=== PATIENT | female | born 1945 | race Caucasian/White ===

== ENCOUNTER → 2016-11-10 | Outpatient (CLI) | payer BC ==
[~2016-11-10] MED LIST: AMLO2.5T PO; ATOR10TA88 PO; B-COCAP2 PO; CHOL100010 PO; CYCL0.052 OP; ECOTRIN TAB81 MG PO; FLNIN NAE; LEVO50TA6 PO; LEVO75TA PO; LPT40 PO; METO25TA3 PO; METO25TA56 PO; MULT-506 PO; NTRGSL/4 SL; OS CAL OR; PANT40TA PO; PLV75 PO; SYN75 PO; VITA400C15 PO; VITBC PO; [UNRECOGNIZED DRUG - OTHER] OR
--- NOTE | 2016-11-10 10:06 | DIAGNOSTIC IMAGING REPORT ---
KUB HISTORY: Left-sided abdominal pain. COMPARISON: KUB 04/10/2009. FINDINGS: The bowel gas pattern is unremarkable. There are no dilated loops of small bowel to suggest an obstruction. No renal calculi. No ureteral calculi. Calcifications in the deep pelvis likely represent phleboliths. These remain unchanged. Prior rectal anastomosis with surgical clips within the left deep pelvis. Cholecystectomy clips are again noted. Moderate amount well-formed stool seen within the descending colon, sigmoid colon, and rectum. No pneumoperitoneum or pneumatosis. IMPRESSION: 1. Moderate well-formed stool seen within the distal colon. 2. Postoperative changes, unchanged. 3. No evidence for bowel obstruction. Electronically signed by: Olvin Langley M.D. 11/10/2016 10:04 AM Dictated Date/Time: 11/10/2016 10:03 AM
[2016-11-19 15:01] LABS: CRYPTOSPORIDIUM AG TC 37213 NOT DETECTED (NOT DETECTED); O&P GIARDIA AG NOT DETECTED (NOT DETECTED); O&P SOURCE OTHER
== END | disposition home or self-care (01) ==
LOC: C.RADBC 09:23
PROVIDERS: ATTEND Nurse Practitioner Family
DX: R10.9 Unspecified abdominal pain (principal); R14.0 Abdominal distension (gaseous); R19.5 Other fecal abnormalities; Z87.11 Personal history of peptic ulcer disease

== ENCOUNTER 2016-12-29 07:56 | Observation (INO) | payer BC ==
[2016-12-27 12:13] LABS: HEMATOCRIT 41.7 % (37-47); MEAN CELL VOLUME 94.1 fL (80-100); MEAN CORPUSCULAR HEMOGLOBIN 31.2 pg (25-34); MEAN CORPUSCULAR HGB CONC 33.1 g/dl (32-36); MEAN PLATELET VOLUME 11.5 fL (7.4-10.4); PLATELET COUNT 228 K/uL (130-400); RED BLOOD COUNT 4.43 M/uL (4.2-5.4); WHITE BLOOD COUNT 5.84 K/uL (4.8-10.8)
[2016-12-27 12:18] LABS: PROTHROMBIN TIME (PATIENT) 10.4 SECONDS (9.0-12.0)
[2016-12-27 13:57] LABS: BLOOD UREA NITROGEN 16 mg/dl (7-18); BUN/CREATININE RATIO 14.4 (10-20); CALCIUM 9.7 mg/dl (8.5-10.1); CARBON DIOXIDE 28 mmol/L (21-32); CHLORIDE 107 mmol/L (98-107); GLUCOSE 89 mg/dl (70-99); POTASSIUM 4.3 mmol/L (3.5-5.1); SODIUM 142 mmol/L (136-145)
[~2016-12-29] VITALS: Ht 152.4 cm; Wt 61.3 kg
[2016-12-29] VITALS (13 sets, daily range): BP systolic 106–165; BP diastolic 52–86; PULSE 46–63; TEMP 36.4–36.7; O2SAT 95–98; Ht 152.4 cm; Wt 61.3 kg
[~2016-12-29 07:56] MED LIST changes: +ATOR10TA82 PO; -ATOR10TA88 PO; -LPT40 PO; -PLV75 PO
--- NOTE | 2016-12-29 09:21 | History & Physical Bridge Note ---
H&P Re-Evaluation Bridge Note: I have examined the patient, reviewed the History & Physical and in the interval since the performance of the History & Physical I have noted the following changes of clinical significance:SHe has been having more frequent episodes of chest pain. Some at rest.
--- NOTE | 2016-12-29 09:24 | Procedure Note ---
Pre-Mod Sedation Assessment General Date of Moderate Sedation: December 29, 2016. Vital Signs: Vital Signs Past 12 Hours Date Time Temp Pulse Resp B/P Pulse Ox O2 Delivery O2 Flow Rate FiO2 12/29/16 08:31 36.7 63 16 165/75 96 Room Air Review Cardiovascular: regular rate, rhythm Lungs: lungs clear Pre-Sedation Airway Assessment Oral Cavity: WNL Able to Visualize Vocal Cords: No Short Thick Neck: No Hx of Sleep Apnea: No Smoking Status: Never Smoker Mallampati Classification: Class III ASA Classification: Class III Procedure Planning Contraindications-for Mod Sed: None Yes Notes The planned sedation has been discussed with the patient and consent obtained. I have identified the patient, determined the appropriateness of sedation and have assessed the patient immediately prior to the procedure. All medicine(s) and interventions are by my order.
[2016-12-29] MEDS ORDERED: FENTANYL CITRATE INJ 50 MCG/1 ML 2 ML VIAL ONE (11:15)
[2016-12-29] MEDS ORDERED: NiCARDipine HCL INJ 2.5 MG/ML 10 ML AMP ONE (11:15)
[2016-12-29] MEDS ORDERED: HEPARIN SOD (PORCINE) 1000 UNIT/ML 10 ML VIAL ONE (11:15)
[2016-12-29] MEDS ORDERED: NITROGLYCERIN/D5W 100MCG/ML 20ML SYR ONE (11:15)
[2016-12-29] MEDS ORDERED: MIDAZOLAM HCL 1 MG/ML 2ML VIAL ONE (11:15)
[2016-12-29] MEDS ORDERED: CLOPIDOGREL BISULFATE 300 MG TAB PO ONE (13:24)
--- NOTE | 2016-12-29 13:28 | Procedure Note ---
Post-Mod Sedation Assessment General Date of Moderate Sedation December 29, 2016. Vital Signs: Vital Signs Past 12 Hours Date Time Temp Pulse Resp B/P Pulse Ox O2 Delivery O2 Flow Rate FiO2 12/29/16 13:15 53 18 122/68 99 Mask 3 12/29/16 08:31 36.7 63 16 165/75 96 Room Air Review - Discharge Criteria Vital Signs Stable: Yes Alert/Oriented/Conversant: Yes Returned to Baseline Mental St: Yes Nausea Absent/Minimal: Yes Pain/Discomfort/Absent/Minimal: Yes Normal/Baseline Respirations: Yes Active Bleeding?: No Pt Received D/C Instructions: N/A Prescriptions Given: None Specific Proced. D/C Criteria Distal Pulses Present (Cardiac: Yes Groin site assessed-Card Cath: N/A Voided Prior To Discharge: N/A Discharged Patients Adult Escort/Transportation: Yes
[2016-12-29] MEDS ORDERED: NITROGLYCERIN 0.4 MG SL PER TAB CHARGE SL PRN (13:30)
[2016-12-29] MEDS ORDERED: SODIUM CHLORIDE 0.9% 1000ML 1,000 ML IV SCH (13:30)
[2016-12-29] MEDS ORDERED: ONDANSETRON INJ 2 MG/ML 2 ML VIAL IV PRN (13:30)
--- NOTE | 2016-12-29 13:43 | Cardiac Catheterization ---
Procedure Note Procedure Date December 29, 2016. Pre-Procedure Diagnosis Angina, Positive Stress Test AUC Score 7 Post-Procedure Diagnosis Severe CAD, Successful PCI Procedure(s) Performed Drug Eluting Stent Twister Hand Dr. Russ Automobile Mechanic Apprentice(s) Glunt Estimated Blood Loss 20 Medication(s) Clopidogrel, Heparin, Nitroglycerin Summary of Findings Indication: Positive stress/Unstable angina Access: 6Fr Slender Right Radial Artery Catheters: EBU 3.5 guide Findings: For full details of patient's coronary anatomy please see cath report dictated by Dr. Tang. Briefly patient found to have a 95% proximal LAD stenosis at the take-off a small-moderate caliber 1st diagonal. 1st diagonal with 95% ostial stenosis. -- PCI -- Antithrombotic therapy: Heparin, Clopidogrel Procedure: LM cannulated with EBU 3.5 guide BMW wire passed across lesion into distal LAD Prowater wire passed across diagonal lesion into distal vessel LAD lesion predilated with 2.0 compliant balloon Diagonal lesion predilated with 2.0 compliant balloon Dilated proximal LAD lesion stented with 3.0 x 15 Xience CRUZITO Diagonal re-wired with Special Education Paraprofessional 50 wire Stent struts dilated with 1.5 and 2.0 balloons. Kissing balloon inflation with 3.0 NC in LAD an 2.0 balloon in diagonal IC vasodilators administered for spasm Post procedure VAN 3 flow, stent well expanded with minimal residual stenosis and no apparent cardiac complications. 20-30% residual ostial stenosis in diagonal, no evidence of flow limiting dissection. Arterial Closure: TR Band Summary: 1. Successful PCI of proximal LAD, 1st diagonal bifurcation with one CRUZITO (3.0 x 15 Xience) and kissing balloon inflation of LAD/Diagonal. Recommendations: To PCU for continued monitoring Loaded with Clopidogrel 600 mg in research laboratory specialist. Continue dual-antiplatelet therapy with ASA/Clopidogrel for 1 year Start high-intensity statin, continue metoprolol and ASCVD risk factor modification Consult cardiac Rehab Hemodynamics Rest Ao: 131/61/90 Final Ao: 129/52/81 LV: -- Recommendations PCI without planned CABG Specimens None Radiation Exposure (mGy) 1944 Contrast (mls) 120 Visi Fluids (cc crystalloids) 175 Drains None Anesthesia Moderate Procedural Complication(s) None Disposition PCU ACC Data Cardiac Status Clinical evaluation leading to the procedure CAD Presntation: Unstable angina, Positive Stress Test Anginal Classification: CCS III Heart Failure: No, Yes, NYHA Class: CCS I Cardiogenic Shock w/in 24Hrs: No Cardiac Arrest w/in 24Hrs: No Imaging studies past 6 months: Yes Stress studies past 6 months: Yes Standard Exercise Stress Test: No Stress Echocardiogram: Yes - Positive Stress Testing w/SPECT MPI: No Cardiac CTA: No Coronary Anatomy Dominant: Right LAD (% Stenosis): Proximal (95) D1 (% Stenosis): Ostial (95) Diagnostic Physician's Name: Javon Tang MD Status: Elective Closure Device Percutaneous Entry Location: Radial Recommendations: PCI without planned CABG PCI Indication: Unstable Angina, + Stress Test Lesion Segment Name: Proximal LAD Culprit Artery: Yes Stenosis Prior to Rx (%): 95 Chronic Total Occlusion: No IVUS: No Pre-Procedure VAN Flow: 3 Previously Treated Lesion: No Lesion Complexity: High/C Lesion Length (mm): 12 Thrombus Present: No Bifurcation Lesion: Yes Guidewire Across Lesion: Yes Guidewire: Stenosis Post-Procedure (%): 0 Post-Procedure VAN Flow: 3 Device(s) Deployed: Yes Type of Device(s): Xience 3.0 x 15 Intraprocedure Events Significant Dissection: No Perforation: No
[2016-12-29] MEDS ORDERED: IV FLUIDS COMPLETED PRN (14:00)
[2016-12-29] MEDS: ACETAMINOPHEN 325 MG TAB PO PRN ×2 (15:05→22:23)
[2016-12-29] MEDS ORDERED: MoRPHine SULFATE 2 MG/ML CARP IV PRN (16:30)
[2016-12-30 00:07] VITALS: BP 106/55; PULSE 61; TEMP 36.6; O2SAT 97
[2016-12-30] MEDS: RESTASIS-ORDER AWAITING ACTION SCH ×3 (00:51→07:48)
[2016-12-30 03:32] VITALS: BP 118/72; PULSE 60; TEMP 36.3; O2SAT 97
[2016-12-30] MEDS ORDERED: LEVOTHYROXINE 50 MCG TAB PO SCH (06:30)
[2016-12-30 07:26] LABS: BASO % 0.3 %; BASO ABS # 0.02 K/uL (0-0.2); COMPLETE YES; EOS % 0.6 %; HEMATOCRIT 35.7 % (37-47); IG% 0.1 %; MEAN CELL VOLUME 93.5 fL (80-100); MEAN CORPUSCULAR HEMOGLOBIN 30.4 pg (25-34); MEAN CORPUSCULAR HGB CONC 32.5 g/dl (32-36); MEAN PLATELET VOLUME 11.4 fL (7.4-10.4); MONO % 9.4 %; NEUT % 63.6 %; PLATELET COUNT 177 K/uL (130-400); RED BLOOD COUNT 3.82 M/uL (4.2-5.4); WHITE BLOOD COUNT 6.92 K/uL (4.8-10.8)
--- NOTE | 2016-12-30 07:37 | Procedure Note ---
Post-Mod Sedation Assessment General Date of Moderate Sedation December 30, 2016. Vital Signs: Vital Signs Past 12 Hours Date Time Temp Pulse Resp B/P Pulse Ox O2 Delivery O2 Flow Rate FiO2 12/30/16 04:00 Room Air 12/30/16 03:32 36.3 60 16 118/72 97 Room Air 12/30/16 00:07 36.6 61 16 106/55 97 Room Air 12/30/16 00:00 Room Air 12/29/16 20:00 Room Air 12/29/16 19:43 36.6 63 16 136/78 98 Room Air Review - Discharge Criteria Vital Signs Stable: Yes Alert/Oriented/Conversant: Yes Returned to Baseline Mental St: Yes Nausea Absent/Minimal: Yes Pain/Discomfort/Absent/Minimal: Yes Normal/Baseline Respirations: Yes Active Bleeding?: No Pt Received D/C Instructions: N/A Prescriptions Given: None Specific Proced. D/C Criteria Distal Pulses Present (Cardiac: Yes Groin site assessed-Card Cath: N/A Voided Prior To Discharge: N/A Discharged Patients Adult Escort/Transportation: Yes
[2016-12-30 07:45] VITALS: BP 133/70; PULSE 76; TEMP 36.5; O2SAT 98
[2016-12-30 08:04] LABS: BUN/CREATININE RATIO 17.2 (10-20); CREATININE 0.83 mg/dl (0.60-1.20); POTASSIUM 3.7 mmol/L (3.5-5.1)
[2016-12-30] MEDS ORDERED: PLV75 PO (08:29)
[2016-12-30] MEDS ORDERED: LPT40 PO (08:29)
--- NOTE | 2016-12-30 08:36 | Discharge Instructions ---
Discharge Instructions Date of Service December 30, 2016. Admission Reason for Admission: CAD Discharge Discharge Diagnosis / Problem: stent in LAD Discharge Goals Goal(s): Decrease discomfort, Improve function Activity Recommendations Activity Limitations: per Instructions/Follow-up section Lifting Limitations: no more than 10 pounds Exercise/Sports Limitations: rest today, gradually increase as tolerated May Resume Sexual Activity: after one week Driving or Machine Use: resume 3 days after discharge ACTIVITY RECOMMENDATIONS: Excess manipulation of the wrist should be avoided for the next 24-48 hours. * No lifting over 2 pounds (approximately a 1/2 gallon of milk) with the utilized arm for 24 hours. * No strenuous activity such as bowling or tennis for 3 days. * Keep the site of the procedure covered with a bandage for 24 hours. *You may shower the day after the procedure. Do not take a tub bath or submerge the puncture site in water for the next 3 days. *Do not operate any motorized equipment for 3 days. SPECIAL CARE INSTRUCTIONS: The site may be slightly bruised and sore following your procedure. Should any of the following occur, contact the Dr. who performed your procedure. 1. Redness/inflammation, swelling, chills, or fever, or colored drainage at procedure site within 3-7 days after your procedure. 2. Coldness, discoloration, ongoing numbness, severe pain, or swelling. Expect mild tingling of hand and tenderness at the puncture site for up to three days. If this persists beyond three days, or other symptoms develop, notify the Dr. who performed your procedure. BLEEDING: If the procedure site on your wrist begins to bleed, do not panic 1. Place 1 or 2 fingers firmly just slightly above the insertion site to stop the bleeding. You may be able to feel your pulse as you hold pressure. 2. Lift your finger after 5 minutes to see if the bleeding has stopped. 3. Once the bleeding has stopped, gently wipe the wrist area clean with a bandage. * If the bleeding from your wrist does not stop after 10 minutes, or if there is a large amount of bleeding or spurting, call 911 (do not drive yourself to the hospital). SKIN IRRITATION: * You may experience some redness and/or swelling in the area where radiation was administered. If any skin irritation occurs, please contact your family physician. FOLLOW UP VISIT: Keep any scheduled doctor appointments. . Instructions / Follow-Up Instructions / Follow-Up ACTIVITY RECOMMENDATIONS: Excess manipulation of the wrist should be avoided for the next 24-48 hours. * No lifting over 2 pounds (approximately a 1/2 gallon of milk) with the utilized arm for 24 hours. * No strenuous activity such as bowling or tennis for 3 days. * Keep the site of the procedure covered with a bandage for 24 hours. *You may shower the day after the procedure. Do not take a tub bath or submerge the puncture site in water for the next 3 days. *Do not operate any motorized equipment for 3 days. SPECIAL CARE INSTRUCTIONS: The site may be slightly bruised and sore following your procedure. Should any of the following occur, contact the Dr. who performed your procedure. 1. Redness/inflammation, swelling, chills, or fever, or colored drainage at procedure site within 3-7 days after your procedure. 2. Coldness, discoloration, ongoing numbness, severe pain, or swelling. Expect mild tingling of hand and tenderness at the puncture site for up to three days. If this persists beyond three days, or other symptoms develop, notify the Dr. who performed your procedure. BLEEDING: If the procedure site on your wrist begins to bleed, do not panic 1. Place 1 or 2 fingers firmly just slightly above the insertion site to stop the bleeding. You may be able to feel your pulse as you hold pressure. 2. Lift your finger after 5 minutes to see if the bleeding has stopped. 3. Once the bleeding has stopped, gently wipe the wrist area clean with a bandage. * If the bleeding from your wrist does not stop after 10 minutes, or if there is a large amount of bleeding or spurting, call 911 (do not drive yourself to the hospital). SKIN IRRITATION: * You may experience some redness and/or swelling in the area where radiation was administered. If any skin irritation occurs, please contact your family physician. FOLLOW UP VISIT: Keep any scheduled doctor appointments. Current Hospital Diet Patient's current hospital diet: AHA Diet (Heart Healthy) Discharge Diet Recommended Diet: AHA Diet (Heart Healthy) Fluid Restriction: None Procedures Procedures Performed: cardiac cath with stent placed i n left anterior decending artery Pending Studies Studies pending at discharge: no Medical Emergencies ACTIVITY RECOMMENDATIONS: Excess manipulation of the wrist should be avoided for the next 24-48 hours. * No lifting over 2 pounds (approximately a 1/2 gallon of milk) with the utilized arm for 24 hours. * No strenuous activity such as bowling or tennis for 3 days. * Keep the site of the procedure covered with a bandage for 24 hours. *You may shower the day after the procedure. Do not take a tub bath or submerge the puncture site in water for the next 3 days. *Do not operate any motorized equipment for 3 days. SPECIAL CARE INSTRUCTIONS: The site may be slightly bruised and sore following your procedure. Should any of the following occur, contact the Dr. who performed your procedure. 1. Redness/inflammation, swelling, chills, or fever, or colored drainage at procedure site within 3-7 days after your procedure. 2. Coldness, discoloration, ongoing numbness, severe pain, or swelling. Expect mild tingling of hand and tenderness at the puncture site for up to three days. If this persists beyond three days, or other symptoms develop, notify the Dr. who performed your procedure. BLEEDING: If the procedure site on your wrist begins to bleed, do not panic 1. Place 1 or 2 fingers firmly just slightly above the insertion site to stop the bleeding. You may be able to feel your pulse as you hold pressure. 2. Lift your finger after 5 minutes to see if the bleeding has stopped. 3. Once the bleeding has stopped, gently wipe the wrist area clean with a bandage. * If the bleeding from your wrist does not stop after 10 minutes, or if there is a large amount of bleeding or spurting, call 911 (do not drive yourself to the hospital). SKIN IRRITATION: * You may experience some redness and/or swelling in the area where radiation was administered. If any skin irritation occurs, please contact your family physician. FOLLOW UP VISIT: Keep any scheduled doctor appointments. . Who to Call and When: Medical Emergencies: If at any time you feel your situation is an emergency, please call 911 immediately. . Non-Emergent Contact Non-Emergency issues call your: Customer Trainer . . "Provider Documentation" section prepared by Dae Tang. . VTE Core Measure Inpt VTE Proph given/why not?: Other Anticoagulation
--- NOTE | 2016-12-30 08:39 | Discharge Summary ---
Discharge Summary Admission Date: December 29, 2016 at 12:41 Discharge Date: December 30, 2016 Discharge Disposition: Home Primary Diagnosis: unstable angina Procedures: cardiac cath and stent placement to LAD Discharge Instructions Last Recorded Wt (Kilograms): 61.300 Activity Recommendations: limitations Return to School/Work: limitations Diet At Discharge: low sodium, low cholesterol Allergies: Coded Allergies: Clarithromycin (Verified Adverse Reaction, Unknown, MOUTH SORES, 11/10/15) Home Health Services: none Special Care: Call your doctor if: * Temperature above 101 degrees * Pain not relieved by pain medicine ordered * There is increased drainage or redness from any incision * You have any unanswered questions or concerns. Avoid all tobacco products. If you need help to stop smoking, call [place]'s FREE QUITLINE at . This is a free call. Admission HPI Patient with h istory aof CAD and unstable angina Admission Physical Exam Head: normocephalic Cardiovascular: Heart Auscultation: RRR Peripheral Pulses: Radial Pulse: normal on the right Extremities: no cyanosis Hospital Course (1) CAD (coronary artery disease) Hospital Course: Patient had some nausea, headache and abdominal pain after the procedure which resolved with time and narcotics. Normal EKG at that time. Otherwise uncomplicated stenting of the LAD. Total time spent on discharge = This includes examination of the patient, discharge planning, medication reconciliation, and communication with other providers.
[2016-12-30] MEDS ORDERED: ATORVASTATIN 40 MG TAB PO SCH (09:00)
[2016-12-30] MEDS ORDERED: ASPIRIN 81 MG ECTAB PO SCH (09:00)
[2016-12-30] MEDS ORDERED: CHOLECALCIFEROL 1000 INTER.UNIT TAB PO SCH (09:00)
[2016-12-30] MEDS ORDERED: CLOPIDOGREL BISULFATE 75 MG TAB PO SCH (09:00)
[2016-12-30] MEDS ORDERED: PANTOprazole SOD 40 MG TAB PO SCH (09:00)
[2016-12-30] MEDS ORDERED: AMLODIPINE BESYLATE 5 MG TAB PO SCH (09:00)
[2016-12-30] MEDS ORDERED: METOPROLOL TARTRATE 25 MG TAB PO SCH (09:00)
[2016-12-30] MEDS ORDERED: VITAMIN B COMPLEX TAB PO SCH (09:00)
[2016-12-30] MEDS ORDERED: TOCOPHERYL, DL-ALPHA 400 INTER.UNIT CAP PO SCH (09:00)
--- NOTE | 2016-12-30 10:00 | CARDIAC CATH REPORT ---
PROCEDURE PERFORMED: Coronary angiography. DIRECTOR OF REHABILITATIVE SERVICES: Dr. Javon Tang. INDICATION: Mrs. Isadora Ervin is a 71-year-old female with a history of coronary artery disease involving ostial stenosis of the first diagonal branch. The patient has been having more episodes of both exertional and rest chest pain over the past few weeks. Additionally, she underwent exercise echocardiography, which suggested inducible ischemia in the inferior distribution. Based on the symptoms, she was advised to undergo cardiac catheterization today. PROCEDURE IN DETAIL: The patient was informed of the risks, benefits and alternatives to the intended procedures. She understood such and wished to proceed. She was taken to the cardiac catheterization suite in a fasting state. Conscious sedation was administered per protocol and the patient was monitored electrocardiographically throughout today's procedure. The right wrist area was prepped and draped in the usual fashion. The right radial artery was then accessed using a modified Seldinger technique. A sheath was placed over guidewire at this site and used to passage of the cardiac catheters for engaging the coronary arteries. Coronary angiography was then performed in multiple orthogonal views prior to removal of the catheters. The patient tolerated the procedure well. There were no immediate complications. Opening aortic pressure is 103/48. CORONARY ANGIOGRAPHY: 1. LEFT MAIN: Left main coronary artery was normal in size and caliber and bifurcated normally into the left anterior descending and left circumflex artery. 2. LEFT ANTERIOR DESCENDING: Left anterior descending artery was a large transapical vessel. There was a 99% stenosis involving the body of the LAD and the first diagonal branch. Remainder of the vessel was free of angiographic disease. 3. LEFT CIRCUMFLEX: The left circumflex artery was a non-dominant vessel. It bifurcated in to several OM branches without evidence of obstructive coronary disease. 4. RIGHT CORONARY: The right coronary was a dominant vessel, which produced the PDA. There was no significant angiographic disease in this distribution. IMPRESSION: Significant stenosis involving the proximal left anterior descending at the level of the first diagonal branch. PLAN: The patient will be referred for immediate percutaneous intervention involving this vessel.
[2016-12-30 10:46] VITALS: BP 133/70; PULSE 76; TEMP 36.5; O2SAT 98
[2016-12-31] MEDS ORDERED: LEVOTHYROXINE 75 MCG TAB PO SCH (06:30)
== END 2016-12-30 11:30 | disposition home or self-care (01) ==
LOC: ENRESERVDT → ENRESERVTM → C.CATH 07:56 → C.2T 12:41
PROVIDERS: ADMIT Internal Medicine Interventional Cardiology; ATTEND Orthopaedic Surgery Orthopaedic Surgery of the Spine
DX: I25.110 Atherosclerotic heart disease of native coronary artery with unstable angina pectoris (principal)

== ENCOUNTER → 2017-02-09 | Outpatient (CLI) | payer BC ==
[~2017-02-09] MED LIST changes: -ATOR10TA82 PO; -B-COCAP2 PO; -FLNIN NAE; +LPT40 PO; -METO25TA3 PO; -MULT-506 PO; -OS CAL OR; +PLV75 PO; -SYN75 PO; -[UNRECOGNIZED DRUG - OTHER] OR
--- NOTE | 2017-02-10 07:58 | MAMMOGRAPHY REPORT ---
BILATERAL DIGITAL SCREENING MAMMOGRAM TOMOSYNTHESIS WITH CAD: 02/09/2017 CLINICAL HISTORY: Routine screening. Patient has no complaints. TECHNIQUE: Breast tomosynthesis in addition to standard 2D mammography was performed. Current study was also evaluated with a Computer Aided Detection (CAD) system. COMPARISON: Comparison is made to exams dated: 05/24/2016 mammogram, 12/29/2015 mammogram, 12/23/2014 ma mmogram - [facility], 10/10/2012 mammogram, 10/05/2010 mammogram, and 09/15/2007 mammo gram. BREAST COMPOSITION: The tissue of both breasts is almost entirely fatty. FINDINGS: No suspicious masses, calcifications, or areas of architectural distortion are noted in ei ther breast. There has been no significant interval change compared to prior exams. A linear scar jessica rkcesar denotes a scar on the right anterior breast on the MLO view. IMPRESSION: ACR BI-RADS CATEGORY 1: NEGATIVE There is no mammographic evidence of malignancy. A 1 year screening mammogram is recommended. The pa tient will receive written notification of the results. Approximately 10% of breast cancers are not detected with mammography. A negative mammographic report should not delay biopsy if a clinically suggestive mass is present. Kathie Callejas M.D. /:02/09/2017 14:29:42 Diesel Lube Tech: Batsheva CARMEN)(Fiona)(BD), [facility] letter sent: Normal 1/2 BI-RADS Code: ACR BI-RADS Category 1: Negative
== END | disposition home or self-care (01) ==
LOC: C.MAMM 11:34
PROVIDERS: ATTEND Obstetrics & Gynecology
DX: Z12.31 Encounter for screening mammogram for malignant neoplasm of breast (principal)

== ENCOUNTER → 2017-04-26 | Outpatient (CLI) | payer BC | END | disposition home or self-care (01) | LOC: C.LAB1850 08:41 | PROVIDERS: ATTEND Internal Medicine Clinical Cardiac Electrophysiology | DX: Z01.89 Encounter for other specified special examinations (principal) ==

== ENCOUNTER → 2017-07-18 | Outpatient (CLI) | payer BC ==
--- NOTE | 2017-07-18 09:39 | DIAGNOSTIC IMAGING REPORT ---
CHEST 2 VIEWS ROUTINE HISTORY: Cough. COMPARISON: Chest 10/04/2012. FINDINGS: Focal consolidation seen within the right upper lobe anteriorly. This is best seen on the lateral view. The left lung is clear. The heart is normal in size. No pleural effusions. No pneumothorax. IMPRESSION: Small focal consolidation within the right upper lobe anteriorly which favors a pneumonia. However, a focus of atelectasis could also have a similar appearance. One month chest x-ray follow up is recommended to ensure complete resolution. However, if the patient is not experiencing pneumonia type symptoms then a dedicated chest CT is recommended to exclude an underlying pulmonary lesion. Electronically signed by: Olvin Langley M.D. 07/18/2017 9:38 AM Dictated Date/Time: 07/18/2017 9:32 AM
== END | disposition home or self-care (01) ==
LOC: C.RAD1850 09:17
PROVIDERS: ATTEND Family Medicine Hospice and Palliative Medicine
DX: R05 Cough (principal)

== ENCOUNTER → 2017-08-29 | Outpatient (CLI) | payer BC ==
--- NOTE | 2017-08-29 14:08 | DIAGNOSTIC IMAGING REPORT ---
TWO VIEW CHEST CLINICAL HISTORY: Follow-up right upper lobe pneumonia. FINDINGS: PA and lateral chest radiographs are compared to study dated 07/18/2017. The cardiomediastinal silhouette is unremarkable. There is atherosclerotic calcification of the thoracic aorta. The lungs and pleural spaces are clear. There is no pneumothorax. The skeletal structures are osteopenic. The bony thorax appears intact. Cholecystectomy clips are seen in the right upper quadrant. IMPRESSION: The lungs are clear. Right upper lobe consolidation seen on 07/10/2017 has resolved. Electronically signed by: Baljeet El M.D. 08/29/2017 2:07 PM Dictated Date/Time: 08/29/2017 2:05 PM
[2017-08-29 14:36] LABS: HEMATOCRIT 41.1 % (37-47); HEMOGLOBIN 14.1 g/dL (12.0-16.0); MEAN CELL VOLUME 91.9 fL (80-100); MEAN CORPUSCULAR HEMOGLOBIN 31.5 pg (25-34); MEAN CORPUSCULAR HGB CONC 34.3 g/dl (32-36); MEAN PLATELET VOLUME 11.4 fL (7.4-10.4); PLATELET COUNT 256 K/uL (130-400); RED CELL DISTRIBUTION WIDTH CV 13.1 % (11.5-14.5); RED CELL DISTRIBUTION WIDTH SD 43.5 fL (36.4-46.3); WHITE BLOOD COUNT 6.72 K/uL (4.8-10.8)
[2017-08-29 14:48] LABS: PTT PATIENT 25.4 SECONDS (21.0-31.0)
[2017-08-29 15:07] LABS: BLOOD UREA NITROGEN 13 mg/dl (7-18); CALCIUM 8.9 mg/dl (8.5-10.1); CARBON DIOXIDE 28 mmol/L (21-32); CREATININE 1.09 mg/dl (0.60-1.20); GLUCOSE 86 mg/dl (70-99); SODIUM 137 mmol/L (136-145)
== END | disposition home or self-care (01) ==
LOC: C.LAB1850 13:16
PROVIDERS: ATTEND Family Medicine Hospice and Palliative Medicine
DX: Z01.818 Encounter for other preprocedural examination (principal); J18.1 Lobar pneumonia, unspecified organism

== ENCOUNTER → 2017-10-05 | Outpatient (CLI) | payer BC ==
--- NOTE | 2017-10-05 15:32 | DIAGNOSTIC IMAGING REPORT ---
L ANKLE MIN 3 VIEWS ROUTINE CLINICAL HISTORY: M25.572 pain COMPARISON: None. DISCUSSION: The bones and joint spaces appear intact. There is no evidence of fracture, dislocation or bony disease. Mild lateral soft tissue edema IMPRESSION: Mild soft tissue edema. No acute bony abnormality. The above report was generated using voice recognition software. It may contain grammatical, syntax or spelling errors. Electronically signed by: Evan Sky M.D. 10/05/2017 3:31 PM Dictated Date/Time: 10/05/2017 3:30 PM
== END | disposition home or self-care (01) ==
LOC: C.LAB1850 15:17
PROVIDERS: ATTEND Physician Assistant
DX: M25.572 Pain in left ankle and joints of left foot (principal); M25.472 Effusion, left ankle

== ENCOUNTER 2020-12-03 16:41 | Observation (INO) ==
--- NOTE | 2020-12-03 17:18 | XRay Report ---
XR chest 1V portable HISTORY: 75 years-old Female Chest Pain acute atypical chest pain COMPARISON: Chest radiographs 08/29/2017 TECHNIQUE: Portable AP view of the chest FINDINGS: Cardiomediastinal and hilar silhouettes are within normal limits. Calcified plaque of the thoracic ao rta. No pneumothorax, pleural effusion, airspace consolidation or overt pulmonary edema. Bones of the chest appear grossly intact. Cholecystectomy. IMPRESSION: No acute process. ACT 112: Negative or not required by law. The above report was generated using voice recognition software. It may contain grammatical, syntax o r spelling errors. Electronically signed by: Roberto Russo M.D. 12/03/2020 5:17 PM
[2020-12-03 17:31] LABS: Basophils # (auto) 0.02 K/uL (0-0.2); Basophils % (auto) 0.3 %; Eosinophils # (auto) 0.07 K/uL (0-0.5); Eosinophils % (auto) 1.2 %; Hematocrit (blood only) 39.8 % (37-47); Hemoglobin 13.3 g/dL (12.0-16.0); Immature Granulocytes # (auto) 0.01 K/uL (0.00-0.02); Immature Granulocytes % (auto) 0.2 %; Lymphocytes # (auto) 1.45 K/uL (1.2-3.4); Lymphocytes % (auto) 24.6 %; Mean Corpuscular Hemoglobin 30.4 pg (25-34); Mean Corpuscular Hgb Conc 33.4 g/dL (32-36); Mean Corpuscular Volume 90.9 fL (80-100); Mean Platelet Volume 10.8 fL (7.4-10.4); Monocytes # (auto) 0.57 K/uL (0.11-0.59); Monocytes % (auto) 9.7 %; Neutrophils # (auto) 3.78 K/uL (1.4-6.5); Platelet Count 215 K/uL (130-400); RDW Coefficient of Variation 12.8 % (11.5-14.5); RDW Standard Deviation 42.4 fL (36.4-46.3); Red Blood Count 4.38 M/uL (4.2-5.4)
[2020-12-03 17:42] LABS: Partial Thromboplastin Time 26.7 Seconds (21.0-31.0); Prothrombin Time 10.4 Seconds (9.0-12.0)
[2020-12-03 17:48] LABS: Alanine Aminotransferase 20 U/L (12-78); Albumin Level 3.5 gm/dl (3.4-5.0); Aspartate Aminotransferase 18 U/L (15-37); BUN Creatinine Ratio 21.9 (10-20); Blood Urea Nitrogen 21 mg/dl (7-18); Calcium 8.6 mg/dl (8.5-10.1); Carbon Dioxide 27 mmol/L (21-32); Chloride 110 mmol/L (98-107); Est GFR (African American) 65.3; Est GFR (Non-African American) 56.3; Glucose 105 mg/dl (70-99); Potassium 3.8 mmol/L (3.5-5.1); Sodium 142 mmol/L (136-145)
[2020-12-03 17:53] LABS: Alkaline Phosphatase 78 U/L (45-117); Bilirubin,Total 0.4 mg/dl (0.2-1); Globulin 3.4 gm/dl (2.5-4.0); Total Protein 6.9 gm/dl (6.4-8.2); Troponin I < 0.015 ng/ml (0-0.045)
--- NOTE | 2020-12-03 18:10 | Emergency Department Note ---
History of Present Illness General Chief complaint: Chest Pain Stated complaint: CHEST TIGHTNESS/BURNING, SOB, COV NEG ON 12/02 Time Seen by Provider: 12/03/20 17:58 Source: patient Mode of arrival: ambulatory Limitations: no limitations History of Present Illness Provider complaint: chest pain Onset (ago): week(s) 1 Location: chest Radiation: non-radiation Severity: moderate Pain Consistency: + colicky Maximum Pain Intensity: 2 Quality: + burning and + sharp Exacerbated By: + other (lying supine) Associated symptoms: + shortness of breath; no fever/chills and no nausea/vomiting Treatments prior to arrival: none This is 75 yo female who presents with complaints of chest pressure that began last . Today pain was sharper and took her breath away. Pt does have hx of GERD and takes pantoprazole twice daily. Patient was worries about recent sinus infection and eye discharge and saw her eye doctor and ENT. She did see her cpas Dr. Smith last week after symptoms started and had an ekg in the office and was started on doxycycline for possible URI. COVID test the beginning of the week was negative. Patient states he has taken doxycycline the past and has not had any significant worsening reflux symptoms or additional GI irritation. Patient states her family doctor did suggest that could have been the reason for her symptoms and suggested she use Maalox in the interim. Jered mcleod states she drank an entire bottle of Maalox this afternoon and it did not help with her symptoms. Patient concerned given the persistent pressure and now worsening sharper pain today. Patient does feel slightly increased shortness of breath, no other radiation of pain. No lower extremity swelling or calf tenderness. Patient states Dr. Smith did schedule an echo for her in the fall. She cannot recall when her last echo or stress test were. Patient denies any trauma or change in activity. Patient is patient most concerned for her heart as she has a stent in her LAD and states she had atypical symptoms of a sore throat at that time. It was only found after an abnormal stress test. She states she was never told she had a heart attack. Pt seen during a time of high acuity and national emergency pandemic while wearing PPE. Home Medications Medication Instructions Recorded Confirmed Type Restasis 0.4 drp OPHTHALMIC (EYE) DAILY 01/10/19 12/03/20 History aspirin [Aspirin Low Dose] 81 mg PO DAILY 01/10/19 12/03/20 History ezetimibe 10 mg PO DAILY 01/10/19 12/03/20 History hydralazine 10 mg PO TID 01/10/19 12/03/20 History levothyroxine 50 mcg PO QAM 01/10/19 12/03/20 History levothyroxine 75 mcg PO QAM 01/10/19 12/03/20 History metoprolol succinate 12.5 mg PO DAILY 01/10/19 12/03/20 History vitamin E 100 unit PO DAILY 01/10/19 12/03/20 History pantoprazole 40 mg tablet,delayed 40 mg PO BID tab 06/23/20 12/03/20 History release multivitamin with minerals-folic 1 tab PO DAILY tab 08/03/20 12/03/20 History acid 200 mcg chewable tablet isosorbide mononitrate 30 mg 30 mg PO DAILY 10/05/20 12/03/20 History tablet,extended release 24 hr Allergies Allergy/AdvReac Type Severity Reaction Status Date / Time alcohol Allergy Unknown Verified 12/03/20 18:39 [From Mastisol Adhesive] atorvastatin [From Lipitor] Allergy Unknown Verified 12/03/20 18:39 citalopram [From Celexa] Allergy Unknown Verified 12/03/20 18:39 fexofenadine Allergy Unknown Verified 12/03/20 18:39 [From Rebecca-D 12 Hour] gum mastic Allergy Unknown Verified 12/03/20 18:39 [From Mastisol Adhesive] ketorolac [From Toradol] Allergy Unknown Verified 12/03/20 18:39 methyl salicylate Allergy Unknown Verified 12/03/20 18:39 [From Mastisol Adhesive] pseudoephedrine Allergy Unknown Verified 12/03/20 18:39 [From Rebecca-D 12 Hour] simvastatin [From Zocor] Allergy Unknown Verified 12/03/20 18:39 storax Allergy Unknown Verified 12/03/20 18:39 [From Mastisol Adhesive] clarithromycin AdvReac Intermediate MOUTH SORES Verified 12/03/20 18:39 ENVIRONMENTAL Allergy Intermediate YEAST/MOLD/DUST-SNEEZING, Uncoded 12/03/20 18:39 CONGESTION Past Med/Surg History Medical History Allergic rhinitis Chest pain GERD (gastroesophageal reflux disease) Hyperlipidemia Hypertension Hypothyroidism Peptic ulcer disease Plantar fasciitis of right foot Presence of drug coated stent in LAD coronary artery Surgical History H/O colonoscopy History of heart artery stent S/P breast lumpectomy S/P RIDGE-BSO S/P tooth extraction Family History Father Cancer Diabetes Stroke Mother Coronary heart disease Hypertension Heart disease Grandmother Coronary heart disease Sister Breast cancer, Onset Age: 66 Brother Hearing loss Other No family history of adverse response to anesthesia No family history of bleeding disorder Denies family history of Ovarian cancer Colorectal cancer Social History Smoking Status: Never smoker Hx Alcohol Use: Yes Hx Substance Use: No Preferred Language: Nepali Communication Ability: Effective Beliefs That Will Affect Care: None Current Living Situation: Alone Current Living Situation Comment: 7 steps into apartment building Feels Safe at Home: Yes Assistive Devices: None Review of Systems See HPI for pertinent positives & negatives. and A total of 10 systems reviewed and were otherwise negative Physical Exam Vital Signs Vital Signs - 24 hr 12/03/20 21:35 12/03/20 21:36 12/03/20 22:00 Pulse Rate 68 69 67 Pulse Rate from SpO2 Sensor 69 70 66 Respiratory Rate 17 18 19 Blood Pressure 179/94 H 160/95 H Blood Pressure Mean 122 116 Pulse Oximetry 97 97 96 Oxygen Delivery Method Room Air Room Air 12/03/20 22:30 12/03/20 23:00 12/03/20 23:30 Pulse Rate 61 61 62 Pulse Rate from SpO2 Sensor 61 61 63 Respiratory Rate 19 20 22 Blood Pressure 151/76 H 166/74 H 160/78 H Blood Pressure Mean 101 104 105 Pulse Oximetry 95 94 96 Oxygen Delivery Method Room Air Room Air Room Air GENERAL: alert, well appearing, well nourished, no distress, non-toxic EYE EXAM: normal conjunctiva, PERRL and EOM's grossly intact OROPHARYNX: no exudate, no erythema, lips, buccal mucosa, and tongue normal and mucous membranes are moist NECK: supple, no nuchal rigidity, no adenopathy, non-tender LUNGS: Clear to auscultation. Normal chest wall mechanics, no w/r/r HEART: no murmurs, S1 normal and S2 normal, no reproducible chest wall tenderness with percussion ABDOMEN: abdomen soft, non-tender, normo-active bowel sounds, no masses, no rebound or guarding. BACK: Back is symmetrical on inspection and there is no deformity, no midline tenderness, no CVA tenderness. SKIN: no rashes and no bruising UPPER EXTREMITIES: upper extremities are grossly normal. FROM, nml pulses b/l. LOWER EXTREMITIES: No pitting edema. FROM, nml pulses b/l. NEURO EXAM: Normal sensorium, cranial nerves II-XII grossly intact, normal speech, no gross weakness of arms, no gross weakness of legs. Gross sensation intact. Course Course 1910: Patient updated on results. States sharper pain is markedly improved however she does still feel a sense of pressure. 2033: Pt states still having chest pressure. Discussed cT results. Administered Medications Discontinued Medications Aspirin (Aspirin 81 Mg Ectab) 81 mg PO DAILY CLAUDIO Stop: 01/03/21 08:59 Last Admin: 12/04/20 07:55 Dose: 81 mg Documented by: [id number] Ezetimibe (Ezetimibe 10 Mg Tablet) 10 mg PO DAILY CLAUDIO Stop: 01/03/21 08:59 Last Admin: 12/04/20 07:55 Dose: 10 mg Documented by: [id number] Enoxaparin Sodium (Enoxaparin Inj 40 Mg/0.4 Ml Syr) 40 mg SQ Q24H CLAUDIO Stop: 01/03/21 08:59 Last Admin: 12/04/20 07:56 Dose: 40 mg Documented by: [id number] Famotidine (Famotidine 20mg/5ml Iv Push) 20 mg IV ONE STA Stop: 12/03/20 18:18 Last Admin: 12/03/20 18:38 Dose: 20 mg Documented by: [id number] Hydralazine HCl (Hydralazine 10 Mg Tab) 10 mg PO TID CLAUDIO Stop: 01/03/21 01:52 Last Admin: 12/04/20 14:20 Dose: 10 mg Documented by: [id number] Admin: 12/04/20 07:54 Dose: 10 mg Documented by: [id number] Admin: 12/04/20 04:15 Dose: 10 mg Documented by: [id number] Ioversol (Optiray 320 125ml) 118 ml IV ONCE ONE Stop: 12/03/20 19:33 Last Admin: 12/03/20 19:33 Dose: 1 ml Documented by: [id number] Isosorbide Mononitrate (Isosorbide [place] Extended Rel 30 Mg Tabcr) 30 mg PO DAILY [facility] Stop: 01/03/21 08:59 Last Admin: 12/04/20 07:54 Dose: 30 mg Documented by: [id number] Levothyroxine Sodium (Levothyroxine Sodium 50 Mcg Tablet) 50 mcg PO DAILYBB [facility] Stop: 01/03/21 06:29 Last Admin: 12/04/20 05:48 Dose: 50 mcg Documented by: [id number] Metoprolol Succinate (Metoprolol Succ 50mg Ext Rel Tab) 12.5 mg PO DAILY CLAUDIO Stop: 01/03/21 08:59 Last Admin: 12/04/20 07:55 Dose: 12.5 mg Documented by: [id number] Miscellaneous (Restasis~Order Awaiting Action) 1 ea N/A QS [facility] Stop: 01/03/21 07:59 Last Admin: 12/04/20 15:04 Dose: Not Given Documented by: [id number] Admin: 12/04/20 07:15 Dose: Not Given Documented by: [id number] Nitroglycerin (Nitroglycerin 2% Ointment 30gm Tube) 0.5 inch EXT NOW [facility] Stop: 12/03/20 20:40 Last Admin: 12/03/20 20:54 Dose: 0.5 inch Documented by: [id number] Pantoprazole Sodium (Pantoprazole 40 Mg Tab) 40 mg PO BID [facility] Stop: 01/03/21 08:59 Last Admin: 12/04/20 07:55 Dose: 40 mg Documented by: [id number] Sucralfate (Sucralfate 1 Gm/10 Ml Udc) 1 gm PO NOW STA Stop: 12/03/20 18:18 Last Admin: 12/03/20 18:38 Dose: 1 gm Documented by: [id number] Medical Decision Making Differential Diagnosis Differential diagnoses includes but is not limited to acute coronary syndrome, myocardial infarction, pericarditis, pulmonary embolus, aortic dissection, pneumonia, pneumothorax, musculoskeletal, shingles, esophageal. Medical Records Attestation: I reviewed the patient's medical records. Home Medications Current Medication List: was personally reviewed by me Laboratory Data Attestation: I reviewed the patient's lab results. Result diagrams: 12/04/20 06:15 12/04/20 06:15 Lab Results 12/03/20 12/03/20 12/03/20 Range/Units 17:22 17:22 17:22 WBC 5.90 (4.8-10.8) K/uL RBC 4.38 (4.2-5.4) M/uL Hgb 13.3 (12.0-16.0) g/dL Hct 39.8 (37-47) % MCV 90.9 (80-100) fL MCH 30.4 (25-34) pg MCHC 33.4 (32-36) g/dL RDW Std Deviation 42.4 (36.4-46.3) fL RDW Coeff of Jarrod 12.8 (11.5-14.5) % Plt Count 215 (130-400) K/uL MPV 10.8 H (7.4-10.4) fL Immature Gran % (Auto) 0.2 % Neut % (Auto) 64.0 % Lymph % (Auto) 24.6 % [place] % (Auto) 9.7 % Eos % (Auto) 1.2 % Baso % (Auto) 0.3 % Neut # (Auto) 3.78 (1.4-6.5) K/uL Lymph # (Auto) 1.45 (1.2-3.4) K/uL [place] # (Auto) 0.57 (0.11-0.59) K/uL Eos # (Auto) 0.07 (0-0.5) K/uL Baso # (Auto) 0.02 (0-0.2) K/uL Immature Gran # (Auto) 0.01 (0.00-0.02) K/uL PT 10.4 (9.0-12.0) Seconds INR 1.0 (0.9-1.1) APTT 26.7 (21.0-31.0) Seconds PTT Ratio 1.0 D-Dimer (0-500) ug/L FEU Sodium 142 (136-145) mmol/L Potassium 3.8 (3.5-5.1) mmol/L Chloride 110 H (98-107) mmol/L Carbon Dioxide 27 (21-32) mmol/L Anion Gap 5.0 (3-11) BUN 21 H (7-18) mg/dl Creatinine 0.97 (0.6-1.2) mg/dl Est Cr Clr Drug Dosing Not Reportable Est GFR ( Amer) 65.3 Est GFR (Non-Af Amer) 56.3 BUN/Creatinine Ratio 21.9 H (10-20) Glucose 105 H (70-99) mg/dl Calcium 8.6 (8.5-10.1) mg/dl Total Bilirubin 0.4 (0.2-1) mg/dl AST 18 (15-37) U/L ALT 20 (12-78) U/L Alkaline Phosphatase 78 (45-117) U/L Troponin I < 0.015 (0-0.045) ng/ml NT-Pro-B Natriuret Pep 359 (0-1800) pg/ml Total Protein 6.9 (6.4-8.2) gm/dl Albumin 3.5 (3.4-5.0) gm/dl Globulin 3.4 (2.5-4.0) gm/dl Albumin/Globulin Ratio 1.0 (0.9-2) Lipase 240 (73-393) U/L COVID-19 Eval Order SARS-CoV-2 (PCR) (Negative) Influenza Type A (PCR) (Neg) Influenza Type B (PCR) (Neg) RSV (RT-PCR) (Neg) 12/03/20 12/03/20 12/03/20 Range/Units 17:22 17:22 20:57 WBC (4.8-10.8) K/uL RBC (4.2-5.4) M/uL Hgb (12.0-16.0) g/dL Hct (37-47) % MCV (80-100) fL MCH (25-34) pg MCHC (32-36) g/dL RDW Std Deviation (36.4-46.3) fL RDW Coeff of Jarrod (11.5-14.5) % Plt Count (130-400) K/uL MPV (7.4-10.4) fL Immature Gran % (Auto) % Neut % (Auto) % Lymph % (Auto) % [place] % (Auto) % Eos % (Auto) % Baso % (Auto) % Neut # (Auto) (1.4-6.5) K/uL Lymph # (Auto) (1.2-3.4) K/uL [place] # (Auto) (0.11-0.59) K/uL Eos # (Auto) (0-0.5) K/uL Baso # (Auto) (0-0.2) K/uL Immature Gran # (Auto) (0.00-0.02) K/uL PT (9.0-12.0) Seconds INR (0.9-1.1) APTT (21.0-31.0) Seconds PTT Ratio D-Dimer 670 H* (0-500) ug/L FEU Sodium (136-145) mmol/L Potassium (3.5-5.1) mmol/L Chloride (98-107) mmol/L Carbon Dioxide (21-32) mmol/L Anion Gap (3-11) BUN (7-18) mg/dl Creatinine (0.6-1.2) mg/dl Est Cr Clr Drug Dosing Est GFR ( Amer) Est GFR (Non-Af Amer) BUN/Creatinine Ratio (10-20) Glucose (70-99) mg/dl Calcium (8.5-10.1) mg/dl Total Bilirubin (0.2-1) mg/dl AST (15-37) U/L ALT (12-78) U/L Alkaline Phosphatase (45-117) U/L Troponin I (0-0.045) ng/ml NT-Pro-B Natriuret Pep Cancelled (0-1800) pg/ml Total Protein (6.4-8.2) gm/dl Albumin (3.4-5.0) gm/dl Globulin (2.5-4.0) gm/dl Albumin/Globulin Ratio (0.9-2) Lipase Cancelled (73-393) U/L COVID-19 Eval Order CovFluRsv at [facility] SARS-CoV-2 (PCR) (Negative) Influenza Type A (PCR) (Neg) Influenza Type B (PCR) (Neg) RSV (RT-PCR) (Neg) 12/03/20 Range/Units 20:57 WBC (4.8-10.8) K/uL RBC (4.2-5.4) M/uL Hgb (12.0-16.0) g/dL Hct (37-47) % MCV (80-100) fL MCH (25-34) pg MCHC (32-36) g/dL RDW Std Deviation (36.4-46.3) fL RDW Coeff of Jarrod (11.5-14.5) % Plt Count (130-400) K/uL MPV (7.4-10.4) fL Immature Gran % (Auto) % Neut % (Auto) % Lymph % (Auto) % [place] % (Auto) % Eos % (Auto) % Baso % (Auto) % Neut # (Auto) (1.4-6.5) K/uL Lymph # (Auto) (1.2-3.4) K/uL [place] # (Auto) (0.11-0.59) K/uL Eos # (Auto) (0-0.5) K/uL Baso # (Auto) (0-0.2) K/uL Immature Gran # (Auto) (0.00-0.02) K/uL PT (9.0-12.0) Seconds INR (0.9-1.1) APTT (21.0-31.0) Seconds PTT Ratio D-Dimer (0-500) ug/L FEU Sodium (136-145) mmol/L Potassium (3.5-5.1) mmol/L Chloride (98-107) mmol/L Carbon Dioxide (21-32) mmol/L Anion Gap (3-11) BUN (7-18) mg/dl Creatinine (0.6-1.2) mg/dl Est Cr Clr Drug Dosing Est GFR ( Amer) Est GFR (Non-Af Amer) BUN/Creatinine Ratio (10-20) Glucose (70-99) mg/dl Calcium (8.5-10.1) mg/dl Total Bilirubin (0.2-1) mg/dl AST (15-37) U/L ALT (12-78) U/L Alkaline Phosphatase (45-117) U/L Troponin I (0-0.045) ng/ml NT-Pro-B Natriuret Pep (0-1800) pg/ml Total Protein (6.4-8.2) gm/dl Albumin (3.4-5.0) gm/dl Globulin (2.5-4.0) gm/dl Albumin/Globulin Ratio (0.9-2) Lipase (73-393) U/L COVID-19 Eval Order SARS-CoV-2 (PCR) NEGATIVE (Negative) Influenza Type A (PCR) Negative (Neg) Influenza Type B (PCR) Negative (Neg) RSV (RT-PCR) Negative (Neg) Imaging Data Radiologist's Impression: Chest X-Ray 12/03/20 16:54 XR chest 1V portable HISTORY: 75 years-old Female Chest Pain acute atypical chest pain COMPARISON: Chest radiographs 08/29/2017 TECHNIQUE: Portable AP view of the chest FINDINGS: Cardiomediastinal and hilar silhouettes are within normal limits. Calcified plaque of the thoracic aorta. No pneumothorax, pleural effusion, airspace consolidation or overt pulmonary edema. Bones of the chest appear grossly intact. Cholecystectomy. IMPRESSION: No acute process. ACT 112: Negative or not required by law. The above report was generated using voice recognition software. It may contain grammatical, syntax or spelling errors. Electronically signed by: Roberto Russo M.D. 12/03/2020 5:17 PM Chest CTA 12/03/20 19:18 CT angio chest PE protocol CT DOSE: 237.36 mGy.cm HISTORY: 75 years-old Female with PE. Acute shortness of breath TECHNIQUE: Multiple CTA images of the chest were obtained after the intravenous administration of 118 ml Optiray. Coronal and sagittal MIPS were obtained from the axial data set and were submitted for review. All measurements were obtained according to NASCET criteria. A dose lowering technique was utilized adhering to the principles of ALARA. COMPARISON: Chest radiograph of same day FINDINGS: CTA: The heart is upper limits of normal in size. No pericardial effusion. Moderate coronary artery calcifications. No thoracic aortic aneurysm or dissection. Mild luminal narrowing at the origin of the left subclavian artery. Patent innominate and right subclavian arteries. The pulmonary arterial tree is opacified to the level of the segmental branches and demonstrates no filling defects to suggest thromboembolic disease. CT CHEST: No thyroid nodule. Prominent 9 mm subcarinal lymph node. No pathologically enlarged lymph nodes by CT size criteria. There is no pneumothorax, pleural effusion, airspace consolidation or overt pulmonary edema. Minimal dependent bibasilar atelectasis. There are no suspicious pulmonary nodules or masses. The central airways are patent. No pneumoperitoneum. No acute process of the imaged upper abdomen. Unremarkable soft tissues. No acute fracture. IMPRESSION: 1. No acute intrathoracic abnormality. 2. No pulmonary emboli. ACT 112: Negative or not required by law. The above report was generated using voice recognition software. It may contain grammatical, syntax or spelling errors. Electronically signed by: Roberto Russo M.D. 12/03/2020 8:08 PM ECG Data Attestation: I personally reviewed and interpreted this ECG as follows: Indication: + chest pain Rate (beats per minute): 72 Rhythm: + normal sinus ECG Intervals/blocks: + Normal QRS and + Normal QT ECG [place]: + Normal ECG ST segments: + T-wave inversions (V3, III) Blood Pressure Blood Pressure Findings: Elevated blood pressure Blood Pressure Disposition: Referred to patients primary care provider MDM Narrative This is a 75 yo female who presents with concern for persistent chest pressue and accompanying sharper pain today. Pt did see her cpas and PCP as an outpt. Pt does have hx of GERD and did recently take doxycycline however she takes a PPI daily and did use maalox in addition without any improvement. States no prior hx of increased sx with use of doxycycline. Given hx of CAD, concern for evolving unstable angina, given no improvement with GI meds here. Labs reassuring, cxr and CTA chest reassuring. Patient with elevated HEART score, ongoing pain despite treatment despite reassuring ekg and negative troponin after >8 hrs of pain, case discussed with hospitalist for additional evaluation and treatment. Discussed all results with patient, she verbalized understanding and was in agreement with the plan. An order was placed for continuous cardiac monitoring. The monitor shows a rate of 82 with _normal sinus_ rhythm. Impression & Plan Atypical chest pain, GERD (gastroesophageal reflux disease), Hypertension Discharge Plan Visit Data Chief Complaint: Chest Pain Stated Complaint: CHEST TIGHTNESS/BURNING, SOB, COV NEG ON 12/02 ED Provider: Sue Rocha Discharge Problem: Atypical chest pain, GERD (gastroesophageal reflux disease), Hypertension Patient Disposition: Admitted As Inpatient Discharge Instructions Interventions: ED Discharge Assessment Last Done: 12/04/20 01:40 Discharge Problem: GERD (gastroesophageal reflux disease) Qualifiers: Esophagitis presence: esophagitis presence not specified Qualified Code(s): K21.9 - Gastro-esophageal reflux disease without esophagitis Hypertension Qualifiers: Hypertension type: essential hypertension Qualified Code(s): I10 - Essential (primary) hypertension
[2020-12-03] MEDS ORDERED: SUCRALFATE 1 GM/10 ML UDC PO STA (18:17)
[2020-12-03] MEDS ORDERED: FAMOTIDINE 20MG/5ML IV PUSH IV STA (18:17)
[2020-12-03 18:23] LABS: D Dimer 670 ug/L FEU (0-500)
[2020-12-03 18:30] LABS: Lipase 240 U/L (73-393); NT Pro B Type Natriuretic Pept 359 pg/ml (0-1800)
[2020-12-03] MEDS ORDERED: OPTIRAY 320 125ml IV ONE (19:32)
--- NOTE | 2020-12-03 20:09 | CT Scan Report ---
CT angio chest PE protocol CT DOSE: 237.36 mGy.cm HISTORY: 75 years-old Female with PE. Acute shortness of breath TECHNIQUE: Multiple CTA images of the chest were obtained after the intravenous administration of 118 ml Optiray. Coronal and sagittal MIPS were obtained from the axial data set and were submitted for review. All measurements were obtained according to NASCET criteria. A dose lowering technique was u tilized adhering to the principles of ALARA. COMPARISON: Chest radiograph of same day FINDINGS: CTA: The heart is upper limits of normal in size. No pericardial effusion. Moderate coronary artery calcif ications. No thoracic aortic aneurysm or dissection. Mild luminal narrowing at the origin of the left subclavian artery. Patent innominate and right subclavian arteries. The pulmonary arterial tree is o pacified to the level of the segmental branches and demonstrates no filling defects to suggest thromb oembolic disease. CT CHEST: No thyroid nodule. Prominent 9 mm subcarinal lymph node. No pathologically enlarged lymph nodes by CT size criteria. There is no pneumothorax, pleural effusion, airspace consolidation or overt pulmonary edema. Minimal dependent bibasilar atelectasis. There are no suspicious pulmonary nodules or masses. The central airways are patent. No pneumoperitoneum. No acute process of the imaged upper abdomen. Unremarkable soft tissues. No acut e fracture. IMPRESSION: 1. No acute intrathoracic abnormality. 2. No pulmonary emboli. ACT 112: Negative or not required by law. The above report was generated using voice recognition software. It may contain grammatical, syntax o r spelling errors. Electronically signed by: Roberto Russo M.D. 12/03/2020 8:08 PM
[2020-12-03] MEDS ORDERED: NITROGLYCERIN 2% OINTMENT 30GM TUBE EXT STA (20:39)
[2020-12-03 21:47] LABS: Influenza A virus by PCR Negative (Neg); Influenza B virus by PCR Negative (Neg); RSV by PCR Negative (Neg); SARS CoV2 RNA(COVID-19) InHosp NEGATIVE (Negative)
--- NOTE | 2020-12-04 00:44 | History & Physical Report ---
Date of Service December 04, 2020 Assessment & Plan Admission and Anticipated Discharge Date Admission Date: 83 y/o w/ pMHx. of GERD, HLD, HTN, Hypothyroidism, CAD s/p LAD stent in 2017; here for progressively worsening chest pain/pressure that radiates to her back exacerbated with breathing will want to rule out ACS although pericarditis, reflux and pleuritis (from Hydralazine?) are potential alternative diagnosis admit for obs. med/surg - tele Chest pain EKG with slight ST changes CTA - chest - no PE, no pericardial effusion, no acute intrathoracic abnormality [heart size top end of normal and 9mm subcarinal lymph node] CXR - no acute process troponin initially negative Heart score 6 moderate - trend troponin - ECHO ordered CAD s/p LAD stent - continue ASA, Ezetimibe Reflux, worsening - continue with home PPI Hypothyroidism - alternates 75/50 mcg - ordered 50 mcg HTN - continue Hydralazine for now - continue Metoprolol, Isosorbide Mononitrate DVT: Lovenox Code: full Diet: NPO History of Present Illness Chief Complaint: chest pain Primary Care Provider: DO Isadora Logan is here for concern of chest pain. Her symptoms started on Monday with symptoms that felt like "tightness", the symptoms occur for 1-2 breaths and are worse with deep breaths. She is coming in today because the pain/tightness has become more frequent and, "wouldn't leave". She has not had anything like this in the past. Her symptoms improve with sitting down. The symptoms are not worse with exercise or activity and is able to walk up stairs without difficulty. The pain has radiated to her shoulder blades and upper back. She has a past LAD stent placed in 2017 with symptoms at that time that were neck discomfort/thirst while biking. She has a history of reflux and has been having increased symptoms over the last 4 days which include a burning taste in her throat and burping. She has had palpitations and they are chronic but have increased over the last 2 days. She started Doxycycline on Monday but has taken this previously without any difficulty. Social Hx.: lives alone, daughter is a nurse Allergies Allergy/AdvReac Type Severity Reaction Status Date / Time alcohol Allergy Unknown Verified 12/03/20 18:39 [From Mastisol Adhesive] atorvastatin [From Lipitor] Allergy Unknown Verified 12/03/20 18:39 citalopram [From Celexa] Allergy Unknown Verified 12/03/20 18:39 fexofenadine Allergy Unknown Verified 12/03/20 18:39 [From Rebecca-D 12 Hour] gum mastic Allergy Unknown Verified 12/03/20 18:39 [From Mastisol Adhesive] ketorolac [From Toradol] Allergy Unknown Verified 12/03/20 18:39 methyl salicylate Allergy Unknown Verified 12/03/20 18:39 [From Mastisol Adhesive] pseudoephedrine Allergy Unknown Verified 12/03/20 18:39 [From Rebecca-D 12 Hour] simvastatin [From Zocor] Allergy Unknown Verified 12/03/20 18:39 storax Allergy Unknown Verified 12/03/20 18:39 [From Mastisol Adhesive] clarithromycin AdvReac Intermediate MOUTH SORES Verified 12/03/20 18:39 ENVIRONMENTAL Allergy Intermediate YEAST/MOLD/DUST-SNEEZING, Uncoded 12/03/20 18:39 CONGESTION Home Medications Medication Instructions Recorded Confirmed Type Restasis 0.4 drp OPHTHALMIC (EYE) DAILY 01/10/19 12/03/20 History aspirin [Aspirin Low Dose] 81 mg PO DAILY 01/10/19 12/03/20 History ezetimibe 10 mg PO DAILY 01/10/19 12/03/20 History hydralazine 10 mg PO TID 01/10/19 12/03/20 History levothyroxine 50 mcg PO QAM 01/10/19 12/03/20 History levothyroxine 75 mcg PO QAM 01/10/19 12/03/20 History metoprolol succinate 12.5 mg PO DAILY 01/10/19 12/03/20 History vitamin E 100 unit PO DAILY 01/10/19 12/03/20 History pantoprazole 40 mg tablet,delayed 40 mg PO BID tab 06/23/20 12/03/20 History release multivitamin with minerals-folic 1 tab PO DAILY tab 08/03/20 12/03/20 History acid 200 mcg chewable tablet isosorbide mononitrate 30 mg 30 mg PO DAILY 10/05/20 12/03/20 History tablet,extended release 24 hr Past Med/Surg History Medical History Allergic rhinitis Chest pain GERD (gastroesophageal reflux disease) Hyperlipidemia Hypertension Hypothyroidism Peptic ulcer disease Plantar fasciitis of right foot Presence of drug coated stent in LAD coronary artery Surgical History H/O colonoscopy History of heart artery stent S/P breast lumpectomy S/P RIDGE-BSO S/P tooth extraction Family History Father Cancer Diabetes Stroke Mother Coronary heart disease Hypertension Heart disease Grandmother Coronary heart disease Sister Breast cancer, Onset Age: 66 Brother Hearing loss Other No family history of adverse response to anesthesia No family history of bleeding disorder Denies family history of Ovarian cancer Colorectal cancer Social History Smoking Status: Never smoker Hx Alcohol Use: Yes Hx Substance Use: No Preferred Language: Upper Sorbian Communication Ability: Effective Beliefs That Will Affect Care: None Current Living Situation: Alone Current Living Situation Comment: 7 steps into apartment building Feels Safe at Home: Yes Assistive Devices: None Review of Systems Review of Systems: Constitutional: denies fevers, nausea, diaphoresis, night sweats, weight change admits chills, fatigue Head: denies trauma admits chronic improving right vision changes Neurologic: denies slurring speech, focal weakness, neck stiffness ENT: denies rhinorrhea, stuffiness, sore throat Cardiac: admits chest pain, palpitations Pulm.: admits chronic unchanged cough GI: denies diarrhea, abdominal pain admits indigestion, constipation (chronic) : denies pain, frequency admits chronic urgency Physical Exam Physical Exam: Constitutional: WD/WN, vitals as above Eyes: PERRL, conjunctivae normal, anicteric sclerae ENMT: external ear and nose normal, oropharynx normal Neck: normal visual inspection Respiratory: normal respiratory effort, lungs clear to auscultation - pain with deep breath Cardiovascular: RRR, no murmur, no edema Vessels: no carotid bruit Gastrointestinal (Abdomen): normal bowel sounds, soft, nontender, no hepatosplenomegaly Skin: no rashes, warm and dry Neurologic: no focal motor deficits Psychiatric: Orientation: alert Eye Contact: good eye contact Speech: no pressured speech Affect: euthymic affect Results & Data Results & Data ([facility]) Vital Signs (Past 12 Hours) Vital Signs Temp Pulse Pulse Resp BP BP Pulse Ox 12/04/20 00:00 62 19 136/88 95 12/03/20 23:30 62 22 160/78 H 96 12/03/20 23:00 61 20 166/74 H 94 12/03/20 22:30 61 19 151/76 H 95 12/03/20 22:00 67 19 160/95 H 96 12/03/20 21:36 69 18 179/94 H 97 12/03/20 21:35 68 17 97 12/03/20 20:31 72 14 171/81 H 97 12/03/20 20:22 62 20 128/79 97 12/03/20 19:40 69 18 187/95 H 97 12/03/20 19:30 62 17 173/87 H 95 12/03/20 19:00 68 18 164/77 H 95 12/03/20 18:00 68 19 95 12/03/20 17:52 71 70 18 170/102 H 97 12/03/20 17:48 72 20 96 12/03/20 17:46 72 17 174/102 H 97 12/03/20 16:51 36.8 C 72 18 145/79 H 96 CBC Results Results Complete Blood Count Results: RBC 4.34 M/uL (4.2-5.4) 12/04/20 WBC 6.32 K/uL (4.8-10.8) 12/04/20 Hgb 13.4 g/dL (12.0-16.0) 12/04/20 Hct 39.0 % (37-47) 12/04/20 Plt Count 207 K/uL (130-400) 12/04/20 Chemistry (BMP) Results BMP Results: Sodium 140 mmol/L (136-145) 12/04/20 Potassium 3.8 mmol/L (3.5-5.1) 12/04/20 Chloride 109 mmol/L (98-107) H 12/04/20 BUN 19 mg/dl (7-18) H 12/04/20 Creatinine 0.80 mg/dl (0.6-1.2) 12/04/20 Glucose 81 mg/dl (70-99) 12/04/20 Code Status & VTE Plan VTE Prophylaxis Plan VTE Prophylaxis will be ordered: Yes Supervising Physician Co-Signing Physician Notes Attending addendum: I have physically seen this patient, have supervised the medical residents activities, and agree with the H&P unless as otherwise noted. Assessment and Plan: Chest pain/CAD/LAD stent history- The patient will be admitted to telemetry for serial cardiac enzymes, serial EKG's, cardiac rhythm monitoring and a 2-D echocardiogram with Dopplers. Continue aspirin, Zetia, hydralazine, isosorbide mononitrate, and metoprolol succinate. Hypothyroidism- Continue alternating doses of levothyroxine GERD- Continue pantoprazole Remaining orders and notations as noted Resident Activity Tracking Resident Involvement: Resident Care Provided Care Provided: Adult [facility]
[2020-12-04] MEDS ORDERED: POLYETHYLENE (MIRALAX) 17 GM PACK PO PRN (01:53)
[2020-12-04] MEDS ORDERED: ACETAMINOPHEN 325 MG TAB PO PRN (01:53)
[2020-12-04] MEDS: hydrALAZINE 10 MG TAB PO SCH ×3 (04:15→14:20)
[2020-12-04] MEDS ORDERED: LEVOTHYROXINE SODIUM 50 MCG TABLET PO SCH (06:30)
[2020-12-04 06:53] LABS: Basophils # (auto) 0.03 K/uL (0-0.2); Basophils % (auto) 0.5 %; Eosinophils # (auto) 0.08 K/uL (0-0.5); Eosinophils % (auto) 1.3 %; Hemoglobin 13.4 g/dL (12.0-16.0); Immature Granulocytes # (auto) 0.01 K/uL (0.00-0.02); Immature Granulocytes % (auto) 0.2 %; Lymphocytes # (auto) 1.99 K/uL (1.2-3.4); Lymphocytes % (auto) 31.5 %; Mean Corpuscular Hemoglobin 30.9 pg (25-34); Mean Corpuscular Hgb Conc 34.4 g/dL (32-36); Mean Corpuscular Volume 89.9 fL (80-100); Monocytes # (auto) 0.56 K/uL (0.11-0.59); Monocytes % (auto) 8.9 %; Neutrophils # (auto) 3.65 K/uL (1.4-6.5); Neutrophils % (auto) 57.6 %; Platelet Count 207 K/uL (130-400); RDW Coefficient of Variation 12.9 % (11.5-14.5); RDW Standard Deviation 42.7 fL (36.4-46.3); Red Blood Count 4.34 M/uL (4.2-5.4); White Blood Count 6.32 K/uL (4.8-10.8)
[2020-12-04] MEDS: RESTASIS~ORDER AWAITING ACTION SCH ×2 (07:15→15:04)
[2020-12-04 07:35] LABS: BUN Creatinine Ratio 23.4 (10-20); Calcium 8.9 mg/dl (8.5-10.1); Creatinine Clr Calc Pharmacy 48.9 ml/min; Est GFR (African American) 82.4; Est GFR (Non-African American) 71.1; Potassium 3.8 mmol/L (3.5-5.1)
[2020-12-04] MEDS ORDERED: ISOSORBIDE MONO EXTENDED REL 30 MG TABCR PO SCH (09:00)
[2020-12-04] MEDS ORDERED: METOPROLOL SUCC 50MG EXT REL TAB PO SCH (09:00)
[2020-12-04] MEDS ORDERED: ENOXAPARIN INJ 40 MG/0.4 ML SYR SQ SCH (09:00)
[2020-12-04] MEDS ORDERED: PANTOprazole 40 MG TAB PO SCH (09:00)
[2020-12-04] MEDS ORDERED: EZETIMIBE 10 MG TABLET PO SCH (09:00)
[2020-12-04] MEDS ORDERED: ASPIRIN 81 MG ECTAB PO SCH (09:00)
--- NOTE | 2020-12-04 17:19 | XCELERA ---
[id number] \\[id number]___[id number]
--- NOTE | 2020-12-04 17:46 | XCELERA ---
[id number] \\[id number]___[id number]
--- NOTE | 2020-12-04 18:30 | Discharge Summary ---
Date of Service December 04, 2020 Admission HPI Per Admitting Provider Isadora Ervin is here for concern of chest pain. Her symptoms started on Monday with symptoms that felt like "tightness", the symptoms occur for 1-2 breaths and are worse with deep breaths. She is coming in today because the pain/tightness has become more frequent and, "wouldn't leave". She has not had anything like this in the past. Her symptoms improve with sitting down. The symptoms are not worse with exercise or activity and is able to walk up stairs without difficulty. The pain has radiated to her shoulder blades and upper back. She has a past LAD stent placed in 2017 with symptoms at that time that were neck discomfort/thirst while biking. She has a history of reflux and has been having increased symptoms over the last 4 days which include a burning taste in her throat and burping. She has had palpitations and they are chronic but have increased over the last 2 days. She started Doxycycline on Monday but has taken this previously without any difficulty. Social Hx.: lives alone, daughter is a nurse Admission Exam Per Admitting Provider Constitutional: WD/WN, vitals as above Eyes: PERRL, conjunctivae normal, anicteric sclerae ENMT: external ear and nose normal, oropharynx normal Neck: normal visual inspection Respiratory: normal respiratory effort, lungs clear to auscultation - pain with deep breath Cardiovascular: RRR, no murmur, no edema Vessels: no carotid bruit Gastrointestinal (Abdomen): normal bowel sounds, soft, nontender, no hepatosplenomegaly Skin: no rashes, warm and dry Neurologic: no focal motor deficits Psychiatric: Orientation: alert Eye Contact: good eye contact Speech: no pressured speech Affect: euthymic affect Principal Diagnosis Chest Pain Discharge Exam General: A&Ox3. NAD. Cooperative. HEENT: Atraumatic, normocephalic. Pulm: CTAB A&P. -wheezes, -rales, -rhonchi. Symmetrical chest rise. No increase work of breathing. No respiratory distress. Cardiac: RRR, -mrg. Radial pulses intact and symmetrical. Chest: increased sharp pain on palpation of bilateral sternocostal joints Abdominal: soft, mild TTP in epigastric region, non-distended, BS x 4 Discharge Data Allergies Allergy/AdvReac Type Severity Reaction Status Date / Time alcohol Allergy Unknown Verified 12/03/20 18:39 [From Mastisol Adhesive] atorvastatin [From Lipitor] Allergy Unknown Verified 12/03/20 18:39 citalopram [From Celexa] Allergy Unknown Verified 12/03/20 18:39 fexofenadine Allergy Unknown Verified 12/03/20 18:39 [From Rebecca-D 12 Hour] gum mastic Allergy Unknown Verified 12/03/20 18:39 [From Mastisol Adhesive] ketorolac [From Toradol] Allergy Unknown Verified 12/03/20 18:39 methyl salicylate Allergy Unknown Verified 12/03/20 18:39 [From Mastisol Adhesive] pseudoephedrine Allergy Unknown Verified 12/03/20 18:39 [From Rebecca-D 12 Hour] simvastatin [From Zocor] Allergy Unknown Verified 12/03/20 18:39 storax Allergy Unknown Verified 12/03/20 18:39 [From Mastisol Adhesive] clarithromycin AdvReac Intermediate MOUTH SORES Verified 12/03/20 18:39 ENVIRONMENTAL Allergy Intermediate YEAST/MOLD/DUST-SNEEZING, Uncoded 12/03/20 18:39 CONGESTION Consultations 12/03/20 22:50 ED Decision to Admit Stat Ordered Studies 12/03/20 19:18 CT angio chest PE protocol Stat Hospital Course (1) Atypical chest pain: 83 y/o w/ pMHx. of GERD, HLD, HTN, Hypothyroidism, CAD s/p LAD stent in 2017; here for progressively worsening chest pain/pressure that radiates to her back exacerbated with breathing. ACS r/o done and unremarkable. Likely GERD vs costochondritis vs Intercostal Muscle Spasms. Chest pain/GERD EKG without ST/T changes, CTA-chest without PE or aortic dissection, Troponin x2 negative, Stress Echo negative for ischemia - unlikely to be angina. Given h/o GERD, suspect chest pain due to GERD. Also costochondritis +/- intercostal muscle spasms may be contributing. - recommended continuing Protonix 40mg PO BID - counseled on dietary modifications for GERD - f/u with PCP for further eval/management Echodensity on ventricular side of anterior mitral leaflet/annulus - may represent chordal structure, unlikely to be vegetation given lack of history or symptoms of Endocarditis - blood cultures x2 taken before discharge, f/u with PCP regarding results - f/u with [facility] Cardiology as outpatient, may need JONATHAN CAD s/p LAD stent - continue ASA, Ezetimibe Hypothyroidism - alternates 75/50 mcg - ordered 50 mcg HTN - continue Hydralazine for now - continue Metoprolol, Isosorbide Mononitrate Total Time Total Time Spent Total Time Spent (In Minutes): <30 Total Time Includes: Examination of the Patient, Discharge Planning and Communication With Other Providers Discharge Plan Discharge Items Patient Disposition: Home - Self-Care Reason For Visit: CHEST PAIN Discharge Diagnosis: Chest Pain Activity: Per Instructions section Non-emergency contact: Primary Care Provider and Janitor And Cleaner Call non-emergency contact if: you have any medication questions and your symptoms worsen Follow-up/Referrals: Kenrick Perez MD [Physician] - (1 week, please) Gal Meier DO [Primary Care Provider] - Diet: Heart Healthy Addtl Attending Provider Instructions: You were admitted to [facility] on 12/04/2020 for chest pain. An EKG (heart monitoring test) was done which was normal, and you had two sets of normal Troponin levels (blood markers for heart damage). You also had both a resting and exercise heart ultrasound done; they did not show signs of heart attack, so it is very unlikely that your pain is coming from your heart. However, they did show that there is a small mass attached to one of the inner patrick of the heart - it does not appear to be an issue, but we would like for you to follow up with Cardiology after discharge for further evaluation of this. Given the extensive heart work-up that came back completely normal, in addition to the fact that your pain worsens with breathing, radiates to your ribs, and increases when we press on your chest bones, it is most likely that your chest pain is not from your heart. It is more likely that the pain is either due to chronic heartburn or from intercostal muscle spasms (rib muscle strain). You will be discharged in good, stable condition on 12/04/2020. We recommend that you begin taking your heartburn medication (Protonix) twice daily: once in the morning and once in the evening. We also recommend that you follow up with your PCP regarding the likely rib muscle spasms - you may benefit from going to physical therapy. You should continue to take all of your other medications as prescribed. We hope you feel better. It was a pleasure to help provide your care while you were hospitalized. Pending Studies at Discharge: No Stand-Alone Forms: My [facility], Smoking Cessation Medications and DC Order Prescriptions: Continued isosorbide mononitrate 30 mg tablet extended release 24 hr 30 mg PO DAILY RF: 0 Adult Multivitamin Gummies 200 mcg tablet,chewable 1 tab PO DAILY RF: 0 levothyroxine 75 mcg tablet 75 mcg PO QAM RF: 0 levothyroxine 50 mcg tablet 50 mcg PO QAM RF: 0 hydralazine 10 mg tablet 10 mg PO TID RF: 0 metoprolol succinate 50 mg tablet extended release 24 hr 12.5 mg PO DAILY RF: 0 vitamin E 100 unit Capsule 100 unit PO DAILY RF: 0 aspirin [Aspirin Low Dose] 81 mg Tablet,Delayed Release (Dr/Ec) 81 mg PO DAILY RF: 0 ezetimibe 10 mg tablet 10 mg PO DAILY RF: 0 Restasis 0.05 % dropperette 0.4 drp ophthalmic (eye) DAILY RF: 0 pantoprazole 40 mg tablet,delayed release (DR/EC) 40 mg PO BID RF: 0 Discharge Orders: Discharge Order (Routine); Ordered 12/04/20 Ordered By: Real Saleem Admission Data Admit Date/Time: 12/03/20 23:48 Attending Provider: Kayode Courtney Admit Provider: Russel Oneal Primary Care Provider: Gal Meier Other Providers: Len Gomez Other Interventions: Discharge Summary Assessment (RN) Last Done: 12/04/20 18:21 Supervising Physician Co-Signing Physician Notes I personally examined the patient and verified all delacruz points of history and exam, discussed case, and agree with decision making with Dr Saleem Feeling better now. Had upper abdominal lower chest pressure and fullness, degree of feeling like she was catching her breath. Symptoms on again off again sometimes lasting a few seconds to a few minutes. No symptoms at all today. Vitals noted, in general she is awake and alert pleasant no distress. HEENT normocephalic atraumatic mucous membranes moist. Breathing unlabored no accessory muscle use good effort. Abdomen is soft but she does have epigastric tenderness to palpation no guarding no rebound no rigidity. Chest painEKG/troponins negativeno MS, stress test reassuring and symptoms fairly atypicalinconsistent with unstable angina. More than likely upper GI related, she notes some changes in her diet recently that could be contributing to reflux. Rather than escalating/adding medications, we discussed diet measures. Appears stable for home. Odd structure noted on echonothing about her clinical picture appears consistent with endocarditis. To be safe/thorough we will check blood cultures, and in discussion with cardiology reading the echooutpatient cardiology follow- up with considerations for JONATHAN, but given that this is an incidental finding fro m which she appears to be asymptomatic, there appears to be no urgency to have to prolong her hospitalization to do so. Stable for home, otherwise as above. Resident Activity Tracking Resident Involvement: Resident Care Provided Care Provided: Adult Hospital Medicine
--- NOTE | 2020-12-04 18:56 | Billing Data ---
Date of Service December 04, 2020 Coding Level of Care Code 91745 OBS Care - Discharge
--- NOTE | 2020-12-04 21:29 | Billing Data ---
Date of Service December 04, 2020 Coding Level of Care Code 99049 OBS Care - Level 3
--- NOTE | 2020-12-04 23:52 | Electrocardiogram Report ---
Test Reason : Blood Pressure : / mmHG Vent. Rate : 072 BPM Atrial Rate : 072 BPM P-R Int : 154 ms QRS Dur : 088 ms QT Int : 402 ms P-R-T Axes : 059 028 040 degrees QTc Int : 440 ms Normal sinus rhythm When compared with ECG of 29-DEC-2016 17:55, Vent. rate has increased BY 31 BPM T wave inversion less evident in Anterior leads Confirmed by Kenrick Perez ([id number]) on 12/04/2020 11:52:30 PM Referred By: REFERRED SELF Confirmed By:Kenrick Perez
== END 2020-12-04 19:06 | disposition home or self-care (01) ==
LOC: 2N 16:41 → ED 16:41 → SUATTDRO 23:48 → 2N 12-04 01:40

== ENCOUNTER 2022-04-17 20:37 | Inpatient (IN) ==
[2022-04-17] MEDS ORDERED: SODIUM CHLORIDE 0.9% 1000ML 1,000 ML IV ONE (21:00)
[2022-04-17] MEDS ORDERED: hydrALAZINE HCL 25 MG TAB PO STA (21:11)
[2022-04-17] MEDS ORDERED: GI COCKTAIL ED USE PO ONE (21:12)
[2022-04-17] MEDS ORDERED: ONDANSETRON INJ 2 MG/ML 2 ML VIAL IV STA (21:12)
--- NOTE | 2022-04-17 21:16 | Emergency Department Note ---
Impression & Plan THOMAS (acute kidney injury), Dehydration, Vomiting ED Provider Note NAME: OMID GIBSON AGE: 76 SEX: F : 1945 ARRIVES VIA: Walk-In INFORMANT: Patient ED PROVIDER(S): Kayode Lau DO CHIEF COMPLAINT: nausea HPI: Patient is a 76-year-old female who presents the ER with a past medical history of mitral regurg, CAD, hypertension who presents the ER for nausea. She notes this has been going off and on for the past 6 months. She had an endoscopy by Dr. Lee about a month and a half ago as an outpatient which showed a gastric ulcer. She notes that recently over the past 24 to 48 hours nausea has gotten worse. She denies any belly pain but notes when the nausea gets significantly worse she does get some mild discomfort. No dysuria, urgency, or frequency but admits to hematuria which has been present for the past 7 days. No headache or change in vision. No chest pain or shortness of breath. No other exacerbating or remitting factors. She notes that she missed 2 doses of her hydralazine today. ROS: See above HPI for pertinent positives & negatives. A total of 10 systems reviewed and were otherwise negative. PAST MEDICAL HISTORY:See Below PAST SURGICAL HISTORY:See Below FAMILY HISTORY:See Below SOCIAL HISTORY:See Below HOME MEDICATIONS:See Below ALLERGIES:See Below VITALS:See Below PHYSICAL EXAMINATION: GENERAL: Sitting up in bed, alert, well appearing, well nourished, no distress, non-toxic EYE EXAM: normal conjunctiva. PERRL and EOM's grossly intact. OROPHARYNX: no exudate, no erythema, lips, buccal mucosa, and tongue normal and mucous membranes are moist NECK: supple, no nuchal rigidity, no adenopathy, non-tender LUNGS: Clear to auscultation. Normal chest wall mechanics HEART: no murmurs, S1 normal and S2 normal ABDOMEN: abdomen soft, non-tender, normo-active bowel sounds, no masses, no rebound or guarding. UPPER EXTREMITIES: upper extremities are grossly normal. LOWER EXTREMITIES: No pitting edema. NEURO EXAM: Normal sensorium, cranial nerves II-XII grossly intact, normal speech, no gross weakness of arms, no gross weakness of legs. MEDICAL DECISION MAKING: Patient is a 76-year-old female who presents the ER for nausea and vomiting. She notes that she cannot drink liquids anymore as it upsets her stomach or eat. IV was established blood work was obtained. POC shows a hemoglobin of 10. BMP with a creatinine at 2.5 up from baseline of 1. LFTs bilirubin and lipase is un remarkable. UA was contaminated but no white cells suggest infection. COVID was negative. CT abdomen pelvis was unremarkable. CT head was negative. CBC delayed for nearly 3 hours and still not back consequently admission was called and discussed with Dr. Greenberg for further evaluation. Patient was given IV fluids and Zofran. Updated bedside admitted for further work-up. Triage Nursing notes reviewed. Limited review of prior medical records performed Vital Signs: reviewed and remarkable for HTN Differential diagnosis: Differential diagnoses includes but is not limited to gastritis, peptic ulcer disease, GERD, gallbladder disease, pancreatitis, small bowel obstruction, acute coronary syndrome, pericarditis, ischemic bowel, irritable bowel disease, irritable bowel syndrome, appendicitis, diverticulitis, malignancy, hernia, urinary tract infection, torsion, /ectopic (if female), perforation, trauma, infectious. ER treatment provided: See below Diagnostics interpreted by me: ECG: none Cardiac Monitoring: An order was placed for continuous cardiac monitoring. The monitor shows a rate of 70 with sinus rhythm. Laboratory studies: As stated above and show below. Imaging studies: CT HEAD: Mild periventricular white matter low density consistent with chronic small vessel disease and/or senescent changes, unchanged. There is no evidence of acute large vessel infarct or intracranial hemorrhage. The paranasal sinuses and mastoid air cells are normal. No skull fracture or scalp hematoma is seen. CT ABDOMEN & PELVIS Without Contrast: The kidneys are within normal limits. There is a 1.5 cm simple cyst on the right. No hydronephrosis or ureterolithiasis is seen. The appendix is not visible. Bowel loops are nondilated. There is a line of shin from previous partial sigmoid colon resection. No pneumoperitoneum, free fluid, or acute inflammatory changes are seen involving the bowel. The uterus has been removed. No free fluid is seen in the pelvis. Previous cholecystectomy. No biliary duct dilation or choledocholithiasis is seen. Mild to moderate degenerative changes throughout the thoracic spine. No acute fracture or subluxation is seen. Consultation(s): Discussed with Dr. Radha Greenberg for further evaluation Procedures: none Critical Care: None Past Med/Surg History Medical History Allergic rhinitis CAD (coronary artery disease) Chest pain GERD (gastroesophageal reflux disease) Hyperlipidemia Hypertension Hypothyroidism Peptic ulcer disease Plantar fasciitis of right foot Presence of drug coated stent in LAD coronary artery Surgical History H/O colonoscopy History of heart artery stent S/P breast lumpectomy S/P RIDGE-BSO S/P tooth extraction Family History Father Cancer Diabetes Stroke Mother Coronary heart disease Hypertension Heart disease Grandmother Coronary heart disease Sister Breast cancer, Onset Age: 66 Brother Hearing loss Other No family history of adverse response to anesthesia No family history of bleeding disorder Denies family history of Ovarian cancer Colorectal cancer Social History Smoking Status: Never smoker Hx Alcohol Use: Yes Hx Substance Use: No Preferred Language: Maltese Communication Ability: Effective Slitter Processed Film Required: No Beliefs That Will Affect Care: None Current Living Situation: Alone Current Living Situation Comment: 7 steps into apartment building Feels Safe at Home: Yes Assistive Devices: None Allergies Allergies Allergy/AdvReac Type Severity Reaction Status Date / Time alcohol Allergy Unknown Verified 04/17/22 21:57 [From Mastisol Adhesive] atorvastatin [From Lipitor] Allergy Unknown Verified 04/17/22 21:57 citalopram [From Celexa] Allergy Unknown Verified 04/17/22 21:57 fexofenadine Allergy Unknown Verified 04/17/22 21:57 [From Rebecca-D 12 Hour] gum mastic Allergy Unknown Verified 04/17/22 21:57 [From Mastisol Adhesive] ketorolac [From Toradol] Allergy Unknown Verified 04/17/22 21:57 methyl salicylate Allergy Unknown Verified 04/17/22 21:57 [From Mastisol Adhesive] pseudoephedrine Allergy Unknown Verified 04/17/22 21:57 [From Rebecca-D 12 Hour] simvastatin [From Zocor] Allergy Unknown Verified 04/17/22 21:57 storax Allergy Unknown Verified 04/17/22 21:57 [From Mastisol Adhesive] clarithromycin AdvReac Intermediate MOUTH SORES Verified 04/17/22 21:57 ENVIRONMENTAL Allergy Intermediate YEAST/MOLD/DUST-SNEEZING, Uncoded 04/17/22 21:57 CONGESTION Biaxin TABS Allergy Unknown Uncoded 04/17/22 21:57 Home Meds Home Medications Medication Instructions Recorded Confirmed aspirin 81 mg tablet,delayed 81 mg PO DAILY 01/10/19 04/17/22 release (Joaquin Low Dose Aspirin) levothyroxine 50 mcg tablet 50 mcg PO QAM 01/10/19 04/17/22 levothyroxine 75 mcg tablet 75 mcg PO QAM 01/10/19 04/17/22 cholecalciferol (vitamin D3) 25 150 mcg PO DAILY 12/11/20 04/17/22 mcg/drop (1,000 unit/drop) oral drops cyclosporine 0.05 % eye drops 1 drp ophthalmic (eye) Q12H 06/18/21 04/17/22 (Restasis MultiDose) pantoprazole 40 mg tablet,delayed 40 mg PO QAM 12/15/21 04/17/22 release Allergy Shot 1 dose INJ . EVERY 2 WEEKS 04/17/22 04/17/22 ezetimibe 10 mg tablet 10 mg PO QPM 04/17/22 04/17/22 isosorbide mononitrate 30 mg 30 mg PO QAM 04/17/22 04/17/22 tablet,extended release 24 hr metoprolol succinate 50 mg 25 mg PO QAM 04/17/22 04/17/22 tablet,extended release 24 hr [id number]-Ca carb-vit K 1 tab PO QAM 04/17/22 04/17/22 18 mg iron-400 mcg-500 mg tablet vitamin E 268 mg (400 unit) capsule 268 mg PO QAM 04/17/22 04/17/22 Previous Rx's Medication Instructions Recorded azelastine 137 mcg (0.1 %) nasal 2 spray intranasal DAILY #30 mL 06/18/21 spray aerosol hydralazine 25 mg tablet 25 mg PO TID #270 tabs 09/14/21 Results & Data (ED) Vital Signs Vital Signs - 24 hr 04/17/22 20:39 04/17/22 21:19 04/17/22 22:28 Temperature 36.7 C Temperature Source Temporal Artery Scan Pulse Rate 76 76 Pulse Rate [Finger] 66 Pulse Rate from SpO2 Sensor 76 Respiratory Rate 16 16 25 H Respiratory Effort / Characteristics Non-Labored Spontaneous Non-Labored Spontaneous Respiratory Depth Normal Normal Respiratory Pattern Regular Regular Blood Pressure 205/92 H 152/86 H Blood Pressure [Left Arm] 177/88 H Blood Pressure Mean 129 108 Blood Pressure Mean [Left Arm] 117 Blood Pressure Position Sitting Blood Pressure Position [Left Arm] Semi-fowlers Pulse Oximetry 94 97 96 Oxygen Delivery Method Room Air Room Air Room Air Sepsis Recent Fever Within 48 Hours No Sepsis New/Unexplained Change in Mental Status No Sepsis Action Taken by Nursing No Action Required 04/17/22 22:30 Temperature Temperature Source Pulse Rate 74 Pulse Rate [Finger] Pulse Rate from SpO2 Sensor 74 Respiratory Rate 21 Respiratory Effort / Characteristics Respiratory Depth Respiratory Pattern Blood Pressure 163/65 H Blood Pressure [Left Arm] Blood Pressure Mean 97 Blood Pressure Mean [Left Arm] Blood Pressure Position Blood Pressure Position [Left Arm] Pulse Oximetry 95 Oxygen Delivery Method Room Air Sepsis Recent Fever Within 48 Hours Sepsis New/Unexplained Change in Mental Status Sepsis Action Taken by Nursing Laboratory Data Result diagrams: 04/17/22 21:12 04/17/22 21:12 Lab Results 04/17/22 04/17/22 04/17/22 Range/Units 21:10 21:12 21:37 POC Hgb 10.2 L (12.0-16.0) g/dl POC Hct 30 L (37-47) % POC Sodium 139 (135-144) mmol/L Sodium 136 (136-145) mmol/L POC Potassium 3.5 (3.3-5.0) mmol/L Potassium 3.6 (3.5-5.1) mmol/L POC Chloride 105 (101-112) mmol/L Chloride 105 (98-107) mmol/L Carbon Dioxide 22 (21-32) mmol/L POC Total CO2 22 L (24-31) mmol/L Anion Gap 9 (3-11) POC Anion Gap 17.0 (16-25) mmol/L POC BUN 24 H (7-18) mg/dl BUN 25 H (6-23) mg/dl Creatinine 2.54 H (0.6-1.2) mg/dl POC Creatinine 2.9 H (0.6-1.3) mg/dl Est Cr Clr Drug Dosing 14.2 ml/min Est GFR ( Amer) 20.2 ml/min Est GFR (Non-Af Amer) 17.5 ml/min BUN/Creatinine Ratio 9.8 L (10-20) Glucose 88 (70-99(Fasting)) mg/dl POC Glucose (other) 93 (70-99) mg/dl Calcium 8.9 (8.5-10.1) mg/dl POC Ioniz Calcium Ralph 1.17 (1.12-1.32) mmol/l Total Bilirubin 0.9 (0.2-1.0) mg/dl AST 28 (13-39) U/L ALT 8 (7-52) U/L Alkaline Phosphatase 61 (34-104) U/L Total Protein 6.8 (6.0-8.3) gm/dl Albumin 3.5 (3.4-5.0) gm/dl Globulin 3.3 (2.5-4.0) gm/dl Albumin/Globulin Ratio 1.1 (0.9-2) Lipase 61 (11-82) U/L Urine Color Yellow Urine Appearance Clear (Clear) Urine pH 5.5 (4.5-7.5) Ur Specific [place] 1.011 (1.000-1.030) Urine Protein 2+ H (Negative) Urine Glucose (UA) Negative (Negative) Urine Ketones Negative (Negative) Urine Blood 3+ H (Negative) Urine Nitrite Negative (Negative) Urine Bilirubin Negative (Negative) Urine Urobilinogen Negative (Negative) Ur Leukocyte Esterase Trace H (Negative) Urine WBC (Auto) 1-5 (0-5) /hpf Urine RBC (Auto) >30 H (0-4) /hpf U Hyaline Cast (Auto) 1-5 (0-5) /lpf U Epithel Cells (Auto) 10-20 H (0-5) /lpf Urine Bacteria (Auto) Negative (Negative) SARS-CoV-2, RNA, NAAT (NEGATIVE) 04/17/22 Range/Units 21:44 POC Hgb (12.0-16.0) g/dl POC Hct (37-47) % POC Sodium (135-144) mmol/L Sodium (136-145) mmol/L POC Potassium (3.3-5.0) mmol/L Potassium (3.5-5.1) mmol/L POC Chloride (101-112) mmol/L Chloride (98-107) mmol/L Carbon Dioxide (21-32) mmol/L POC Total CO2 (24-31) mmol/L Anion Gap (3-11) POC Anion Gap (16-25) mmol/L POC BUN (7-18) mg/dl BUN (6-23) mg/dl Creatinine (0.6-1.2) mg/dl POC Creatinine (0.6-1.3) mg/dl Est Cr Clr Drug Dosing ml/min Est GFR ( Amer) ml/min Est GFR (Non-Af Amer) ml/min BUN/Creatinine Ratio (10-20) Glucose (70-99(Fasting)) mg/dl POC Glucose (other) (70-99) mg/dl Calcium (8.5-10.1) mg/dl POC Ioniz Calcium Ralph (1.12-1.32) mmol/l Total Bilirubin (0.2-1.0) mg/dl AST (13-39) U/L ALT (7-52) U/L Alkaline Phosphatase (34-104) U/L Total Protein (6.0-8.3) gm/dl Albumin (3.4-5.0) gm/dl Globulin (2.5-4.0) gm/dl Albumin/Globulin Ratio (0.9-2) Lipase (11-82) U/L Urine Color Urine Appearance (Clear) Urine pH (4.5-7.5) Ur Specific [place] (1.000-1.030) Urine Protein (Negative) Urine Glucose (UA) (Negative) Urine Ketones (Negative) Urine Blood (Negative) Urine Nitrite (Negative) Urine Bilirubin (Negative) Urine Urobilinogen (Negative) Ur Leukocyte Esterase (Negative) Urine WBC (Auto) (0-5) /hpf Urine RBC (Auto) (0-4) /hpf U Hyaline Cast (Auto) (0-5) /lpf U Epithel Cells (Auto) (0-5) /lpf Urine Bacteria (Auto) (Negative) SARS-CoV-2, RNA, NAAT NEGATIVE (NEGATIVE) Administered Medications Discontinued Medications Al Hydrox/Mg Hydrox/Simethicone (Gi Cocktail Ed Use) 1 dose PO ONE ONE Stop: 04/17/22 21:13 Last Admin: 04/17/22 21:20 Dose: 1 dose Documented By: Hydralazine HCl (Hydralazine Hcl 25 Mg Tab) 25 mg PO NOW STA Stop: 04/17/22 21:12 Last Admin: 04/17/22 21:20 Dose: 25 mg Documented By: Sodium Chloride (Nss 1000ml) 1,000 mls @ 999 mls/hr IV .Q1H1M ONE Stop: 04/17/22 22:00 Last Infusion: 04/17/22 22:58 Dose: 0 mls/hr Documented By: Admin: 04/17/22 21:21 Dose: 999 mls/hr Documented By: Ondansetron HCl (Ondansetron Inj 2 Mg/Ml 2 Ml Vial) 4 mg IV NOW STA Stop: 04/17/22 21:13 Last Admin: 04/17/22 21:20 Dose: 4 mg Documented By: Discharge Plan Visit Data Chief Complaint: Nausea Stated Complaint: LOSS OF APPETITE, FATIGUE, HEADACHE, NAUSEA ED Provider: Kayode Lau Discharge Problem: THOMAS (acute kidney injury), Dehydration, Vomiting Forms Stand Alone Forms: [facility] Prescriptions Prescriptions: No Action hydralazine 25 mg tablet 25 mg PO TID Qty: 270 3RF cholecalciferol (vitamin D3) 25 mcg/drop ( 1,000 unit/drop) drops 150 mcg PO DAILY Rx Instructions: 6 drop dose per patient Restasis MultiDose 0.05 % drops 1 drp ophthalmic (eye) Q12H azelastine 137 mcg (0.1 %) aerosol,spray 2 spray intranasal DAILY Qty: 30 11RF levothyroxine 75 mcg tablet 75 mcg PO QAM Rx Instructions: alternate daily with 50mcg levothyroxine 50 mcg tablet 50 mcg PO QAM Rx Instructions: Alternate daily with 75mcg aspirin [Joaquin Low Dose Aspirin] 81 mg Tablet,Delayed Release (Dr/Ec) 81 mg PO DAILY pantoprazole 40 mg tablet,delayed release (DR/EC) 40 mg PO QAM isosorbide mononitrate 30 mg tablet extended release 24 hr 30 mg PO QAM ezetimibe 10 mg tablet 10 mg PO QPM metoprolol succinate 50 mg tablet extended release 24 hr 25 mg PO QAM Rx Instructions: 1/2 tablet dose Women's Multivitamin 18 mg iron-400 mcg-500 mg Tablet 1 tab PO QAM vitamin E 268 mg (400 unit) Capsule 268 mg PO QAM Allergy Shot 1 dose INJ . EVERY 2 WEEKS Referrals Referrals: Gal Meier DO [Primary Care Provider] -
[2022-04-17 21:38] LABS: Appearance Urine Clear (Clear); Bacteria Urine Automated Negative (Negative); Bilirubin Urine Negative (Negative); Blood Urine 3+ (Negative); Color Urine Yellow; Glucose Urine UA Negative (Negative); Ketones Urine Negative (Negative); Leukocyte Esterase Urine Trace (Negative); Nitrite Urine Negative (Negative); Protein Urine 2+ (Negative); RBC Urine Automated >30 /hpf (0-4); Specific Gravity Urine 1.011 (1.000-1.030); Urobilinogen Urine Negative (Negative); pH Urine 5.5 (4.5-7.5)
[2022-04-17 21:51] LABS: iSTAT Creatinine 2.9 mg/dl (0.6-1.3); iSTAT Hemoglobin 10.2 g/dl (12.0-16.0); iSTAT Ionized Calcium 1.17 mmol/l (1.12-1.32); iSTAT Potassium 3.5 mmol/L (3.3-5.0)
[2022-04-17 21:52] LABS: Albumin Globulin Ratio 1.1 (0.9-2); Albumin Level 3.5 gm/dl (3.4-5.0); BUN Creatinine Ratio 9.8 (10-20); Bilirubin,Total 0.9 mg/dl (0.2-1.0); Calcium 8.9 mg/dl (8.5-10.1); Creatinine Clr Calc Pharmacy 14.2 ml/min; Est GFR (African American) 20.2 ml/min; Est GFR (Non-African American) 17.5 ml/min; Globulin 3.3 gm/dl (2.5-4.0); Potassium 3.6 mmol/L (3.5-5.1); Total Protein 6.8 gm/dl (6.0-8.3)
[2022-04-17 23:23] LABS: Hematocrit (blood only) 32.3 % (34.1-44.9); Mean Corpuscular Hemoglobin 29.2 pg (25.0-34.0); Mean Corpuscular Hgb Conc 34.1 g/dL (32.0-36.0); Mean Corpuscular Volume 85.7 fL (80.0-100.0); Mean Platelet Volume 11.5 fL (9.4-12.3); Platelet Count 138 K/uL (130-400); RDW Coefficient of Variation 13.7 % (11.5-14.5); RDW Standard Deviation 42.6 fL (36.4-46.3); Red Blood Count 3.77 M/uL (3.93-5.22); White Blood Count 1.74 K/ul (4.8-10.8)
[2022-04-17 23:25] LABS: Basophils # (auto) 0.02 K/uL (0-0.2); Basophils % (auto) 1.1 %; Eosinophils # (auto) 0.02 K/uL (0-0.50); Eosinophils % (auto) 1.1 %; Immature Granulocytes # (auto) 0.01 K/uL (0.00-0.02); Immature Granulocytes % (auto) 0.6 %; Lymphocytes # (auto) 0.57 K/uL (1.2-3.4); Lymphocytes % (auto) 32.8 %; Monocytes # (auto) 0.11 K/uL (0.24-0.82); Monocytes % (auto) 6.3 %; Neutrophils # (auto) 1.01 K/uL (1.4-6.5); Neutrophils % (auto) 58.1 %; Ovalocytes 1+
--- NOTE | 2022-04-17 23:33 | History & Physical Report ---
Date of Service April 17, 2022 Assessment & Plan (1) THOMAS (acute kidney injury): Plan: 76yo female with history of HTM, HLP, CAD presenting with persistent nausea, decreased oral tolerance and weight loss. Found to have THOMAS with BUN of 25 and Cr of 2.54. (Increased from 15 and 0.96, respectively on 05/21/21. Electrolytes and chemistry panel are otherwise acceptable. She reports adequate UOP although occasionally dark in color. Also reports urinary hesitancy and incomplete emptying at times. UA is significant for 2+ protein as well as 3+ blood with >3O RBCs CT of the abdomen/pelvis comments on a simple renal cyst on right Uncertain if patient's renal failure is contributing to her symptoms of nausea and dysguesia? -Admit to medical -External catheter for I/O monitoring -Bladder scan as needed -Check CK -Check PO4 -Check urine Na and Cr for FeNA calculation -Check urine Protein and Cr for spot Protein:Cr -Check urine microscopy to further assess hematuria - glomerular vs nonglomerular -Consider Urology consultation -IVF with LR at 80mL/hr x 2 liters -Avoid nephrotoxic agents -Renal dosing where needed -Repeat chemistry in AM (2) Nausea: Plan: Patient with ongoing nausea. Possibly in part secondary to decline in renal function. She had an EGD performed in October 2021 which was largely benign. ?anticipatory nausea participating as well as patient states she gets nauseated and anxious when thinking about meals at time ?functional dyspepsia, ?motility, less likely central nausea -Zofran PRN -Ativan o.25mg po prior to meals -Treatment of THOMAS as above (3) Hematuria: Plan: Noted on UA -Urine microscopy ordered (4) CAD (coronary artery disease): Plan: Patient with CAD s/p stent placement to LAD in 2017. Denies chest pain. -Continue ASA 81mg po daily -Continue Zetia 10mg po daily -Continue Metoprolol -Continue Isosorbide and Hydralazine (5) GERD (gastroesophageal reflux disease): Plan: Chronic -Continue Protonix 40mg po daily (6) Hyperlipidemia: Plan: Chronic -Continue zetia (7) Hypothyroidism: Plan: Chronic -Continue Synthroid 50mcg alternating with 75mcg po daily -Check TSH with AM labs History of Present Illness Chief Complaint: decreased oral intake Primary Care Provider: DO Isadora Logan is a 76yo female with history of HTN, HLP, GERD and CAD s/p CRUZITO to LAD in 2017. Patient reports she has been having poor oral intake for the last several months with associated weight loss. She first reports that she had early satiety starting several months ago. She would eat about 25% of her meal then fell full and become nauseated. Over the last month she reports decreased oral intake - becomes nauseated after eating a small amount of food. At times she becomes nauseated with thinking about eating and is becoming increasingly anxious with eating. Today she states she was not even able to eat applesauce or drink fluids without becoming nauseated. She reports feeling nauseated all day today. She also had one episode of watery diarrhea a well as headache and chills. She reports having an appetite - she feels hungry and wants to eat. She has no problems chewing, no dental or oral pain. She is able to swallow without dysphagia or odynophagia. No oral ulcers or lesions. She denies abdominal pain or bloating, vomiting. Denies eating disorder history She does state that food tastes different and often tastes poorly She had an EGD performed 11/09 which was largely unremarkable with exception of antral ulcers which were thought to be secondary to NSAID induced gastropathy. Biopsies were performed which were NEGATIVE for malignancy. H.pylori testing was also NEGATIVE. She was seen by GI on 01/04/22. At that visit her Protonix 40mg was decreased from BID to daily (was on BID x 3 months). Allergies Allergy/AdvReac Type Severity Reaction Status Date / Time alcohol Allergy Unknown Verified 04/17/22 21:57 [From Mastisol Adhesive] atorvastatin [From Lipitor] Allergy Unknown Verified 04/17/22 21:57 citalopram [From Celexa] Allergy Unknown Verified 04/17/22 21:57 fexofenadine Allergy Unknown Verified 04/17/22 21:57 [From Rebecca-D 12 Hour] gum mastic Allergy Unknown Verified 04/17/22 21:57 [From Mastisol Adhesive] ketorolac [From Toradol] Allergy Unknown Verified 04/17/22 21:57 methyl salicylate Allergy Unknown Verified 04/17/22 21:57 [From Mastisol Adhesive] pseudoephedrine Allergy Unknown Verified 04/17/22 21:57 [From Rebecca-D 12 Hour] simvastatin [From Zocor] Allergy Unknown Verified 04/17/22 21:57 storax Allergy Unknown Verified 04/17/22 21:57 [From Mastisol Adhesive] clarithromycin AdvReac Intermediate MOUTH SORES Verified 04/17/22 21:57 ENVIRONMENTAL Allergy Intermediate YEAST/MOLD/DUST-SNEEZING, Uncoded 04/17/22 21:57 CONGESTION Biaxin TABS Allergy Unknown Uncoded 04/17/22 21:57 Home Medications Medication Instructions Recorded Confirmed Type aspirin 81 mg tablet,delayed 81 mg PO DAILY 01/10/19 04/17/22 History release (Joaquin Low Dose Aspirin) levothyroxine 50 mcg tablet 50 mcg PO QAM 01/10/19 04/17/22 History levothyroxine 75 mcg tablet 75 mcg PO QAM 01/10/19 04/17/22 History cholecalciferol (vitamin D3) 25 150 mcg PO DAILY 12/11/20 04/17/22 History mcg/drop (1,000 unit/drop) oral drops azelastine 137 mcg (0.1 %) nasal 2 spray intranasal DAILY #30 mL 06/18/21 04/17/22 Rx spray aerosol cyclosporine 0.05 % eye drops 1 drp ophthalmic (eye) Q12H 06/18/21 04/17/22 History (Restasis MultiDose) hydralazine 25 mg tablet 25 mg PO TID #270 tabs 09/14/21 04/17/22 Rx pantoprazole 40 mg tablet,delayed 40 mg PO QAM 12/15/21 04/17/22 History release Allergy Shot 1 dose INJ . EVERY 2 WEEKS 04/17/22 04/17/22 History ezetimibe 10 mg tablet 10 mg PO QPM 04/17/22 04/17/22 History isosorbide mononitrate 30 mg 30 mg PO QAM 04/17/22 04/17/22 History tablet,extended release 24 hr metoprolol succinate 50 mg 25 mg PO QAM 04/17/22 04/17/22 History tablet,extended release 24 hr [id number]-Ca carb-vit K 1 tab PO QAM 04/17/22 04/17/22 History 18 mg iron-400 mcg-500 mg tablet vitamin E 268 mg (400 unit) capsule 268 mg PO QAM 04/17/22 04/17/22 History Past Med/Surg History Medical History Allergic rhinitis CAD (coronary artery disease) Chest pain GERD (gastroesophageal reflux disease) Hyperlipidemia Hypertension Hypothyroidism Peptic ulcer disease Plantar fasciitis of right foot Presence of drug coated stent in LAD coronary artery Surgical History H/O colonoscopy History of heart artery stent S/P breast lumpectomy S/P RIDGE-BSO S/P tooth extraction Family History Father Cancer Diabetes Stroke Mother Coronary heart disease Hypertension Heart disease Grandmother Coronary heart disease Sister Breast cancer, Onset Age: 66 Brother Hearing loss Other No family history of adverse response to anesthesia No family history of bleeding disorder Denies family history of Ovarian cancer Colorectal cancer Social History Smoking Status: Never smoker Hx Alcohol Use: Yes Hx Substance Use: No Preferred Language: Belgian Communication Ability: Effective Process Mechanic Required: No Beliefs That Will Affect Care: None Current Living Situation: Alone Current Living Situation Comment: 7 steps into apartment building Feels Safe at Home: Yes Assistive Devices: None Review of Systems Review of Systems: All systems reviewed & are unremarkable except as noted in HPI & below Physical Exam Physical Exam: General: patient resting comfortably, NAD, non-toxic in appearance, AA&O x 4 Skin: warm, dry, intact, no rashes or lesions HEENT: NC/AT, PERRL, EOMI, anicteric sclera, conjunctiva without injection, external ear normal to inspection and nontender, nares patent, DRY mucus membranes, dentition intact, no oropharyngeal lesions, neck supple, trachea midline, no LAD, no thyromegaly, no JVD Heart: +S1/S2, regular, no m/r/g Lungs: equal air entry bilaterally, no rales/rhonchi/wheezes Abd: +BS, soft, NT/ND, no masses/organomegaly/ascites Ext: warm, 2+ pulses in UE/LE bilaterally, no clubbing/cyanosis or edema Neuro: nonfocal, patient AA&O x 4, speech intact, no facial droop, moving all extremities on command with equal strength 5/5 Results & Data Results & Data ([facility]) Vital Signs (Past 12 Hours) Vital Signs Temp Pulse Pulse Resp BP BP Pulse Ox 04/17/22 22:30 74 21 163/65 H 95 04/17/22 22:28 76 25 H 152/86 H 96 04/17/22 21:19 66 16 177/88 H 97 04/17/22 20:39 36.7 C 76 16 205/92 H 94 O2 Del Method 04/17/22 22:30 Room Air 04/17/22 22:28 Room Air 04/17/22 21:19 Room Air 04/17/22 20:39 Room Air Laboratory Results Laboratory Results WBC 1.74 K/ul (4.8-10.8) L 04/17/22 21:12 RBC 3.77 M/uL (3.93-5.22) L 04/17/22 21:12 Hgb 11.0 g/dl (12.0-16.0) L 04/17/22 21:12 POC Hgb 10.2 g/dl (12.0-16.0) L 04/17/22 21:37 Hct 32.3 % (34.1-44.9) L 04/17/22 21:12 POC Hct 30 % (37-47) L 04/17/22 21:37 MCV 85.7 fL (80.0-100.0) 04/17/22 21:12 MCH 29.2 pg (25.0-34.0) 04/17/22 21:12 MCHC 34.1 g/dL (32.0-36.0) 04/17/22 21:12 RDW Std Deviation 42.6 fL (36.4-46.3) 04/17/22 21:12 RDW Coeff of Jarrod 13.7 % (11.5-14.5) 04/17/22 21:12 Plt Count 138 K/uL (130-400) 04/17/22 21:12 MPV 11.5 fL (9.4-12.3) 04/17/22 21:12 Immature Gran % (Auto) 0.6 % 04/17/22 21:12 Neut % (Auto) 58.1 % 04/17/22 21:12 Lymph % (Auto) 32.8 % 04/17/22 21:12 Cottle % (Auto) 6.3 % 04/17/22 21:12 Eos % (Auto) 1.1 % 04/17/22 21:12 Baso % (Auto) 1.1 % 04/17/22 21:12 Neut # (Auto) 1.01 K/uL (1.4-6.5) L 04/17/22 21:12 Lymph # (Auto) 0.57 K/uL (1.2-3.4) L 04/17/22 21:12 Cottle # (Auto) 0.11 K/uL (0.24-0.82) L 04/17/22 21:12 Eos # (Auto) 0.02 K/uL (0-0.50) 04/17/22 21:12 Baso # (Auto) 0.02 K/uL (0-0.2) 04/17/22 21:12 Immature Gran # (Auto) 0.01 K/uL (0.00-0.02) 04/17/22 21:12 Ovalocytes 1+ 04/17/22 21:12 POC Sodium 139 mmol/L (135-144) 04/17/22 21:37 Sodium 136 mmol/L (136-145) 04/17/22 21:12 POC Potassium 3.5 mmol/L (3.3-5.0) 04/17/22 21:37 Potassium 3.6 mmol/L (3.5-5.1) 04/17/22 21:12 POC Chloride 105 mmol/L (101-112) 04/17/22 21:37 Chloride 105 mmol/L (98-107) 04/17/22 21:12 Carbon Dioxide 22 mmol/L (21-32) 04/17/22 21:12 POC Total CO2 22 mmol/L (24-31) L 04/17/22 21:37 Anion Gap 9 (3-11) 04/17/22 21:12 POC Anion Gap 17.0 mmol/L (16-25) 04/17/22 21:37 POC BUN 24 mg/dl (7-18) H 04/17/22 21:37 BUN 25 mg/dl (6-23) H 04/17/22 21:12 Creatinine 2.54 mg/dl (0.6-1.2) H 04/17/22 21:12 POC Creatinine 2.9 mg/dl (0.6-1.3) H 04/17/22 21:37 Est Cr Clr Drug Dosing 14.2 ml/min 04/17/22 21:12 Est GFR ( Amer) 20.2 ml/min 04/17/22 21:12 Est GFR (Non-Af Amer) 17.5 ml/min 04/17/22 21:12 BUN/Creatinine Ratio 9.8 (10-20) L 04/17/22 21:12 Glucose 88 mg/dl (70-99(Fasting)) 04/17/22 21:12 POC Glucose (other) 93 mg/dl (70-99) 04/17/22 21:37 Calcium 8.9 mg/dl (8.5-10.1) 04/17/22 21:12 POC Ioniz Calcium Ralph 1.17 mmol/l (1.12-1.32) 04/17/22 21:37 Total Bilirubin 0.9 mg/dl (0.2-1.0) 04/17/22 21:12 AST 28 U/L (13-39) 04/17/22 21:12 ALT 8 U/L (7-52) 04/17/22 21:12 Alkaline Phosphatase 61 U/L (34-104) 04/17/22 21:12 Total Protein 6.8 gm/dl (6.0-8.3) 04/17/22 21:12 Albumin 3.5 gm/dl (3.4-5.0) 04/17/22 21:12 Globulin 3.3 gm/dl (2.5-4.0) 04/17/22 21:12 Albumin/Globulin Ratio 1.1 (0.9-2) 04/17/22 21:12 Lipase 61 U/L (11-82) 04/17/22 21:12 Urine Color Yellow 04/17/22 21:10 Urine Appearance Clear (Clear) 04/17/22 21:10 Urine pH 5.5 (4.5-7.5) 04/17/22 21:10 Ur Specific [place] 1.011 (1.000-1.030) 04/17/22 21:10 Urine Protein 2+ (Negative) H 04/17/22 21:10 Urine Glucose (UA) Negative (Negative) 04/17/22 21:10 Urine Ketones Negative (Negative) 04/17/22 21:10 Urine Blood 3+ (Negative) H 04/17/22 21:10 Urine Nitrite Negative (Negative) 04/17/22 21:10 Urine Bilirubin Negative (Negative) 04/17/22 21:10 Urine Urobilinogen Negative (Negative) 04/17/22 21:10 Ur Leukocyte Esterase Trace (Negative) H 04/17/22 21:10 Urine WBC (Auto) 1-5 /hpf (0-5) 04/17/22 21:10 Urine RBC (Auto) >30 /hpf (0-4) H 04/17/22 21:10 U Hyaline Cast (Auto) 1-5 /lpf (0-5) 04/17/22 21:10 U Epithel Cells (Auto) 10-20 /lpf (0-5) H 04/17/22 21:10 Urine Bacteria (Auto) Negative (Negative) 04/17/22 21:10 SARS-CoV-2, RNA, NAAT NEGATIVE (NEGATIVE) 04/17/22 21:44 Code Status & VTE Plan VTE Prophylaxis Plan VTE Prophylaxis will be ordered: Yes PG Care Time/CCT Total # of Minutes Spent Total Time Spent with Patient: Total time spent is greater than 50% in coordination of care (as documented) at patient's floor/unit and/or counseling patient: Coding Level of Care Code 10176 Initial Inpt Care Lvl 3 Diagnoses THOMAS (acute kidney injury) N17.9 Nausea R11.0 Hematuria R31.9 CAD (coronary artery disease) I25.10 GERD (gastroesophageal reflux disease) K21.9 Esophagitis presence: esophagitis presence not specified Hyperlipidemia E78.5 Hypothyroidism E03.9 (1) GERD (gastroesophageal reflux disease) Esophagitis presence: esophagitis presence not specified Qualified Code(s): K21.9 - Gastro-esophageal reflux disease without esophagitis
[2022-04-18] MEDS: LACTATED RINGER'S 1,000 ML IV SCH ×2 (01:42→14:34)
[2022-04-18] MEDS ORDERED: ONDANSETRON INJ 2 MG/ML 2 ML VIAL IV PRN (01:42)
[2022-04-18 02:20] LABS: Magnesium 1.9 mg/dl (1.7-2.4); Phosphorus 3.1 mg/dl (2.5-4.9)
[2022-04-18] MEDS: LEVOTHYROXINE SODIUM 50 MCG TABLET PO SCH (06:47)
--- NOTE | 2022-04-18 07:20 | CT Scan Report ---
CT SCAN OF THE BRAIN WITHOUT IV CONTRAST CLINICAL HISTORY: Headache. COMPARISON STUDY: CT of the brain dated 01/10/2009. TECHNIQUE: Unenhanced axial CT scan of the brain is performed from the vertex to the skull base. A do se lowering technique was utilized adhering to the principles of ALARA. FINDINGS: Brain parenchyma: There is age-related involutional change noting mild subcortical and periventricula r microangiopathic disease. There is no hemorrhage, mass effect, or evidence of acute territorial isc hemia by CT criteria. Saenz-white matter differentiation is preserved. The pineal gland is densely brissa cified. No extra-axial fluid collection is seen. Ventricles, sulci, cisterns: Prominent secondary to involutional change. Intracranial vasculature: There is atherosclerotic calcification of the cavernous carotid and vertebr al arteries. Calvarium: Unremarkable. Sinuses and mastoids: There is evidence of previous paranasal sinus surgery. The visualized paranasal sinuses are clear. The mastoid air cells are well pneumatized. Orbits: The bony orbits are grossly intact. There are bilateral ocular lens implants. IMPRESSION: There is no hemorrhage, mass effect, or evidence of acute territorial ischemia by CT vinod cristobal. ACT 112: Negative or not required by law. Electronically signed by: Baljeet El M.D. 04/18/2022 7:18 AM
[2022-04-18] MEDS: hydrALAZINE HCL 25 MG TAB PO SCH ×3 (07:45→20:56)
[2022-04-18] MEDS: METOPROLOL SUCC 25MG EXT REL TAB PO SCH (07:46)
[2022-04-18] MEDS: ISOSORBIDE MONO EXTENDED REL 30 MG TABCR PO SCH (07:46)
[2022-04-18] MEDS: ASPIRIN 81 MG ECTAB PO SCH (07:47)
[2022-04-18 08:01] LABS: Hematocrit (blood only) 28.6 % (34.1-44.9); Hemoglobin 9.5 g/dl (12.0-16.0); Mean Corpuscular Hemoglobin 28.9 pg (25.0-34.0); Mean Corpuscular Hgb Conc 33.2 g/dL (32.0-36.0); Mean Corpuscular Volume 86.9 fL (80.0-100.0); Mean Platelet Volume 11.2 fL (9.4-12.3); Platelet Count 105 K/uL (130-400); RDW Coefficient of Variation 13.9 % (11.5-14.5); RDW Standard Deviation 43.7 fL (36.4-46.3); Red Blood Count 3.29 M/uL (3.93-5.22); White Blood Count 1.11 K/ul (4.8-10.8)
--- NOTE | 2022-04-18 08:02 | CT Scan Report ---
ABDOMEN AND PELVIS CT WITHOUT CONTRAST CT DOSE: 807.53 mGy.cm HISTORY: Nausea. Vomiting. Generalized abdominal pain. TECHNIQUE: Multiaxial CT images of the abdomen and pelvis were performed without contrast. A dose lo wering technique was utilized adhering to the principles of ALARA. COMPARISON STUDY: Abdomen and pelvis CT 09/01/2021. FINDINGS: There are 2 new nodules within the right lower lobe measure up to 3 mm on images 27 and 59. These favor small foci of inflammatory/infectious change given the recent interval change. Similar-a ppearing 3 mm nodule within the lingula on image 12 which is also new. No pneumoperitoneum. No pneuma tosis. No fractures within the visualized osseous structures. The unenhanced liver, spleen, adrenal g lands, pancreas, left kidney are unremarkable. Stable 1.7 cm cyst within the right kidney. No renal o r ureteral stones. No hydronephrosis. Mild calcified plaque within the normal caliber abdominal aorta . Prior cholecystectomy, hysterectomy, and appendectomy. The bladder is unremarkable. Prior rectosigm oid anastomosis. Suboptimal evaluation for bowel pathology due to the lack of intravenous and oral co ntrast. However, there is no definite bowel wall thickening or obstruction. IMPRESSION: 1. No definite bowel wall thickening or obstruction. 2. A few subcentimeter pulmonary nodules within the lung bases measuring up to 3 mm. Although technic ally indeterminate these favor small foci of inflammatory/infectious change given the recent interval change. 3. Postoperative changes as described above. ACT 112: Negative or not required by law. Electronically signed by: Olvin Langley M.D. 04/18/2022 8:01 AM
--- NOTE | 2022-04-18 08:03 | Hospitalist Progress Note ---
Date of Service April 18, 2022 Assessment & Plan (1) THOMAS (acute kidney injury): Plan: Pt is a 76 yo female with PMH of HTN, CAD, HLD, hypothyroidism, and PUD presenting with complaints of nausea, inability to eat, and weight loss that has been progressing over the past several months. Nausea - progressive PUD vs. functional dyspepsia vs. malignancy vs. trigger points - CTAP (non contrast) showed stable simple right renal cyst and small (up to 3mm) pulmonary nodules in lung bases - Zofran PRN - Ativan 0.25mg PO prior to meals - given pepcid, protonix, viscous lidocaine, tums, and maalox for possible PUD progression - monitor for symptom improvement THOMAS - prerenal depletion vs. intrinsic - Cr on admission 2.54 - Cr today 2.41 - BUN/Cr= 9.1 - FeNa 2.3%- lending itself to intrinsic renal (ATN) - started on LR 80mL/hr increased to 100 mL/hr - plan to continue hydration Hematuria - intrinsic renal vs. post renal (obstructive) - 3+ on UA, 2+ protein, neg for infection - FeNa 2.3%- lending itself to intrinsic renal - no casts - continue to monitor - consider urology consult - plan for outpatient cystoscopy Pancytopenia - malnutrition vs. malignancy vs. infection - WBC 1.11, Plt 105, Hgb 9.5 - appears non infectious (procal and CRP normal) - blood cx pending - peripheral smear normal - seems most likely d/t lack of PO intake CAD - s/p stent placement to LAD in 2017 -Continue ASA 81mg PO daily -Continue Zetia 10mg PO daily -Continue Metoprolol HTN -Continue Isosorbide and Hydralazine GERD -Continue Protonix 40mg PO daily HLD -Continue ezetimibe Hypothyroidism -Continue Synthroid 50mcg alternating with 75mcg PO daily -TSH slightly elevated at 4.635 (2) Nausea: (3) Hematuria: (4) CAD (coronary artery disease): (5) GERD (gastroesophageal reflux disease): (6) Hyperlipidemia: (7) Hypothyroidism: Plan Diet: full liquid Fluids/electrolytes: LR 100 mL/hr Dispo: med Admission and Anticipated Discharge Date Admission Date: April 17, 2022 Supervising Physician Co-Signing Physician Notes I personally examined the patient and verified all delacruz points of history and exam, discussed case, and agree with decision making with Dr Weaver Nausea, not much of any vomiting. Lots of weight loss. Metallic taste in her mouth. Ongoing for probably about 3 months, although it seems like fatigue may have preceded this as well. Vitals noted, in general she is awake and alert pleasant no distress. HEENT normocephalic atraumatic mucous membranes moist. Breathing unlabored no accessory muscle use good effort. Abdomen is soft she has epigastric tendernessit is hard to tell if it is truly epigastric tenderness or tenderness in trigger points, as I feel at least 2 discrete tender trigger points in her left upper abdomen and 1 on the right. No guarding rebound or rigidity. Skin without rashes, pallor, icterus. Intractable nausea and weight lossdifferential ranges from peptic ulcer disease to trigger points to functional dyspepsia to otherfor now we will give aggressive acid suppression and follow-up for symptom improvement. Consider trigger point injection, consider repeat EGD. dehydration, ARF - probably prerenal w some ATN - hydrate, follow, time. doubt uremic - no tremors/etc pancytopenia - peripheral smear reassuring. ?nutritional deficiency - check b12/folate/etc acute calorie malnutrition otherwise as above time in ~330p time out ~415p >30mins face to face Subjective Pt is a 76 yo female with PMH of HTN, CAD, HLD, hypothyroidism, and PUD presenting with complaints of nausea, inability to eat, and weight loss. 04/18/2022: Pt explains to me that she has had difficulty eating and feeling nauseated for multiple months. This seems to have gotten worse, getting to the point yesterday where she "could not even eat applesauce." The pt states that she is often hungry but begins to eat and feels as though she will throw up so she stops eating. She has not actually vomited. She describes that the food she eats does not take right (metallic like). She generally has normal BM but did have some loose stool/diarrhea yesterday. She also explains that she gets headaches semi frequently. She denies chest pain, SOB, visual changes, and obvious bleeding. She explains to me that she recently had a melanoma excised from her back. She also has a hx of BCC. No other personal cancer hx. Physical Exam Constitutional: NAD. Vitals WNL. Eyes: no conjunctival abnormality Respiratory: CTA bilaterally. No rhonchi, wheezing, or crackles. Non labored breathing. Cardiovascular: RRR. No murmur noted. No LL edema. Gastrointestinal (Abdomen): Nontender, +BS. No masses noted. Midline trigger point noted in epigastric region. Skin: no rashes, warm and dry Psychiatric: Alert. Mood and affect congruent. Results & Data Results & Data ([facility]) Vital Signs (Past 12 Hours) Vital Signs Temp Pulse Pulse Resp BP BP Pulse Ox 04/18/22 07:19 36.8 C 64 18 170/71 H 93 04/18/22 01:30 04/18/22 01:30 04/18/22 01:30 37.2 C 84 16 176/73 H 95 04/18/22 00:30 71 24 163/68 H 92 04/18/22 00:00 70 22 156/71 H 93 04/17/22 23:30 72 18 179/93 H 94 04/17/22 22:30 74 21 163/65 H 95 04/17/22 22:28 76 25 H 152/86 H 96 04/17/22 21:19 66 16 177/88 H 97 04/17/22 20:39 36.7 C 76 16 205/92 H 94 O2 Del Method 04/18/22 07:19 Room Air 04/18/22 01:30 Room Air 04/18/22 01:30 Room Air 04/18/22 01:30 Room Air 04/18/22 00:30 Room Air 04/18/22 00:00 Room Air 04/17/22 23:30 Room Air 04/17/22 22:30 Room Air 04/17/22 22:28 Room Air 04/17/22 21:19 Room Air 04/17/22 20:39 Room Air Resident Activity Tracking Resident Involvement: Resident Care Provided Care Provided: Adult Hospital Medicine (1) GERD (gastroesophageal reflux disease) Esophagitis presence: esophagitis presence not specified Qualified Code(s): K21.9 - Gastro-esophageal reflux disease without esophagitis
[2022-04-18 08:30] LABS: BUN Creatinine Ratio 9.1 (10-20); Calcium 8.1 mg/dl (8.5-10.1); Creatinine Clr Calc Pharmacy 15.1 ml/min; Est GFR (African American) 21.6 ml/min; Est GFR (Non-African American) 18.6 ml/min; Potassium 3.6 mmol/L (3.5-5.1)
[2022-04-18 08:38] LABS: Basophils # (auto) 0.01 K/uL (0-0.2); Basophils % (auto) 0.9 %; Eosinophils # (auto) 0.02 K/uL (0-0.50); Eosinophils % (auto) 1.8 %; Immature Granulocytes # (auto) 0.01 K/uL (0.00-0.02); Immature Granulocytes % (auto) 0.9 %; Lymphocytes # (auto) 0.48 K/uL (1.2-3.4); Lymphocytes % (auto) 43.2 %; Monocytes # (auto) 0.07 K/uL (0.24-0.82); Monocytes % (auto) 6.3 %; Neutrophils # (auto) 0.52 K/uL (1.4-6.5); Neutrophils % (auto) 46.9 %; Ovalocytes 1+
[2022-04-18] MEDS ORDERED: PANTOprazole 40 MG TAB PO SCH (09:00)
[2022-04-18] MEDS: AZELASTINE HCL 0.1% NASAL 200 SPRAYS/27,400 MCG BTL SCH (09:33)
[2022-04-18] MEDS: LORazepam 0.5 MG TAB PO SCH ×3 (09:33→17:07)
[2022-04-18 10:23] LABS: Bilirubin Direct 0.2 mg/dl (0-0.2); Bilirubin,Total 0.8 mg/dl (0.2-1.0); C Reactive Protein 0.9 mg/dl (0-0.5); Total Protein 5.8 gm/dl (6.0-8.3)
[2022-04-18 10:30] LABS: Bacteria Urine Automated Negative (Negative); RBC Urine Automated >30 /hpf (0-4)
[2022-04-18 10:49] LABS: Creatinine Urine Random 59.2 mg/dl; Total Protein Urine Random 52.5 mg/dl (0-11.9)
[2022-04-18] MEDS ORDERED: CALCIUM CARBONATE 500 MG CHEWABLE TAB PO PRN (15:07)
[2022-04-18] MEDS ORDERED: LIDOCAINE 5% 1 PATCH TD SCH (15:15)
[2022-04-18] MEDS ORDERED: LIDOCAINE VISCOUS 2% 15 ML UDC MT PRN (15:16)
[2022-04-18] MEDS: ALUMINUM/MAGNESIUM SUSP 30 ML UDC PO SCH ×2 (17:06→21:00)
--- NOTE | 2022-04-18 19:16 | Billing Data ---
Date of Service April 18, 2022 Coding Level of Care Code 76927 Prolonged Care (int'l)
--- NOTE | 2022-04-18 19:16 | Billing Data ---
Date of Service April 18, 2022 Coding Level of Care Code 41910 Subseq Hosp Care Lvl 3
[2022-04-18] MEDS: EZETIMIBE 10 MG TABLET PO SCH (20:56)
[2022-04-18] MEDS: PANTOprazole 40 MG TAB PO SCH (20:57)
[2022-04-18] MEDS: FAMOTIDINE 20 MG TAB PO SCH (20:57)
[2022-04-19] MEDS: LACTATED RINGER'S 1,000 ML IV SCH ×3 (00:37→20:51)
[2022-04-19] MEDS: ALUMINUM/MAGNESIUM SUSP 30 ML UDC PO SCH ×4 (04:14→20:53)
[2022-04-19] MEDS: LEVOTHYROXINE SODIUM 75 MCG TABLET PO SCH (05:53)
[2022-04-19 07:15] LABS: BUN Creatinine Ratio 8.8 (10-20); Calcium 8.1 mg/dl (8.5-10.1); Creatinine Clr Calc Pharmacy 15.1 ml/min; Est GFR (African American) 21.7 ml/min; Est GFR (Non-African American) 18.7 ml/min; Potassium 3.6 mmol/L (3.5-5.1)
[2022-04-19] MEDS: LORazepam 0.5 MG TAB PO SCH ×3 (08:04→17:20)
--- NOTE | 2022-04-19 08:05 | Hospitalist Progress Note ---
Date of Service April 19, 2022 Assessment & Plan (1) THOMAS (acute kidney injury): Plan: Pt is a 76 yo female with PMH of HTN, CAD, HLD, hypothyroidism, and PUD presenting with complaints of nausea, inability to eat, and weight loss that has been progressing over the past several months. Nausea - progressive PUD vs. functional dyspepsia vs. malignancy vs. trigger points - CTAP (non contrast) showed stable simple right renal cyst and small (up to 3mm) pulmonary nodules in lung bases - Zofran PRN - Ativan 0.25mg PO prior to meals - Combo of pepcid, protonix, viscous lidocaine, tums, and maalox helped symptoms slightly, will continue - advanced to regular food today- tolerated well - EGD inpatient vs. outpatient? to assess PUD - began cyproheptadine for functional dyspepsia at 2 mg QID - to inject lidocaine tomorrow for trigger points Pancytopenia - malnutrition vs. malignancy vs. infection - WBC 1.15, Plt 96, Hgb 8.8 (yesterday 9.5) - appears non infectious (procal and CRP normal) - reticulocyte count inappropriately WNL at 1.1 - low iron, IBC, and transferrin with normal ferritin - blood cx no growth at 24 hrs - viral labs pending - peripheral smear cytology normal - seems most likely d/t lack of PO intake - consult hem/onc Anemia - Hgb down to 8.8 from 9.5 - asymptomatic - continue monitoring THOMAS - prerenal depletion vs. intrinsic - Cr on admission 2.54 - Cr today 2.40 - BUN/Cr= 9.1 - FeNa 2.3%- lending itself to intrinsic renal (ATN) - LR 100 mL/hr - plan to continue hydration Hematuria - intrinsic renal vs. post renal (obstructive) - 3+ on UA, 2+ protein, neg for infection, no casts - FeNa 2.3%- lending itself to intrinsic renal (ATN) - continue to monitor - consider urology consult - plan for outpatient cystoscopy CAD - s/p stent placement to LAD in 2017 -Continue ASA 81mg PO daily -Continue Zetia 10mg PO daily -Continue Metoprolol HTN -Continue Isosorbide and Hydralazine GERD -Continue Protonix 40mg PO daily HLD -Continue ezetimibe Hypothyroidism -Continue Synthroid 50mcg alternating with 75mcg PO daily -TSH slightly elevated at 4.635 (2) Nausea: (3) Hematuria: (4) CAD (coronary artery disease): (5) GERD (gastroesophageal reflux disease): (6) Hyperlipidemia: (7) Hypothyroidism: Plan Diet: regular Fluids/electrolytes: LR 100 mL/hr consults: hem/onc Dispo: med Admission and Anticipated Discharge Date Admission Date: April 17, 2022 Supervising Physician Co-Signing Physician Notes I personally examined the patient and verified all delacruz points of history and exam, discussed case, and agree with decision making with Dr Weaver Notes that she feels better, but on directed questioning she still is not really eating well has early satiety and maybe only ate a little bit more than at previous meals. Family member who is a surgeon is on the phone and speaker phone with patient's permission, answered all questions to the best my ability. Vitals noted, in general she is awake and alert pleasant no distress. HEENT normocephalic atraumatic mucous membranes moist. Breathing unlabored no accessory muscle use good effort. Skin without rashes, pallor, icterus. Intractable nausea and weight lossseems most likely to be functional dyspepsia, trigger point caused, or both. However, given her prior peptic ulcer diseasecannot definitively rule this outwill discuss with GI regarding a possible EGD. After discussion with patient and family, given we have 3 potential leading differentials for her nausea and weight lossdiscussed a stepwise approach versus going after all 3 at onceand they opted to go after all 3 at once. For peptic ulcer disease we will continue with acid suppression, EGD as soon as can be arranged. for trigger pointsdiscussed and will perform trigger point injection at the bedside tomorrow, and for functional dyspepsia starting cyproheptadine, educated. dehydration, ARF - probably initially prerenal w that led to ATN. Creatinine did not improve much from yesterday and todayI suspect this is a little bit of a new baseline, but given that ATN is likely the mechanism, with time I am hopef ul for more renal recovery. Still doubt uremic - no tremors/etc pancytopenia - peripheral smear reassuring. ?nutritional deficiency -given her weight loss and malnutrition otherwise this is certainly plausible. acute calorie malnutrition otherwise as above time in ~445 p time out ~520 p >30mins face to face Subjective Pt is a 76 yo female with PMH of HTN, CAD, HLD, hypothyroidism, and PUD presenting with complaints of nausea, inability to eat, and weight loss. 04/18/2022: Pt explains to me that she has had difficulty eating and feeling n auseated for multiple months. This seems to have gotten worse, getting to the point yesterday where she "could not even eat applesauce." The pt states that she is often hungry but begins to eat and feels as though she will throw up so she stops eating. She has not actually vomited. She describes that the food she eats does not take right (metallic like). She generally has normal BM but did have some loose stool/diarrhea yesterday. She also explains that she gets headaches semi frequently. She denies chest pain, SOB, visual changes, and obvious bleeding. She explains to me that she recently had a melanoma excised from her back. She also has a hx of BCC. No other personal cancer hx. 04/19/2022: Pt feeling slightly improved today. She says that her dinner was good last night without much nausea or gagging except for chocolate pudding. She feels as though she cannot eat as much as she feels she should be able to. She also seemed to tolerate regular food for lunch today, but again not as much as she feels she should be eating. Her urine had been not as dark red as before and her most recent urination was yellow. She had a few BM yesterday and she did not notice any BRB or darkened color. She notes that her most recent BM was yellow in color. She denies any chest pain, SOB, leg pain, and abdominal pain today. Physical Exam Constitutional: NAD. Vitals WNL. Eyes: no conjunctival abnormality Respiratory: CTA bilaterally. No rhonchi, wheezing, or crackles. Non labored breathing. Cardiovascular: RRR. No murmur noted. No LL edema. Gastrointestinal (Abdomen): Nontender, +BS. No masses noted. Skin: no rashes, warm and dry Psychiatric: Alert. Mood and affect congruent. Results & Data Results & Data ([facility]) Vital Signs (Past 12 Hours) Vital Signs Temp Pulse Resp BP Pulse Ox O2 Del Method 04/18/22 20:53 37.1 C 75 18 147/73 H 94 Room Air Resident Activity Tracking Resident Involvement: Resident Care Provided Care Provided: Adult Hospital Medicine (1) GERD (gastroesophageal reflux disease) Esophagitis presence: esophagitis presence not specified Qualified Code(s): K21.9 - Gastro-esophageal reflux disease without esophagitis
[2022-04-19 08:32] LABS: Basophils # (auto) 0.01 K/uL (0-0.2); Basophils % (auto) 0.9 %; Eosinophils # (auto) 0.01 K/uL (0-0.50); Eosinophils % (auto) 0.9 %; Hematocrit (blood only) 25.9 % (34.1-44.9); Hemoglobin 8.8 g/dl (12.0-16.0); Immature Granulocytes # (auto) 0.01 K/uL (0.00-0.02); Immature Granulocytes % (auto) 0.9 %; Lymphocytes # (auto) 0.46 K/uL (1.2-3.4); Mean Corpuscular Hemoglobin 29.2 pg (25.0-34.0); Mean Platelet Volume 11.7 fL (9.4-12.3); Monocytes # (auto) 0.06 K/uL (0.24-0.82); Monocytes % (auto) 5.2 %; Neutrophils % (auto) 52.1 %; Platelet Count 96 K/uL (130-400); Platelet Estimate Normal (Normal); RDW Coefficient of Variation 13.9 % (11.5-14.5); RDW Standard Deviation 43.5 fL (36.4-46.3); Red Blood Count 3.01 M/uL (3.93-5.22); White Blood Count 1.15 K/ul (4.8-10.8)
[2022-04-19] MEDS: ISOSORBIDE MONO EXTENDED REL 30 MG TABCR PO SCH (09:06)
[2022-04-19] MEDS: PANTOprazole 40 MG TAB PO SCH ×2 (09:06→20:53)
[2022-04-19] MEDS: FAMOTIDINE 20 MG TAB PO SCH ×2 (09:07→20:53)
[2022-04-19] MEDS: hydrALAZINE HCL 25 MG TAB PO SCH ×3 (09:07→20:54)
[2022-04-19] MEDS: ASPIRIN 81 MG ECTAB PO SCH (09:07)
[2022-04-19] MEDS: METOPROLOL SUCC 25MG EXT REL TAB PO SCH (09:07)
[2022-04-19] MEDS: AZELASTINE HCL 0.1% NASAL 200 SPRAYS/27,400 MCG BTL SCH (09:08)
[2022-04-19 09:33] LABS: Reticulocyte % 1.1 % (0.5-2.0); Reticulocytes # 0.03 10^6/uL (0.02-0.10)
[2022-04-19 10:17] LABS: Folate (Folic Acid) > 22.30 ng/ml (>5.38); Vitamin B12 502 pg/ml (180-914)
[2022-04-19 10:22] LABS: Ferritin 175.8 ng/ml (8-388)
--- NOTE | 2022-04-19 13:51 | Medical Student Progress Note ---
Date of Service April 19, 2022 Assessment & Plan (1) Nausea: Plan: Nausea - Chief differentials include PUD vs. functional dyspepsia vs. abdominal wall trigger points. - Zofran PRN - Ativan 0.25mg PO prior to meals - Combo of pepcid, protonix, viscous lidocaine, tums, and maalox was given yesterday (04/18) for possibility of PUD. Seems to have alleviated symptoms somewhat, as she experienced less nausea/discomfort today. - advanced to regular food today - tolerated well and ate more adequate amounts, but still undereating for herself. - Discussed with patient option to treat all 3 highest diagnoses in order to help her gain symptomatic relief. - PUD - Given some relief from PUD medication regimen and history of PUD, will continue to treat with protonix BID (has been taking it once per day at home for last couple of months). Will also order EGD inpatient vs. outpatient -- we will consult GI to see if they will do her EGD inpatient. If not, we will coordinate with [facility] to ensure she receives her EGD very shortly after discharge. - Functional dyspepsia - We will begin treating with cyproheptadine. - Abdominal wall trigger points - On exam by attending yesterday, patient has palpable trigger points. We will perform trigger point injections tomorrow morning. Informed patient it may take days to a week to feel relief if effective. Pancytopenia - malnutrition vs. malignancy vs. infection - WBC 1.15, Plt 96, Hgb 8.8 (yesterday 9.5) - reticulocyte count inappropriately WNL at 1.1 - low iron, IBC, and transferrin with normal ferritin - viral labs for EBV and CMV pending - peripheral smear cytology normal, decreasing concern for malignant process in blood - seems most likely seems due to malnutrition - Plan to consult heme/onc today for further consultation and guidance. Anemia - Hgb down to 8.8 from 9.5 - asymptomatic - continue monitoring THOMAS - prerenal depletion vs. intrinsic - Cr on admission 2.54 - Cr today 2.40 - FeNa 2.3%- lending itself to intrinsic renal (ATN) - Also likely prerenal depletion contributing due to chronic inadequate PO intake - Continue LR 100 mL/hr for hydration Hematuria - intrinsic renal vs. post renal (obstructive) - possibility of intrinsic renal discussed above. - plan for outpatient cystoscopy CAD, HTN, GERD, HLD, Hypothyroidism per chronic outpatient management. (2) Pancytopenia: (3) THOMAS (acute kidney injury): (4) Hematuria: (5) CAD (coronary artery disease): (6) Peptic ulcer disease: (7) Hypertension: Hypertension type: essential hypertension Qualified Code(s): I10 - Essential (primary) hypertension Plan Dispo: Continue inpatient management Diet: moved to normal diet Admission and Anticipated Discharge Date Admission Date: April 17, 2022 Subjective Prior to my evaluation (per prior hospitalist note) 04/18/2022: Pt explains to me that she has had difficulty eating and feeling nauseated for multiple months. This seems to have gotten worse, getting to the point yesterday where she "could not even eat applesauce." The pt states that she is often hungry but begins to eat and feels as though she will throw up so she stops eating. She has not actually vomited. She describes that the food she eats does not take right (metallic like). She generally has normal BM but did have some loose stool/diarrhea yesterday. She also explains that she gets headaches semi frequently. She denies chest pain, SOB, visual changes, and obvious bleeding. She explains to me that she recently had a melanoma excised from her back. She also has a hx of BCC. No other personal cancer hx. 04/19/2022: I evaluated Isadora today, who reports she is feeling about the same as yesterday. She is still experiencing moments of nausea, but describes these as moments where she "feels the nausea coming." She was able to eat her soup last night for dinner and cereal, OJ, and tea for breakfast this morning with no nausea. She does report this is more than she has been able to eat at home. She attempted to eat half of her yogurt and pudding, but then began feeling like she was going to gag if she took another bite. We gave medications for PUD yesterday, and she doesn't notice much of a difference but she doesn't "think they're hurting." Endorses feeling weak and fatigued. Denies vomiting, abdominal pain, chest pain, SOB, headache, congestion, dizziness, or lightheadedness. She has still noticed a red tint to her urine but it is not as dark as before. She had a few BM yesterday and she did not notice any BRB or darkened color. Physical Exam Constitutional: Well-appearing, resting comfortable in bed. Not in acute distress. Eyes: No conjunctival discharge or abnormality. Sclerae anicteric. ENMT: Oral mucosa pink and moist. Trachea midline. Neck: No thyromegaly. No cervical lymphadenopathy. Normal ROM. Respiratory: Clear to auscultation bilaterally. No rhonchi or wheezes. Cardiovascular: Regular rate and rhythm. No murmurs, rubs, gallops. 2+ radial, DP, and PT pulses. No LE edema. Gastrointestinal (Abdomen): Bowel sounds present. No tenderness to palpation. Skin: No rashes. Warm & dry. Neurologic: Alert & oriented x 3. Psychiatric: Appropriate mood & affect. Results & Data ([facility]) Vital Signs (Past 12 Hours) Vital Signs Temp Pulse Resp BP Pulse Ox O2 Del Method 04/19/22 08:19 36.6 C 81 18 158/82 H 91 Room Air Laboratory Results My interpretations: CBC: leukopenic at 1.15, RBC low at 3.01, anemic at 8.8, Hct low at 25.9, thrombocytopenic low at 96 CMP: Cr elevated at 2.40 but stable Iron Studies: Iron low at 29, unsaturated IBC low at 146, transferrin low at 120, ferritin normal Vitamin B12 and folate normal CMV and EBV serology studies pending
--- NOTE | 2022-04-19 19:09 | Billing Data ---
Date of Service April 19, 2022 Coding Level of Care Code 37593 Prolonged Care (int'l)
--- NOTE | 2022-04-19 19:09 | Billing Data ---
Date of Service April 19, 2022 Coding Level of Care Code 53062 Subseq Hosp Care Lvl 3
[2022-04-19] MEDS: CYPROHEPTADINE HCL 4 MG TAB PO SCH (20:52)
[2022-04-19] MEDS: EZETIMIBE 10 MG TABLET PO SCH (20:53)
[2022-04-20] MEDS: ALUMINUM/MAGNESIUM SUSP 30 ML UDC PO SCH ×4 (04:39→22:30)
[2022-04-20] MEDS: LEVOTHYROXINE SODIUM 50 MCG TABLET PO SCH (05:53)
[2022-04-20 08:14] LABS: BUN Creatinine Ratio 9.1 (10-20); Calcium 8.3 mg/dl (8.5-10.1); Creatinine Clr Calc Pharmacy 14.3 ml/min; Est GFR (African American) 20.2 ml/min; Est GFR (Non-African American) 17.5 ml/min; Magnesium 1.9 mg/dl (1.7-2.4); Phosphorus 2.5 mg/dl (2.5-4.9); Potassium 3.6 mmol/L (3.5-5.1)
[2022-04-20] MEDS: LACTATED RINGER'S 1,000 ML IV SCH ×2 (08:40→17:20)
[2022-04-20] MEDS: ASPIRIN 81 MG ECTAB PO SCH (08:41)
[2022-04-20] MEDS: AZELASTINE HCL 0.1% NASAL 200 SPRAYS/27,400 MCG BTL SCH (08:41)
[2022-04-20] MEDS: hydrALAZINE HCL 25 MG TAB PO SCH ×3 (08:42→20:13)
[2022-04-20] MEDS: PANTOprazole 40 MG TAB PO SCH ×2 (08:42→20:13)
[2022-04-20] MEDS: CYPROHEPTADINE HCL 4 MG TAB PO SCH ×4 (08:43→20:13)
[2022-04-20] MEDS: METOPROLOL SUCC 25MG EXT REL TAB PO SCH (08:43)
[2022-04-20] MEDS: ISOSORBIDE MONO EXTENDED REL 30 MG TABCR PO SCH (08:43)
[2022-04-20] MEDS: FAMOTIDINE 20 MG TAB PO SCH ×2 (08:44→20:12)
[2022-04-20 09:08] LABS: Hemoglobin 8.6 g/dl (12.0-16.0); Mean Corpuscular Hemoglobin 28.6 pg (25.0-34.0); Mean Corpuscular Hgb Conc 33.1 g/dL (32.0-36.0); Mean Corpuscular Volume 86.4 fL (80.0-100.0); Mean Platelet Volume 11.5 fL (9.4-12.3); Platelet Count 98 K/uL (130-400); RDW Coefficient of Variation 13.7 % (11.5-14.5); RDW Standard Deviation 42.5 fL (36.4-46.3); Red Blood Count 3.01 M/uL (3.93-5.22); White Blood Count 1.23 K/ul (4.8-10.8)
[2022-04-20 09:11] LABS: Ovalocytes 1+
[2022-04-20 09:12] LABS: Basophils # (auto) 0.02 K/uL (0-0.2); Basophils % (auto) 1.6 %; Eosinophils # (auto) 0.03 K/uL (0-0.50); Eosinophils % (auto) 2.4 %; Immature Granulocytes # (auto) 0.01 K/uL (0.00-0.02); Immature Granulocytes % (auto) 0.8 %; Lymphocytes # (auto) 0.46 K/uL (1.2-3.4); Lymphocytes % (auto) 37.4 %; Monocytes # (auto) 0.09 K/uL (0.24-0.82); Monocytes % (auto) 7.3 %; Neutrophils # (auto) 0.62 K/uL (1.4-6.5); Neutrophils % (auto) 50.5 %
[2022-04-20] MEDS ORDERED: LIDOCAINE 2% JELLY 5 ML TUBE EXT SCH (10:00)
--- NOTE | 2022-04-20 10:33 | Hospitalist Progress Note ---
Date of Service April 20, 2022 Assessment & Plan (1) THOMAS (acute kidney injury): Plan: Pt is a 76 yo female with PMH of HTN, CAD, HLD, hypothyroidism, and PUD presenting with complaints of nausea, inability to eat, and weight loss that has been progressing over the past several months. Nausea - progressive PUD vs. functional dyspepsia vs. malignancy vs. trigger points - CTAP (non contrast) showed stable simple right renal cyst and small (up to 3mm) pulmonary nodules in lung bases - Zofran PRN - Ativan 0.25mg PO prior to meals - Combo of pepcid, protonix, viscous lidocaine, tums, and maalox helped symptoms minimally, will continue - outpatient EGD most likely - began cyproheptadine (04/19) for functional dyspepsia at 2 mg QID - trigger point injections today or tomorrow Failure to thrive/weight loss - monitor while hospitalized - before d/c, develop nutrition plan for at home to ensure nutrition stability/improvement Pancytopenia - malnutrition vs. malignancy vs. infection - WBC 1.23, Plt 98, Hgb 8.6 (yesterday 8.8) - appears non infectious (procal and CRP normal) - reticulocyte count inappropriately WNL at 1.1 - low iron, IBC, and transferrin with normal ferritin - blood cx no growth at 48 hrs - viral labs pending - peripheral smear cytology normal - seems most likely d/t lack of PO intake - consult hem/onc Anemia - Hgb down to 8.6 from 9.5 (04/19) - asymptomatic - continue monitoring THOMAS - prerenal depletion vs. intrinsic - Cr on admission 2.54 - Cr today 2.54, this Cr could remain and represent a progressive of kidney disease - BUN/Cr= 9.1 - FeNa 2.3%- lending itself to intrinsic renal (ATN) - LR 100 mL/hr - plan to continue hydration Hematuria - intrinsic renal vs. post renal (obstructive) - 3+ on UA, 2+ protein, neg for infection, no casts - FeNa 2.3%- lending itself to intrinsic renal (ATN) - continue to monitor - consider urology consult - plan for outpatient cystoscopy CAD - s/p stent placement to LAD in 2017 -Continue ASA 81mg PO daily -Continue Zetia 10mg PO daily -Continue Metoprolol HTN -Continue Isosorbide and Hydralazine GERD - home regimen 40 mg protonix daily - increased to 40 mg BID d/t concern for progression of PUD HLD -Continue ezetimibe Hypothyroidism -Continue Synthroid 50mcg alternating with 75mcg PO daily -TSH slightly elevated at 4.635 (2) Nausea: (3) Hematuria: (4) CAD (coronary artery disease): (5) GERD (gastroesophageal reflux disease): (6) Hyperlipidemia: (7) Hypothyroidism: Plan Diet: regular Fluids/electrolytes: LR 100 mL/hr consults: hem/onc Dispo: med Admission and Anticipated Discharge Date Admission Date: April 17, 2022 Supervising Physician Co-Signing Physician Notes I personally examined the patient and verified all delacruz points of history and exam, discussed case, and agree with decision making with Dr Weaver Feels about the same. Vitals noted, in general she is awake and alert pleasant no distress. HEENT normocephalic atraumatic mucous membranes moist. Breathing unlabored no accessory muscle use good effort. Abdomen still with at least 2 palpable trigger points in the left upper abdominal region. Procedure note for trigger point injections. Timeout performed, informed consent reiterated, risk/benefits discussed with patient and daughter. Patient agreed to proceed with trigger point injections for purpose of hopefully alleviating nausea. Area cleansed with Betadine and alcohol. Sterile 1 inch 22-gauge needle used. 2 separate discrete trigger points were identified by palpation and injected successfully with 1 cc of lidocaine each. Patient tolerated well. Area dressed with Band-Aid afterwards. Intractable nausea and weight lossdifferential ranges from peptic ulcer disease to trigger points to functional dyspepsia to otherfor now we will give aggressive acid suppression and follow-up for symptom improvement. trigger point injection done today, started cyproheptadine, consider repeat EGD. dehydration, ARF - probably prerenal w some ATN -given that her creatinine has leveled offunfortunately this may be her new baseline for a while. Ensure euv olemia. doubt uremic - no tremors/etc pancytopenia - peripheral smear reassuring. ?nutritional deficiency -labs do not entirely corroborate thisask hematology to see acute calorie malnutrition otherwise as above Subjective Pt is a 76 yo female with PMH of HTN, CAD, HLD, hypothyroidism, and PUD presenting with complaints of nausea, inability to eat, and weight loss. 04/18/2022: Pt explains to me that she has had difficulty eating and feeling nauseated for multiple months. This seems to have gotten worse, getting to the point yesterday where she "could not even eat applesauce." The pt states that she is often hungry but begins to eat and feels as though she will throw up so she stops eating. She has not actually vomited. She describes that the food she eats does not take right (metallic like). She generally has normal BM but did have some loose stool/diarrhea yesterday. She also explains that she gets headaches semi frequently. She denies chest pain, SOB, visual changes, and obvious bleeding. She explains to me that she recently had a melanoma excised from her back. She also has a hx of BCC. No other personal cancer hx. 04/19/2022: Pt feeling slightly improved today. She says that her dinner was good last night without much nausea or gagging except for chocolate pudding. She feels as though she cannot eat as much as she feels she should be able to. She also seemed to tolerate regular food for lunch today, but again not as much as she feels she should be eating. Her urine had been not as dark red as before and her most recent urination was yellow. She had a few BM yesterday and she did not notice any BRB or darkened color. She notes that her most recent BM was yellow in color. She denies any chest pain, SOB, leg pain, and abdominal pain today. 04/20/2022: Pt states that dinner was worse than lunch yesterday. With dinner, she could only have a few bites of dinner before stopping d/t nausea. Her urine has not been red tinged. She denies any new pains like chest pain, SOB, and leg pain. Physical Exam Constitutional: NAD. Vitals WNL. Eyes: no conjunctival abnormality Respiratory: CTA bilaterally. No rhonchi, wheezing, or crackles. Non labored breathing. Cardiovascular: RRR. No murmur noted. No LL edema. Gastrointestinal (Abdomen): Grossly nontender, +BS. No masses noted. Skin: no rashes, warm and dry Psychiatric: Alert. Mood and affect congruent. Results & Data Results & Data ([facility]) Vital Signs (Past 12 Hours) Vital Signs Temp Pulse Resp BP Pulse Ox O2 Del Method 04/20/22 07:09 Room Air 04/20/22 07:02 37.5 C 68 18 168/71 H 91 Room Air 04/19/22 22:33 36.9 C 72 16 155/76 H 92 Room Air Resident Activity Tracking Resident Involvement: Resident Care Provided Care Provided: Adult Hospital Medicine (1) GERD (gastroesophageal reflux disease) Esophagitis presence: esophagitis presence not specified Qualified Code(s): K21.9 - Gastro-esophageal reflux disease without esophagitis
[2022-04-20] MEDS ORDERED: LIDOCAINE 1% LOCAL 20 ML VIAL INJ ONE ×2 (11:46→16:45)
[2022-04-20] MEDS: ACETAMINOPHEN 325 MG TAB PO PRN (14:24)
[2022-04-20] MEDS ORDERED: LIDOCAINE 2% JELLY 5 ML TUBE ONE (16:31)
[2022-04-20] MEDS: EZETIMIBE 10 MG TABLET PO SCH (20:14)
[2022-04-21] MEDS ORDERED: COUGH DROP (SUGAR FREE) LOZ 24 LOZ/1 BOX BUCCAL ONE (03:12)
[2022-04-21] MEDS: LACTATED RINGER'S 1,000 ML IV SCH ×2 (03:13→13:24)
[2022-04-21] MEDS: LEVOTHYROXINE SODIUM 75 MCG TABLET PO SCH (04:40)
[2022-04-21] MEDS: ALUMINUM/MAGNESIUM SUSP 30 ML UDC PO SCH ×4 (04:40→21:01)
[2022-04-21 08:19] LABS: BUN Creatinine Ratio 8.7 (10-20); Calcium 8.6 mg/dl (8.5-10.1); Creatinine Clr Calc Pharmacy 14.4 ml/min; Est GFR (African American) 20.4 ml/min; Est GFR (Non-African American) 17.6 ml/min; Hematocrit (blood only) 26.7 % (34.1-44.9); Hemoglobin 9.1 g/dl (12.0-16.0); Mean Corpuscular Hemoglobin 28.7 pg (25.0-34.0); Mean Corpuscular Hgb Conc 34.1 g/dL (32.0-36.0); Mean Corpuscular Volume 84.2 fL (80.0-100.0); Mean Platelet Volume 11.2 fL (9.4-12.3); Platelet Count 105 K/uL (130-400); Potassium 3.7 mmol/L (3.5-5.1); RDW Coefficient of Variation 13.7 % (11.5-14.5); RDW Standard Deviation 42.5 fL (36.4-46.3); Red Blood Count 3.17 M/uL (3.93-5.22); White Blood Count 1.05 K/ul (4.8-10.8)
[2022-04-21 08:21] LABS: Basophils # (auto) 0.02 K/uL (0-0.2); Basophils % (auto) 1.9 %; Eosinophils # (auto) 0.01 K/uL (0-0.50); Immature Granulocytes # (auto) 0.01 K/uL (0.00-0.02); Lymphocytes # (auto) 0.45 K/uL (1.2-3.4); Lymphocytes % (auto) 42.9 %; Monocytes # (auto) 0.05 K/uL (0.24-0.82); Monocytes % (auto) 4.8 %; Neutrophils # (auto) 0.51 K/uL (1.4-6.5); Neutrophils % (auto) 48.4 %; Platelet Estimate Normal (Normal)
--- NOTE | 2022-04-21 08:28 | Medical Student Progress Note ---
Date of Service April 21, 2022 Assessment & Plan (1) Nausea: Plan: Isadora is a 76 year old female with PMH of HTN, CAD, HLD, hypothyroidism, and PUD who presented 04/17/22 with chief concern of nausea, lack of appetite, and weight loss that has progressed over the last couple months. Nausea - Chief differentials include PUD vs. functional dyspepsia vs. abdominal wall trigger points. - Zofran PRN - Combo of pepcid, protonix, viscous lidocaine, tums, and maalox was given 04/18 for possibility of PUD. Seems to have alleviated symptoms somewhat, as she experienced less nausea/discomfort after. - Now receiving regular diet - PUD - Given some relief from PUD medication regimen and history of PUD, will continue to treat with protonix BID (has been taking it once per day at home for last couple of months). Outpatient EGD most likely. We will coordinate with [facility] to ensure she receives her EGD very shortly after discharge. - Functional dyspepsia - began cyproheptadine (04/19) 2 mg PO QID - Abdominal wall trigger points - On exam by attending, patient has palpable trigger points. Trigger point injections performed 04/20. Informed patient it may take days to a week to feel relief if effective. - Continue to monitor. Diarrhea - Patient experienced 4 episodes of diarrhea last night into this morning, which is a new symptom. On talking with her daughter, she has experienced fluctuation between constipation and diarrhea chronically. - Overflow diarrhea vs. concern for C-diff - Could be overflow diarrhea as patient reports she had not passed a bowel movement since days prior to presenting in hospital. - C diff culture ordered for patient to use next time she passes a bowel movement. Pancytopenia - malnutrition vs. malignancy vs. infection - WBC 1.05, Plt 105, Hgb 9.1 - low iron, IBC, and transferrin with normal ferritin - viral labs for EBV consistent with past infection. CMV pending. - peripheral smear cytology normal, decreasing concern for malignant process in blood - seems most likely due to malnutrition - Consulted heme/onc for further consultation and guidance. They will evaluate outpatient, but in the interim they recommended orders: - Copper and zinc ordered to assess as potential cause of cytopenia. - CT chest recommended because original CT abdomen/pelvis (non contrast, on 04/17) showed small (up to 3mm) pulmonary nodules in lung bases - CT chest today (04/21) showed small pleural effusions with dependent atelectasis (new since 04/17) and scattered foci suggestive of pulmonary edema. Pleural Effusions/Pulmonary Edema - Stopped IV fluids to mitigate pleural effusions and pulmonary edema. Patient is not experiencing SOB or orthopnea. - Radiology recommended radiographic follow-up/6 month f/u chest CT for re- evaluation. Anemia - Hgb 9.1 - asymptomatic - continue monitoring THOMAS - prerenal depletion vs. intrinsic - Cr on admission 2.54 - Cr today 2.52 - FeNa 2.3%- lending itself to intrinsic renal (ATN) - Also likely prerenal depletion contributing due to chronic inadequate PO intake - Stopped LR 100 mL/hr d/t pulmonary edema and pleural effusions, and encouraged fluid intake. - Goal for today is to assess patient's PO intake to avoid exacerbation of THOMAS or failure to thrive. If she is eating and drinking adequately, we can begin to consider discharge. Hematuria - intrinsic renal vs. post renal (obstructive) - possibility of intrinsic renal discussed above. - plan for outpatient cystoscopy CAD, HTN, GERD, HLD, Hypothyroidism per chronic outpatient management. (2) Pancytopenia: (3) THOMAS (acute kidney injury): (4) Hematuria: (5) CAD (coronary artery disease): (6) Peptic ulcer disease: (7) Hypertension: Hypertension type: essential hypertension Qualified Code(s): I10 - Essential (primary) hypertension Plan Dispo: Continue inpatient management pending adequate PO intake and management/etiology of patient's diarrhea. Diet: normal diet Admission and Anticipated Discharge Date Admission Date: April 17, 2022 Supervising Attestation Patient seen and examined, chart reviewed, case discussed with Kathie Hunt and Ashlee Rosen and I agree with the assessment and plan as above except as otherwise noted Labs and images reviewed 76-year-old female who presents with nausea, inadequate p.o. intake, and weight loss. This is been gradually progressive and has early satiety without vomiting. She has been slowly progressing since 04/18 but then felt that she had difficulty with dinner 04/20 and did not eat much lunch 04/21. No BMs. Urine is clear. She seen at the bedside with her daughter present. Did discuss that her pancytopenia was suspected nutritional, but does have an additional broad work- up pending. Discussed that she will have outpatient follow-up for EGD if she is able to clinically progress, and outpatient follow-up for hematuria with cystoscopy. At bedside assessment lungs are clear, heart rate is regular, breathing is unlabored, skin is warm and dry. Abdomen is nontender to palpation, and without guarding/rebound. Nausea/vomiting/poor p.o. intake ? Functional, trigger points, peptic ulcer disease. We will continue medical management for dyspepsia with cyproheptadine, patient did improve following trigger point injections initially but these may take several days to work fully. Continue Pepcid, Protonix, simethicone/hydroxide, and may use prn antiemetics as needed Agree with above Pancytopenia Neutropenic, continue neutropenic precautions. Patient does have a normal ferritin/transferrin Heme-onc following, appreciate recommendations. Did recommend CT A/P for characterization of nodules, these ideally would be done with contrast but due to her baseline creatinine now being unknown and elevated from her prior to defer contrast at this time and discussed the patient she may need repeat imaging in the future. Pulmonary edema Repeat CT did show pleural effusions and edema suggestive of developing fluid overload, fluids discontinued. With IV fluids she has a total 10 L, unmeasured voids make net balance inaccurate. Discontinue fluids at this time. Defer Lasix at this time Adin Muir is a 76 year old female with PMH of HTN, CAD, HLD, hypothyroidism, and PUD who presented 04/17/22 with chief concern of nausea, lack of appetite, and weight loss that has progressed over the last couple months. Prior to my evaluation (per prior hospitalist note)04/18/2022: Pt explains to me that she has had difficulty eating and feeling nauseated for multiple months. This seems to have gotten worse, getting to the point yesterday where she "could not even eat applesauce." The pt states that she is often hungry but begins to eat and feels as though she will throw up so she stops eating. She has not actually vomited. She describes that the food she eats does not take right (metallic like). She generally has normal BM but did have some loose stool/diarrhea yesterday. She also explains that she gets headaches semi frequently. She denies chest pain, SOB, visual changes, and obvious bleeding. She explains to me that she recently had a melanoma excised from her back. She also has a hx of BCC. No other personal cancer hx. 04/19/2022: I evaluated Isadora today, who reports she is feeling about the same as yesterday. She is still experiencing moments of nausea, but describes these as moments where she "feels the nausea coming." She was able to eat her soup last night for dinner and cereal, OJ, and tea for breakfast this morning with no nausea. She does report this is more than she has been able to eat at home. She attempted to eat half of her yogurt and pudding, but then began feeling like she was going to gag if she took another bite. We gave medications for PUD yesterday, and she doesn't notice much of a difference but she doesn't "think they're hurting." Endorses feeling weak and fatigued. Denies vomiting, abdominal pain, chest pain, SOB, headache, congestion, dizziness, or lightheadedness. She has still noticed a red tint to her urine but it is not as dark as before. She had a few BM yesterday and she did not notice any BRB or darkened color. 04/20/2022: Patient was evaluated by inpatient hospitalist team. Per hospitalist note, she states that dinner was worse than lunch yesterday. With dinner, she could only have a few bites of dinner before stopping d/t nausea. Her urine has not been red tinged. She denies any new pains like chest pain, SOB, and leg pain. 04/21/22: I evaluated the patient. Reports she has not eaten yet at time of evaluation, so she is unsure if breakfast will make her feel nauseous. She began having a cough and loose stools overnight. She has experienced 4 episodes of loose stools from the middle of the night through 9 AM this morning. She experienced transient abdominal pain during one episode of passing stool. She does report relief of discomfort after voiding. Otherwise, she does not feel nauseous and is not experiencing abdominal pain or vomiting. She does report her urine is dark and red-tinged again. She also began experiencing a non- productive, dry cough in the middle of the night. Cough drops and sitting up brought relief. Denies congestion, rhinorrhea, SOB, chest pain. Does report a PMH of partial colon resection about 30 years ago due to chronic constipation/colonic stenosis. 04/21/22 afternoon: We re-evaluated the patient and spoke with her daughter. She has not passed any more bowel movements. She has now voided clear urine without blood. She did not eat much of her lunch. Physical Exam Constitutional: Well appearing. Resting comfortably in chair. Not in acute distress. Eyes: No conjunctival drainage or abnormality. Sclerae anicteric. ENMT: Oral mucosa pink and moist. Trachea midline. Respiratory: Lungs clear to auscultation bilaterally in all bridges. No rhonchi, rales, wheezes. Deep inspiration prompts her mild dry cough on exam. Cardiovascular: Regular rate and rhythm. No murmurs, rubs, gallops. No carotid bruits. Gastrointestinal (Abdomen): Grossly nontender to palpation. Bowel sounds present. Skin: Warm and dry. No rashes or lesions. Neurologic: Alert & oriented to person, place, time, situation. Psychiatric: Mood and affect appropriate. Results & Data ([facility]) Vital Signs (Past 12 Hours) Vital Signs Temp Pulse Resp BP Pulse Ox O2 Del Method 04/21/22 07:28 Room Air 04/21/22 05:45 37.2 C 72 16 180/82 H 90 Room Air Laboratory Results Laboratory Results - last 24 hr 04/19/22 04/21/22 04/21/22 09:06 07:39 07:39 WBC 1.05 L RBC 3.17 L Hgb 9.1 L Hct 26.7 L MCV 84.2 MCH 28.7 MCHC 34.1 RDW Std Deviation 42.5 RDW Coeff of Jarrod 13.7 Plt Count 105 L MPV 11.2 Immature Gran % (Auto) 1.0 Neut % (Auto) 48.4 Lymph % (Auto) 42.9 Hemphill % (Auto) 4.8 Eos % (Auto) 1.0 Baso % (Auto) 1.9 Neut # (Auto) 0.51 L* Lymph # (Auto) 0.45 L Hemphill # (Auto) 0.05 L Eos # (Auto) 0.01 Baso # (Auto) 0.02 Immature Gran # (Auto) 0.01 Platelet Estimate Normal Sodium 139 Potassium 3.7 Chloride 107 Carbon Dioxide 25 Anion Gap 7 BUN 22 Creatinine 2.52 H Est Cr Clr Drug Dosing 14.4 Est GFR ( Amer) 20.4 Est GFR (Non-Af Amer) 17.6 BUN/Creatinine Ratio 8.7 L Glucose 85 Calcium 8.6 EBV Capsid Ag IgG Ab 323.00 H EBV Capsid Ag IgM Ab <36.00 EBV Nuclear Antigen Ab 23.60 H EBV Antibody Interp SEE NOTE Diagnostic Findings Chest CT 04/21/22 11:07 CT SCAN OF THE CHEST WITHOUT IV CONTRAST CLINICAL HISTORY: Pulmonary nodule follow-up. COMPARISON STUDY: Chest CT dated 12/03/2020. Abdominal CT dated 04/17/2022. TECHNIQUE: CT scan of the thorax was performed from the thoracic inlet to the upper abdomen. Images are reviewed in the axial, sagittal, and coronal planes. IV contrast was not administered for this examination as per the referring clinician. A dose lowering technique was utilized adhering to the principles of ALARA. CT DOSE: 209.67 mGy.cm FINDINGS: Thyroid: Atrophic and heterogeneous. Thoracic aorta: There is atherosclerotic calcification of the thoracic aorta, which is normal in caliber and demonstrates standard 3-vessel arch anatomy. Heart: The heart is enlarged and without pericardial effusion. The coronary arteries are densely calcified. There is diminished attenuation of the cardiac blood pool as compared to the myocardium suggesting anemia. Lungs and pleural spaces: There are small pleural effusions with dependent atelectasis. Intralobular septal thickening is seen throughout both lungs. Foci of patchy groundglass change in both lungs suggests mild pulmonary edema. The trachea and central airways are clear. A 3 mm right lower lobe pulmonary nodule seen on image #221 cm in suspicion. Mediastinum: There is no mediastinal lymphadenopathy. Judith: Not well assessed without IV contrast. Axillae: There is no axillary lymphadenopathy. Upper abdomen: There are calcified splenic granulomas. Partially visualized upper abdominal viscera is otherwise grossly unremarkable. Skeletal structures: The skeletal structures are osteopenic. Mild degenerative change is noted in the shoulders and thoracic spine. No lytic or blastic bony lesions are seen. IMPRESSION: 1. Cardiomegaly without evidence of congestive failure. 2. Small pleural effusions with dependent atelectasis. This is new from 04/17/2022. 3. Scattered foci of patchy groundglass change suggest pulmonary edema. Clinical correlation will be required and radiographic follow-up to resolution is recommended. 4. Pleural effusions and pulmonary edema obscures the evaluation for pulmonary nodules. A six-month follow-up chest CT is recommended for reevaluation. 5. Additional findings as above. ACT 112: Negative or not required by law. Electronically signed by: Baljeet El M.D. 04/21/2022 1:14 PM
[2022-04-21] MEDS: hydrALAZINE HCL 25 MG TAB PO SCH ×3 (10:01→21:00)
[2022-04-21] MEDS: CYPROHEPTADINE HCL 4 MG TAB PO SCH ×4 (10:01→20:59)
[2022-04-21] MEDS: FAMOTIDINE 20 MG TAB PO SCH ×2 (10:02→21:00)
[2022-04-21] MEDS: PANTOprazole 40 MG TAB PO SCH ×2 (10:02→21:00)
[2022-04-21] MEDS: METOPROLOL SUCC 25MG EXT REL TAB PO SCH (10:03)
[2022-04-21] MEDS: ASPIRIN 81 MG ECTAB PO SCH (10:03)
[2022-04-21] MEDS: ISOSORBIDE MONO EXTENDED REL 30 MG TABCR PO SCH (10:03)
[2022-04-21] MEDS: AZELASTINE HCL 0.1% NASAL 200 SPRAYS/27,400 MCG BTL SCH (10:04)
--- NOTE | 2022-04-21 13:16 | CT Scan Report ---
CT SCAN OF THE CHEST WITHOUT IV CONTRAST CLINICAL HISTORY: Pulmonary nodule follow-up. COMPARISON STUDY: Chest CT dated 12/03/2020. Abdominal CT dated 04/17/2022. TECHNIQUE: CT scan of the thorax was performed from the thoracic inlet to the upper abdomen. Images are reviewed in the axial, sagittal, and coronal planes. IV contrast was not administered for this ex amination as per the referring clinician. A dose lowering technique was utilized adhering to the [place] of ADRIANA. CT DOSE: 209.67 mGy.cm FINDINGS: Thyroid: Atrophic and heterogeneous. Thoracic aorta: There is atherosclerotic calcification of the thoracic aorta, which is normal in mercedes tiesha and demonstrates standard 3-vessel arch anatomy. Heart: The heart is enlarged and without pericardial effusion. The coronary arteries are densely calc ified. There is diminished attenuation of the cardiac blood pool as compared to the myocardium sugges ting anemia. Lungs and pleural spaces: There are small pleural effusions with dependent atelectasis. Intralobular septal thickening is seen throughout both lungs. Foci of patchy groundglass change in both lungs sugg ests mild pulmonary edema. The trachea and central airways are clear. A 3 mm right lower lobe pulmona ry nodule seen on image #221 cm in suspicion. Mediastinum: There is no mediastinal lymphadenopathy. Judith: Not well assessed without IV contrast. Axillae: There is no axillary lymphadenopathy. Upper abdomen: There are calcified splenic granulomas. Partially visualized upper abdominal viscera i s otherwise grossly unremarkable. Skeletal structures: The skeletal structures are osteopenic. Mild degenerative change is noted in the shoulders and thoracic spine. No lytic or blastic bony lesions are seen. IMPRESSION: 1. Cardiomegaly without evidence of congestive failure. 2. Small pleural effusions with dependent atelectasis. This is new from 04/17/2022. 3. Scattered foci of patchy groundglass change suggest pulmonary edema. Clinical correlation will be required and radiographic follow-up to resolution is recommended. 4. Pleural effusions and pulmonary edema obscures the evaluation for pulmonary nodules. A six-month f ollow-up chest CT is recommended for reevaluation. 5. Additional findings as above. ACT 112: Negative or not required by law. Electronically signed by: Baljeet El M.D. 04/21/2022 1:14 PM
[2022-04-21] MEDS: ACETAMINOPHEN 325 MG TAB PO PRN (13:49)
--- NOTE | 2022-04-21 18:21 | Billing Data ---
Date of Service April 21, 2022 Coding Level of Care Code 13330 Subseq Hosp Care Lvl 2
[2022-04-21] MEDS: EZETIMIBE 10 MG TABLET PO SCH (21:00)
[2022-04-21] MEDS: SUCRALFATE 1 GM/10 ML UDC PO SCH (21:16)
[2022-04-22] MEDS: ALUMINUM/MAGNESIUM SUSP 30 ML UDC PO SCH ×3 (04:38→15:38)
[2022-04-22] MEDS: LEVOTHYROXINE SODIUM 50 MCG TABLET PO SCH (06:03)
[2022-04-22 07:38] LABS: BUN Creatinine Ratio 8.3 (10-20); Calcium 8.2 mg/dl (8.5-10.1); Creatinine Clr Calc Pharmacy 13.7 ml/min; Est GFR (African American) 19.1 ml/min; Est GFR (Non-African American) 16.5 ml/min; Potassium 3.3 mmol/L (3.5-5.1)
[2022-04-22 07:43] LABS: Hematocrit (blood only) 25.9 % (34.1-44.9); Hemoglobin 8.8 g/dl (12.0-16.0); Mean Corpuscular Hemoglobin 28.5 pg (25.0-34.0); Mean Corpuscular Volume 83.8 fL (80.0-100.0); Mean Platelet Volume 11.3 fL (9.4-12.3); Platelet Count 91 K/uL (130-400); RDW Coefficient of Variation 13.8 % (11.5-14.5); RDW Standard Deviation 42.4 fL (36.4-46.3); Red Blood Count 3.09 M/uL (3.93-5.22); White Blood Count 0.96 K/ul (4.8-10.8)
[2022-04-22] MEDS ORDERED: POTASSIUM CHLORIDE CRTAB 20 MEQ TABCR PO ONE (07:48)
[2022-04-22] MEDS: PANTOprazole 40 MG TAB PO SCH ×2 (07:56→21:14)
[2022-04-22] MEDS: ASPIRIN 81 MG ECTAB PO SCH (07:56)
[2022-04-22] MEDS: SUCRALFATE 1 GM/10 ML UDC PO SCH ×4 (07:57→21:15)
[2022-04-22] MEDS: hydrALAZINE HCL 25 MG TAB PO SCH ×3 (07:57→21:14)
[2022-04-22] MEDS: FAMOTIDINE 20 MG TAB PO SCH ×2 (07:57→21:14)
[2022-04-22] MEDS: AZELASTINE HCL 0.1% NASAL 200 SPRAYS/27,400 MCG BTL SCH (07:57)
[2022-04-22] MEDS: METOPROLOL SUCC 25MG EXT REL TAB PO SCH (07:57)
[2022-04-22] MEDS: ISOSORBIDE MONO EXTENDED REL 30 MG TABCR PO SCH (07:58)
[2022-04-22] MEDS: CYPROHEPTADINE HCL 4 MG TAB PO SCH ×4 (07:58→21:13)
[2022-04-22 08:16] LABS: Ovalocytes 1+; Polychromasia 1+
[2022-04-22 08:18] LABS: Basophils # (auto) 0.02 K/uL (0-0.2); Basophils % (auto) 2.1 %; Eosinophils # (auto) 0.01 K/uL (0-0.50); Immature Granulocytes # (auto) 0.01 K/uL (0.00-0.02); Lymphocytes # (auto) 0.48 K/uL (1.2-3.4); Monocytes # (auto) 0.05 K/uL (0.24-0.82); Monocytes % (auto) 5.2 %; Neutrophils # (auto) 0.39 K/uL (1.4-6.5); Neutrophils % (auto) 40.7 %
--- NOTE | 2022-04-22 10:03 | Medical Student Progress Note ---
Date of Service April 22, 2022 Assessment & Plan (1) Nausea: Plan: Isadora is a 76 year old female with PMH of HTN, CAD, HLD, hypothyroidism, and PUD who presented 04/17/22 with chief concern of nausea, lack of appetite, and weight loss that has progressed over the last couple months. Nausea - Chief differentials include PUD vs. functional dyspepsia vs. abdominal wall trigger points. - Zofran PRN - Combo of pepcid, protonix, viscous lidocaine, tums, and maalox was given 04/18 for possibility of PUD. Seems to have alleviated symptoms somewhat, as she experienced less nausea/discomfort after. - Now receiving regular diet - PUD - Given some relief from PUD medication regimen and history of PUD, will continue to treat with protonix BID (has been taking it once per day at home for last couple of months).Outpatient EGD most likely.Discussed this situation with Dr. Lee of [facility] who states patient has an appt with GI 05/06 and will be evaluated then. - Functional dyspepsia -began cyproheptadine (04/19) 2 mg PO QID - Abdominal wall trigger points - On exam by attending, patient has palpable trigger points.Trigger point injections performed 04/20.Informed patient it may take days to a week to feel relief if effective. - Continue to monitor. Diarrhea - Patient experienced 4 episodes of diarrhea 04/20 into 04/21, which is a new symptom. On talking with her daughter, she has experienced fluctuation between constipation and diarrhea chronically. - Overflow diarrhea vs. concern for C-diff - Could be overflow diarrhea as patient reports she had not passed a bowel movement since days prior to presenting in hospital. - C diff returned negative on 04/21. Pancytopenia - malnutrition vs. malignancy vs. infection - WBC 0.96, Plt 91, Hgb 8.8 - low iron, IBC, and transferrin with normal ferritin - Viral labs for EBV consistent with past infection. Viral labs for CMV also consistent with past infection (04/22). - peripheral smear cytology normal, decreasing concern for malignant process in blood - seems most likely due to malnutrition - Consulted heme/onc for further consultation and guidance. They will evaluate outpatient, but in the interim they recommended orders: - Copper and zinc ordered to assess as potential cause of cytopenia. Results still pending. - CT chest recommended because original CT abdomen/pelvis (non contrast, on 04/17) showed small (up to 3mm) pulmonary nodules in lung bases - CT chest on 04/21 showed small pleural effusions with dependent atelectasis (new since 04/17) and scattered foci suggestive of pulmonary edema. Pleural Effusions/Pulmonary Edema - Stopped IV fluids to mitigate pleural effusions and pulmonary edema on 04/21. Patient was not experiencing SOB or orthopnea at that time. -Radiology recommended radiographic follow-up/6 month f/u chest CT for re- evaluation of lung nodule. - Patient is exhibiting symptoms of pulmonary edema with dependent edema in bilateral feet and SOB. Will consult nephrology regarding treatment d/t concerns with diuretics exacerbating THOMAS. Hypokalemia - Patient's potassium was mildly low at 3.3 this morning. - Given potassium chloride 40 meq this morning. - Plan to run a BMP around 2 PM today (04/22) to recheck potassium & give her an oral bump of potassium. - BMP was repeated this afternoon (04/22). Patient's potassium had increased to 3.5. We gave her another oral dose of 40 meq of potassium chloride this afternoon. Anemia - Hgb 9.1 - asymptomatic - continue monitoring THOMAS - prerenal depletion vs. intrinsic - Stopped LR 100 mL/hr d/t pulmonary edema and pleural effusions, and encouraged fluid intake. - Cr on admission 2.54 - Cr today 2.66 - Given concerns for continued THOMAS vs. new baseline Cr, as well as current symptoms and chest CT demonstrating fluid overload, appreciate nephrology consult. - On repeat BMP, patient's Cr has increased to 2.75 this afternoon (04/22). Pending further guidance from nephrology consult. Concern with treating with fluids d/t patient's pulmonary edema and pulmonary effusions. - FeNa 2.3%- lending itself to intrinsic renal (ATN) - Also likely prerenal depletion contributing due to chronic inadequate PO intake Hematuria - intrinsic renal vs. post renal (obstructive) - possibility of intrinsic renal discussed above. - plan for outpatient cystoscopy CAD, HTN, GERD, HLD, Hypothyroidism per chronic outpatient management. (2) Pancytopenia: (3) THOMAS (acute kidney injury): (4) Hematuria: (5) CAD (coronary artery disease): (6) Peptic ulcer disease: (7) Hypertension: Hypertension type: essential hypertension Qualified Code(s): I10 - Essential (primary) hypertension Admission and Anticipated Discharge Date Admission Date: April 17, 2022 Supervising Attestation Patient seen and examined, chart reviewed, case discussed with Kathy Hunt, MS 2 and Ashlee Weaver, DO and I agree with the assessment and plan as above except as otherwise noted Labs and images reviewed Patient is seen in late midmorning, reports that she feels much better and is apologetic for being crampy on initial exam this morning. She reports her appetite was actually much better, she ate half of a [employer] mini sandwich in addition to some rice and other food. She reports this makes her hopeful, and has not had much nausea or vomiting today. Abdomen is nontender to palpation, lungs are clear, heart rate is regular. Skin is warm and dry. Patient denies fevers/chills overnight. Nausea: Improving, patient doing much better today compared to prior. Continue management as noted previously and above Diarrhea: Improving, C. difficile negative Pancytopenia: Remains with critical neutropenia. No signs of infection at this time. Likely nutritional, continue to follow for improvement. Copper and zinc remain pending. Pulmonary edema: Fluids stopped. Defer Lasix given renal function THOMAS versus new CKD baseline? Patient with uptrending creatinine but obvious fluid overload. Fluids have been stopped. Concern for ATN versus new baseline with CKD. She did have hematuria, has been voiding. Will order renal ultrasound and bladder for assessment of hydro/postrenal obstruction. Nephr ology has been consulted for assistance. Adin Muir is a 76 year old female with PMH of HTN, CAD, HLD, hypothyroidism, and PUD who presented 04/17/22 with chief concern of nausea, lack of appetite, and weight loss that has progressed over the last couple months. Prior to my evaluation (per prior hospitalist note)04/18/2022: Pt explains to me that she has had difficulty eating and feeling nauseated for multiple months. This seems to have gotten worse, getting to the point yesterday where she "could not even eat applesauce." The pt states that she is often hungry but begins to eat and feels as though she will throw up so she stops eating. She has not actually vomited. She describes that the food she eats does not take right (metallic like). She generally has normal BM but did have some loose stool/diarrhea yesterday. She also explains that she gets headaches semi frequently. She denies chest pain, SOB, visual changes, and obvious bleeding. She explains to me that she recently had a melanoma excised from her back. She also has a hx of BCC. No other personal cancer hx. 04/19/2022: I evaluated Isadora today, who reports she is feeling about the same as yesterday. She is still experiencing moments of nausea, but describes these as moments where she "feels the nausea coming." She was able to eat her soup last night for dinner and cereal, OJ, and tea for breakfast this morning with no nausea. She does report this is more than she has been able to eat at home. She attempted to eat half of her yogurt and pudding, but then began feeling like she was going to gag if she took another bite. We gave medications for PUD yesterday, and she doesn't notice much of a difference but she doesn't "think they're hurting." Endorses feeling weak and fatigued. Denies vomiting, abdominal pain, chest pain, SOB, headache, congestion, dizziness, or lightheadedness. She has still noticed a red tint to her urine but it is not as dark as before. She had a few BM yesterday and she did not notice any BRB or darkened color. 04/20/2022: Patient was evaluated by inpatient hospitalist team. Per hospitalist note, she states that dinner was worse than lunch yesterday. With dinner, she could only have a few bites of dinner before stopping d/t nausea. Her urine has not been red tinged. She denies any new pains like chest pain, SOB, and leg pain. 04/21/22: I evaluated the patient. Reports she has not eaten yet at time of evaluation, so she is unsure if breakfast will make her feel nauseous. She began having a cough and loose stools overnight. She has experienced 4 episodes of loose stools from the middle of the night through 9 AM this morning. She experienced transient abdominal pain during one episode of passing stool. She does report relief of discomfort after voiding. Otherwise, she does not feel nauseous and is not experiencing abdominal pain or vomiting. She does report her urine is dark and red-tinged again. She also began experiencing a non- productive, dry cough in the middle of the night. Cough drops and sitting up brought relief. Denies congestion, rhinorrhea, SOB, chest pain. Does report a PMH of partial colon resection about 30 years ago due to chronic constipation/colonic stenosis. 04/21/22 afternoon: We re-evaluated the patient and spoke with her daughter. She has not passed any more bowel movements. She has now voided clear urine without blood. She did not eat much of her lunch. 04/22/22: Isadora reports she is feeling grumpy and unwell today. She was not able to eat a significant meal for dinner last night; reports she ate a few bites. Her urine was a dark pink color this morning. She has had one bowel movement since we last saw her, which she describes was still liquid, but her freq uency/number of bowel movements has decreased. She also reports shortness of breath, which she describes is more noticeable today than previously during her hospital stay. She began having swelling in her feet last night, and she has attempted to prop her legs up overnight to help. Also reports intermittent cough over the last couple days. Physical Exam Constitutional: Resting comfortably in bed and stood to walk around her room while evaluated. Well-appearing. Not in acute distress. Eyes: No conjunctival drainage or abnormality. Sclerae anicteric. Neck: Full ROM. Normal on visual inspection. Respiratory: Mild crackles in bilateral bases. No rhonchi or wheezes. Cardiovascular: Regular rate and rhythm. No murmurs, rubs, or gallops. Pitting edema in bilateral feet (1+ in right, minimal in left) Gastrointestinal (Abdomen): No tenderness to palpation. No masses palpated. Musculoskeletal: Pitting edema in bilateral feet (R>L) Skin: Warm and dry. No rashes or lesions. Neurologic: Alert & oriented to person, place, time, situation. Psychiatric: Appropriate mood and affect. Results & Data ([facility]) Vital Signs (Past 12 Hours) Vital Signs Temp Pulse Resp BP Pulse Ox O2 Del Method 04/22/22 09:26 177/79 H 04/22/22 07:20 37.1 C 74 14 196/82 H 92 Room Air Laboratory Results Laboratory Results - last 24 hr 04/19/22 04/22/2204/22/22 09:06 07:03 07:03 WBC 0.96 L* RBC 3.09 L Hgb 8.8 L Hct 25.9 L MCV 83.8 MCH 28.5 MCHC 34.0 RDW Std Deviation 42.4 RDW Coeff of Jarrod 13.8 Plt Count 91 L MPV 11.3 Immature Gran % (Auto) 1.0 Neut % (Auto) 40.7 Lymph % (Auto) 50.0 [place] % (Auto) 5.2 Eos % (Auto) 1.0 Baso % (Auto) 2.1 Neut # (Auto) 0.39 L* Lymph # (Auto) 0.48 L [place] # (Auto) 0.05 L Eos # (Auto) 0.01 Baso # (Auto) 0.02 Immature Gran # (Auto) 0.01 Polychromasia 1+ Ovalocytes 1+ Sodium 139 Potassium 3.3 L Chloride 105 Carbon Dioxide 27 Anion Gap 7 BUN 22 Creatinine 2.66 H Est Cr Clr Drug Dosing 13.7 Est GFR ( Amer) 19.1 Est GFR (Non-Af Amer) 16.5 BUN/Creatinine Ratio 8.3 L Glucose 82 Calcium 8.2 L CMV IgM Ab <30.00 CMV IgG Ab/TORCH 7.90 H 04/22/22 14:23 WBC RBC Hgb Hct MCV MCH MCHC RDW Std Deviation RDW Coeff of Jarrod Plt Count MPV Immature Gran % (Auto) Neut % (Auto) Lymph % (Auto) [place] % (Auto) Eos % (Auto) Baso % (Auto) Neut # (Auto) Lymph # (Auto) [place] # (Auto) Eos # (Auto) Baso # (Auto) Immature Gran # (Auto) Polychromasia Ovalocytes Sodium 137 Potassium 3.5 Chloride 104 Carbon Dioxide 26 Anion Gap 7 BUN 23 Creatinine 2.75 H Est Cr Clr Drug Dosing 13.2 Est GFR ( Amer) 18.4 Est GFR (Non-Af Amer) 15.9 BUN/Creatinine Ratio 8.4 L Glucose 134 H Calcium 8.8 CMV IgM Ab CMV IgG Ab/TORCH Diagnostic Findings Chest X-Ray 04/22/22 11:05 XR chest 1V portable HISTORY: Pulmonary edema. Follow-up. COMPARISON: Chest CT 04/21/2022. FINDINGS: No pneumothorax. Small bilateral pleural fusions and bibasilar linear densities persist. The heart remains borderline enlarged. There is mild central pulmonary vascular congestion without overt edema. IMPRESSION: Mild pulmonary vascular congestion and small bilateral pleural effusions again noted. ACT 112: Negative or not required by law. Electronically signed by: Olvin Langley M.D. 04/22/2022 12:08 PM
--- NOTE | 2022-04-22 12:09 | XRay Report ---
XR chest 1V portable HISTORY: Pulmonary edema. Follow-up. COMPARISON: Chest CT 04/21/2022. FINDINGS: No pneumothorax. Small bilateral pleural fusions and bibasilar linear densities persist. Th e heart remains borderline enlarged. There is mild central pulmonary vascular congestion without over t edema. IMPRESSION: Mild pulmonary vascular congestion and small bilateral pleural effusions again noted. ACT 112: Negative or not required by law. Electronically signed by: Olvin Langley M.D. 04/22/2022 12:08 PM
[2022-04-22 14:26] LABS: CMV IgM Antibody <30.00 AU/mL
--- NOTE | 2022-04-22 15:05 | Electrocardiogram Report ---
Test Reason : Blood Pressure : / mmHG Vent. Rate : 064 BPM Atrial Rate : 064 BPM P-R Int : 132 ms QRS Dur : 078 ms QT Int : 448 ms P-R-T Axes : 039 055 045 degrees QTc Int : 462 ms Sinus rhythm with Premature atrial complexes Nonspecific ST and T wave abnormality Abnormal ECG When compared with ECG of 03-DEC-2020 17:02, Premature atrial complexes are now Present Confirmed by Javon Tang [id number] on 04/22/2022 3:04:45 PM Referred By: REFERRED SELF Confirmed By:Norman Tang
[2022-04-22 15:15] LABS: BUN Creatinine Ratio 8.4 (10-20); Calcium 8.8 mg/dl (8.5-10.1); Creatinine Clr Calc Pharmacy 13.2 ml/min; Est GFR (African American) 18.4 ml/min; Est GFR (Non-African American) 15.9 ml/min; Potassium 3.5 mmol/L (3.5-5.1)
[2022-04-22] MEDS ORDERED: POTASSIUM CHLORIDE CRTAB 20 MEQ TABCR PO STA (15:17)
[2022-04-22] MEDS: ACETAMINOPHEN 325 MG TAB PO PRN (18:09)
--- NOTE | 2022-04-22 18:23 | Billing Data ---
Date of Service April 22, 2022 Coding Level of Care Code 41647 Subseq Hosp Care Lvl 2
--- NOTE | 2022-04-22 18:50 | Nephrology Consultation ---
Date of Consultation April 22, 2022 Assessment & Plan (1) THOMAS (acute kidney injury): Non-oliguric. Creatinine relatively stable since admission. Baseline creatinine in May 2021 0.96 mg/dL. No concerning features in the kidneys based on review of prior imaging. Urine studies notable for microscopic hematuria. No WBCs. Presentation consistent with non-glomerular hematuria. Repeat UA/micro requested. Chronicity or etiology of change in kidney function is not entirely clear. However, electrolytes are acceptable and volume status reasonable though hypervolemic. There is no emergent indication for dialysis. Medications appropriate for kidney function. (2) Hypertension: BP persistently elevated throughout admission. Asymptomatic from BP. Home antihypertensives/antianginals have been continued. No KASSANDRA/ARB. Hypervolemic. Low threshold to add low dose loop diuretic. Defer dietary sodium restriction. (3) Pancytopenia: Suggest hematology/oncology consultation. Neutropenic. Peripheral smear unrevealing. Clinical presentation very atypical for anaplasmosis, disseminated histoplasmosis, or other forms of infection. No obvious culprit medications. Cyproheptadine was just started. History is suggestive of possible underlying malignancy. Consideration also given to nutritional deficiency contributing. I suspect Isadora will ultimately require a bone marrow, notably given history of recent melanoma. (4) Hematuria: Patient describes possible history of gross hematuria. Noted chronic bladder changes seen on imaging. No WBCs or +culture to suggest cystitis. Will require follow up with urology. No smoking history. Urine cytology will be sent in the AM. Repeat UA/microscopy with next void. History of Present Illness Reason for Consultation: THOMAS Requesting Physician: Ricardo Bloom MD Attending Physician: Ricardo Bloom MD History of Present Illness Isadora Ervin is a 76-year-old female with coronary artery disease, dyslipidemia, GERD, hypothyroidism, and recent history of melanoma resection. Isadora was admitted to [facility] on April 17 with laboratory studies notable for pancytopenia and kidney dysfunction. She presented with ongoing unintentional weight loss, poor appetite, nausea, early satiety, and night sweats. Symptoms have been progressive since ~ August. Evaluation has been provided by her PCP, Dr. Meier. Isadora had reported globus sensation and completed an ENT evaluation. She was following with GI and underwent EGD in October which demonstrated antral ulcer c/w NSAID gastropathy. She notes that her condition seemed to progress around December after undergoing dental extractions and following a course of NSAIDS and antibiotics. She also had a melanoma removed from her back by Dr. Montoya and Dr. De Luna. Limited records from her PCP or [facility] were available for my review. However, the patient is scheduled to undergo evaluation with hematology/oncology for pancytopenia and recent cancer diagnosis as an outpatient. Management of GI symptoms and malnutrition is being provided in the interim. Cyproheptadine was started during the admission to stimulate appetite. Isadora notes that symptoms are improving. CT scan obtained on admission was reviewed. The kidneys were not obstructed and without lesion. Kidneys are normal in size and without notable cortical atrophy. Urine studies have been notable for microscopic hematuria. Isadora reports passing "brown urine." Urine did clear to a "pinkish" and then "yellow" with IV fluids. She reports brown discoloration later today. Repeat UA/microscopy has been requested. She denies any urinary symptoms otherwise at this time. Isadora notes that she did experience some mild dysuria back in December that was suggestive of a UTI and seemed to clear on it's own. Serum creatinine on admission 2.54 mg/dL. Creatinine in May 2021 was 0.96 mg/dL. Isadora reports blood work performed for Dr. Meier demonstrated a slightly elevated creatinine for which an additional evaluation was obtained. I do not have a copy of these labs or evaluation. Creatinine this evening is 2.77 mg/dL. Isadora follows in the cardiology clinic with Dr. Perez. She has preserved LVEF per records. NSTEMI in 2017 with CRUZITO to proximal LAD performed at the time. She is a non smoker. There is no reported history of significant alcohol use. Allergies Allergy/AdvReac Type Severity Reaction Status Date / Time alcohol Allergy Unknown Verified 04/17/22 21:57 [From Mastisol Adhesive] atorvastatin [From Lipitor] Allergy Unknown Verified 04/17/22 21:57 citalopram [From Celexa] Allergy Unknown Verified 04/17/22 21:57 fexofenadine Allergy Unknown Verified 04/17/22 21:57 [From Rebecca-D 12 Hour] gum mastic Allergy Unknown Verified 04/17/22 21:57 [From Mastisol Adhesive] ketorolac [From Toradol] Allergy Unknown Verified 04/17/22 21:57 methyl salicylate Allergy Unknown Verified 04/17/22 21:57 [From Mastisol Adhesive] pseudoephedrine Allergy Unknown Verified 04/17/22 21:57 [From Rebecca-D 12 Hour] simvastatin [From Zocor] Allergy Unknown Verified 04/17/22 21:57 storax Allergy Unknown Verified 04/17/22 21:57 [From Mastisol Adhesive] clarithromycin AdvReac Intermediate MOUTH SORES Verified 04/17/22 21:57 Home Medications Medication Instructions Recorded Confirmed Type aspirin 81 mg tablet,delayed 81 mg PO DAILY 01/10/19 04/17/22 History release (Joaquin Low Dose Aspirin) levothyroxine 50 mcg tablet 50 mcg PO Q2D 01/10/19 04/18/22 History levothyroxine 75 mcg tablet 75 mcg PO Q2D 01/10/19 04/18/22 History cholecalciferol (vitamin D3) 25 150 mcg PO DAILY 12/11/20 04/17/22 History mcg/drop (1,000 unit/drop) oral drops azelastine 137 mcg (0.1 %) nasal 2 spray intranasal DAILY #30 mL 06/18/21 04/17/22 Rx spray aerosol cyclosporine 0.05 % eye drops 1 drp ophthalmic (eye) Q12H 06/18/21 04/17/22 History (Restasis MultiDose) hydralazine 25 mg tablet 25 mg PO TID #270 tabs 09/14/21 04/17/22 Rx pantoprazole 40 mg tablet,delayed 40 mg PO QAM 12/15/21 04/17/22 History release Allergy Shot 1 dose INJ . EVERY 2 WEEKS 04/17/22 04/17/22 History ezetimibe 10 mg tablet 10 mg PO QPM 04/17/22 04/17/22 History isosorbide mononitrate 30 mg 30 mg PO QAM 04/17/22 04/17/22 History tablet,extended release 24 hr metoprolol succinate 50 mg 25 mg PO QAM 04/17/22 04/17/22 History tablet,extended release 24 hr xihdclhv-bad-fudj-FA-Ca carb-vit K 1 tab PO QAM 04/17/22 04/17/22 History 18 mg iron-400 mcg-500 mg tablet vitamin E 268 mg (400 unit) capsule 268 mg PO QAM 04/17/22 04/17/22 History Patient History Medical History Allergic rhinitis CAD (coronary artery disease) Chest pain GERD (gastroesophageal reflux disease) Hyperlipidemia Hypertension Hypothyroidism Peptic ulcer disease Plantar fasciitis of right foot Presence of drug coated stent in LAD coronary artery Surgical History H/O colonoscopy History of heart artery stent S/P breast lumpectomy S/P RIDGE-BSO S/P tooth extraction Family History Father Cancer Diabetes Stroke Mother Coronary heart disease Hypertension Heart disease Grandmother Coronary heart disease Sister Breast cancer, Onset Age: 66 Brother Hearing loss Other No family history of adverse response to anesthesia No family history of bleeding disorder Denies family history of Ovarian cancer Colorectal cancer Social History Smoking Status: Never smoker Second Hand Exposure: No; Hx Alcohol Use: No Hx Substance Use: No Preferred Language: Hebrew Communication Ability: Effective 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 Beliefs That Will Affect Care: None marital status: Single Current Living Situation: Alone Current Living Situation Comment: 7 steps into apartment building How many Children do You have: 1 Feels Safe at Home: Yes Assistive Devices: None Review of Systems Constitutional: + sweats, + fatigue, + anorexia, + weight loss and + daytime sleepiness Eyes: no problem reported Ear, Nose, Mouth, Throat: + dysphagia and + problem reported (globus sensation); no sore throat Respiratory: no problem reported Cardiovascular: + edema; no chest pain Gastrointestinal: + early satiety, + nausea and + constipation; no abdominal pain and no vomiting Genitourinary: + urinary frequency and + hematuria Musculoskeletal: see below Integumentary: as per Subjective / HPI; no non-healing lesions and no axillary lymphadenopathy Neurologic: + abnormal speech (some difficulty with recall reported); no headache(s) and no confusion Psychiatric: no problem reported Endocrine: no problem reported Hematologic / Lymphatic: + night sweats and + unexplained weight loss; no lymphadenopathy Physical Exam Constitutional: well developed and + thin; no acute distress Eyes: + anicteric sclerae; no corneal abnormality Neck: normal visual inspection and trachea midline Respiratory: normal respiratory effort Cardiovascular: Rate/Rhythm: regular rate Extremities: + pedal edema and + edema Musculoskeletal: Extremities: no cyanosis and no clubbing Skin: normal turgor and + turgor decreased; no lesions Neurologic: Motor/Sensory: no tremor and no asterixis Psychiatric: Orientation: alert and oriented x 3 Results & Data ([place]) Vital Signs (Past 12 Hours) Vital Signs Temp Pulse Resp BP Pulse Ox O2 Del Method 04/22/22 15:13 36.6 C 69 16 184/80 H 95 Room Air 04/22/22 14:20 36.6 C 67 16 179/81 H 94 Room Air 04/22/22 09:26 177/79 H 04/22/22 07:20 37.1 C 74 14 196/82 H 92 Room Air Laboratory Results Laboratory Results - last 24 hr 04/19/22 04/22/22 04/22/22 09:06 07:03 07:03 WBC 0.96 L* RBC 3.09 L Hgb 8.8 L Hct 25.9 L MCV 83.8 MCH 28.5 MCHC 34.0 RDW Std Deviation 42.4 RDW Coeff of Jarrod 13.8 Plt Count 91 L MPV 11.3 Immature Gran % (Auto) 1.0 Neut % (Auto) 40.7 Lymph % (Auto) 50.0 Ellis % (Auto) 5.2 Eos % (Auto) 1.0 Baso % (Auto) 2.1 Neut # (Auto) 0.39 L* Lymph # (Auto) 0.48 L Ellis # (Auto) 0.05 L Eos # (Auto) 0.01 Baso # (Auto) 0.02 Immature Gran # (Auto) 0.01 Polychromasia 1+ Ovalocytes 1+ Sodium 139 Potassium 3.3 L Chloride 105 Carbon Dioxide 27 Anion Gap 7 BUN 22 Creatinine 2.66 H Est Cr Clr Drug Dosing 13.7 Est GFR ( Amer) 19.1 Est GFR (Non-Af Amer) 16.5 BUN/Creatinine Ratio 8.3 L Glucose 82 Calcium 8.2 L Urine Color Urine Appearance Urine pH Ur Specific Brohman Urine Protein Urine Glucose (UA) Urine Ketones Urine Blood Urine Nitrite Urine Bilirubin Urine Urobilinogen Ur Leukocyte Esterase CMV IgM Ab <30.00 CMV IgG Ab/TORCH 7.90 H 04/22/22 04/22/22 14:23 18:52 WBC RBC Hgb Hct MCV MCH MCHC RDW Std Deviation RDW Coeff of Jarrod Plt Count MPV Immature Gran % (Auto) Neut % (Auto) Lymph % (Auto) Ellis % (Auto) Eos % (Auto) Baso % (Auto) Neut # (Auto) Lymph # (Auto) Ellis # (Auto) Eos # (Auto) Baso # (Auto) Immature Gran # (Auto) Polychromasia Ovalocytes Sodium 137 Potassium 3.5 Chloride 104 Carbon Dioxide 26 Anion Gap 7 BUN 23 Creatinine 2.75 H Est Cr Clr Drug Dosing 13.2 Est GFR ( Amer) 18.4 Est GFR (Non-Af Amer) 15.9 BUN/Creatinine Ratio 8.4 L Glucose 134 H Calcium 8.8 Urine Color Pending Urine Appearance Pending Urine pH Pending Ur Specific Brohman Pending Urine Protein Pending Urine Glucose (UA) Pending Urine Ketones Pending Urine Blood Pending Urine Nitrite Pending Urine Bilirubin Pending Urine Urobilinogen Pending Ur Leukocyte Esterase Pending CMV IgM Ab CMV IgG Ab/TORCH Diagnostic Findings CT images of the abdomen and pelvis were performed without contrast COMPARISON STUDY: Abdomen and pelvis CT 09/01/2021. FINDINGS: There are 2 new nodules within the right lower lobe measure up to 3 mm on images 27 and 59. These favor small foci of inflammatory/infectious change given the recent interval change. Similar-appearing 3 mm nodule within the lingula on image 12 which is also new. No pneumoperitoneum. No pneumatosis. No fractures within the visualized osseous structures. The unenhanced liver, spleen, adrenal glands, pancreas, left kidney are unremarkable. Stable 1.7 cm cyst within the right kidney. No renal or ureteral stones. No hydronephrosis. Mild calcified plaque within the normal caliber abdominal aorta. Prior cholecystectomy, hysterectomy, and appendectomy. The bladder is unremarkable. Prior rectosigmoid anastomosis. Suboptimal evaluation for bowel pathology due to the lack of intravenous and oral contrast. However, there is no definite bowel wall thickening or obstruction. IMPRESSION: 1. No definite bowel wall thickening or obstruction. 2. A few subcentimeter pulmonary nodules within the lung bases measuring up to 3 mm. Although technically indeterminate these favor small foci of inflammatory/infectious change given the recent interval change. 3. Postoperative changes as described above. CT scan of the thorax FINDINGS: Thyroid: Atrophic and heterogeneous. Thoracic aorta: There is atherosclerotic calcification of the thoracic aorta, which is normal in caliber and demonstrates standard 3-vessel arch anatomy. Heart: The heart is enlarged and without pericardial effusion. The coronary arteries are densely calcified. There is diminished attenuation of the cardiac blood pool as compared to the myocardium suggesting anemia. Lungs and pleural spaces: There are small pleural effusions with dependent atelectasis. Intralobular septal thickening is seen throughout both lungs. Foci of patchy groundglass change in both lungs suggests mild pulmonary edema. The trachea and central airways are clear. A 3 mm right lower lobe pulmonary nodule seen on image #221 cm in suspicion. Mediastinum: There is no mediastinal lymphadenopathy. Judith: Not well assessed without IV contrast. Axillae: There is no axillary lymphadenopathy. Upper abdomen: There are calcified splenic granulomas. Partially visualized upper abdominal viscera is otherwise grossly unremarkable. Skeletal structures: The skeletal structures are osteopenic. Mild degenerative change is noted in the shoulders and thoracic spine. No lytic or blastic bony lesions are seen. IMPRESSION: 1. Cardiomegaly without evidence of congestive failure. 2. Small pleural effusions with dependent atelectasis. This is new from 04/17/2022. 3. Scattered foci of patchy groundglass change suggest pulmonary edema. Clinical correlation will be required and radiographic follow-up to resolution is recommended. 4. Pleural effusions and pulmonary edema obscures the evaluation for pulmonary nodules. A six-month follow-up chest CT is recommended for reevaluation. PG Care Time/CCT Total # of Minutes Spent Total Time Spent with Patient: Total time spent is greater than 50% in coordination of care (as documented) at patient's floor/unit and/or counseling patient: Coding Level of Care Code 40030 Inpt Consult Level 5 Diagnoses THOMAS (acute kidney injury) N17.9 Hypertension I10 Hypertension type: essential hypertension Pancytopenia D61.818 Hematuria R31.9 (1) Hypertension Hypertension type: essential hypertension Qualified Code(s): I10 - Essential (primary) hypertension
--- NOTE | 2022-04-22 18:55 | Billing Data ---
Date of Service 2021 Coding Level of Care Code 09140 Subseq Hosp Care Lvl 3
--- NOTE | 2022-04-22 18:56 | Hospitalist Progress Note ---
Date of Service 2021 Assessment & Plan Admission and Anticipated Discharge Date Admission Date: April 17, 2022 Results & Data Results & Data ([facility]) Vital Signs (Past 12 Hours) Vital Signs Temp Pulse Resp BP Pulse Ox O2 Del Method 04/22/22 15:13 97.9 F 69 16 184/80 H 95 Room Air 04/22/22 14:20 97.9 F 67 16 179/81 H 94 Room Air 04/22/22 09:26 177/79 H 04/22/22 07:20 98.8 F 74 14 196/82 H 92 Room Air PG Care Time/CCT Total # of Minutes Spent Total Time Spent with Patient: Total time spent is greater than 50% in coordination of care (as documented) at patient's floor/unit and/or counseling patient: Coding Level of Care Code None Comment trigger point injection x2 trigger points
[2022-04-22 19:06] LABS: Appearance Urine Cloudy (Clear); Bacteria Urine Automated Negative (Negative); Bilirubin Urine Negative (Negative); Blood Urine 3+ (Negative); Color Urine Orange; Glucose Urine UA Negative (Negative); Ketones Urine Negative (Negative); Leukocyte Esterase Urine Negative (Negative); Nitrite Urine Negative (Negative); RBC Urine Automated >30 /hpf (0-4); Urobilinogen Urine Negative (Negative); pH Urine 8.5 (4.5-7.5)
[2022-04-22 19:14] LABS: Protein Urine 2+ (Negative)
[2022-04-22] MEDS: EZETIMIBE 10 MG TABLET PO SCH (21:14)
[2022-04-23] MEDS: LEVOTHYROXINE SODIUM 75 MCG TABLET PO SCH (06:20)
[2022-04-23] MEDS: CYPROHEPTADINE HCL 4 MG TAB PO SCH ×4 (07:21→20:17)
[2022-04-23] MEDS: SUCRALFATE 1 GM/10 ML UDC PO SCH ×4 (07:22→20:16)
[2022-04-23] MEDS: METOPROLOL SUCC 25MG EXT REL TAB PO SCH (07:39)
[2022-04-23] MEDS: ASPIRIN 81 MG ECTAB PO SCH (07:40)
[2022-04-23] MEDS: FAMOTIDINE 20 MG TAB PO SCH ×2 (07:40→20:17)
[2022-04-23] MEDS: ISOSORBIDE MONO EXTENDED REL 30 MG TABCR PO SCH (07:40)
[2022-04-23] MEDS: PANTOprazole 40 MG TAB PO SCH ×2 (07:40→20:18)
[2022-04-23] MEDS: hydrALAZINE HCL 25 MG TAB PO SCH ×3 (07:41→20:18)
[2022-04-23] MEDS: AZELASTINE HCL 0.1% NASAL 200 SPRAYS/27,400 MCG BTL SCH (07:41)
--- NOTE | 2022-04-23 07:55 | Hospitalist Progress Note ---
Date of Service April 23, 2022 Assessment & Plan (1) THOMAS (acute kidney injury): Plan: Isadora is a 76 year old female with PMH of HTN, CAD, HLD, hypothyroidism, and PUD who presented 04/17/22 with chief concern of nausea, lack of appetite, and weight loss that has progressed over the last couple months. Patient is beign managed for PUD vs. Dyspepsia vs Abdominal Trigger points, but has also been found to have an THOMAS, hematuria, pancytopenia, and pleural effusions. Hypertension - Patient's 0700 BP 228/93, received Hydralazine TID, Isosorbide QAM, and Metoprolol QAM after elevated vitals read - Recheck @ 0815 showed BP 170/73 - Patient received Lasix 20 mg IV in AM - Despite antihypertensives and Lasix, BP continued to rise in afternoon - Amlodipine 5 mg PO added @ 1630 - Will schedule amlodipine if benefit - Will repeat Lasix 20 mg IV in AM 04/24 if indicated FTT/Weight Loss/Nausea - Etiology considered 2/2 PUD vs. functional dyspepsia vs. malignancy vs. trigger points - Symptomatically improving, yet anorexia continues - Encouraged PO intake and supplementation with boost - Zofran PRN - Ativan 0.25mg PO prior to meals - Continue pepcid, protonix, viscous lidocaine, tums, and maalox (previously improved sx) - Cyprohepatdine 2 mg PO QID started 04/19 for functional dyspepsia - Olanzapine 2.5 mg PO BID added 04/23 AM - Recommending outpatient EGD following discharge - Continue to monitor Pancytopenia - Etiology 2/2 malnutrition vs. malignancy vs. infection - Hx recent melanoma - WBC 1.34 L, Plt 126, Hgb 10.4 (improving) - Neutropenic (0.69) - unrevealing peripheral smear - CRP 0.9 H on 04/18 - Procalcitonin negative - Low iron, IBC, and transferrin with normal ferritin - Blood Cultures NGTD - Viral Panel Negative for acute process - Peripheral Smear Cytology normal - Hematology consulted 04/19 THOMAS/Hematuria - Etiology considered prerenal vs. intrinsic - Cr on admission 2.54, currently 2.72 9/3 (rising) w/ GFR 16.1 - 3+ on UA, 2+ protein, neg for infection, no casts - FeNa 2.3%- lending itself to possible intrinsic renal (ATN) - LR held 09/22 peripheral edema and pulmonary effusions, discontinued 04/22 @ 0900 - Will continue hydration when indicated - Nephrology consulted 04/22 * 04/22 - Unclear etiology of change in kidney fxn, electrolytes acceptable, volume hypervolemic, no emergent need for dialysis, medications appropriate. HTN - asymptomatic, no KASSANDRA/ARB, low threshold to add loop diuretic, defer dietary Na restriction. Hematuria - possibly gross hematuria, chronic bladder changes, recommends urology follow up and outpatient cystoscopy * 04/23 - Cr stable, non-oliguric, calcific vascular disease on CT, duplex pending, recommended loop diuretic. Persistent hematuria, continues to recommend outpatient follow up. HTN- suspect furosemide will benefit BP, recommended consideration of amlodipine if BP remains elevated. CAD - s/p stent placement to LAD in 2016 - Continue ASA 81mg PO daily - Continue Zetia 10mg PO daily - Continue Metoprolol GERD - home regimen 40 mg protonix daily - increased to 40 mg BID d/t concern for progression of PUD HLD - Continue ezetimibe Hypothyroidism - Continue Synthroid 50mcg alternating with 75mcg PO daily - TSH slightly elevated at 4.635 (2) Nausea: (3) Hematuria: (4) CAD (coronary artery disease): (5) GERD (gastroesophageal reflux disease): (6) Hyperlipidemia: (7) Hypothyroidism: Plan Diet: regular Fluids/electrolytes: LR 100 mL/hr d/c 04/22, none at present Consults: hem/onc, nephro Dispo: med Admission and Anticipated Discharge Date Admission Date: April 17, 2022 Supervising Physician Co-Signing Physician Notes Patient seen and examined, chart reviewed, case discussed with Natalie Luna, and I agree with the assessment and plan as above except as otherwise noted Labs and images reviewed Seen at bedside this morning. Daughter feels she is doing okay, but is less confident in her appetite today. She reports that while she did well with a trial of her trospium makes yesterday, she feels that she is unable to tolerate rice but with less appetite today. Is interested in trialing an appetite stimulant, will trial olanzapine. If does not tolerate side effects, could also trial Marinol. She denies fever, chills, sweats, lightheadedness, dizziness, focal weakness, vision change, headache today. She reports she has early satiety, but no nausea this morning on exam vision and hearing is grossly intact, heart rate is regular, lungs are clear to auscultation. Abdomen is nontender. Nausea/vomiting: Continue cyproheptadine for treatment of functional dyspepsia. Appetite is improving, but somewhat stalled improvement this morning. Trial of olanzapine as noted. CKD versus THOMAS Creatinine currently stable around 2.7. Unclear acuity. Nephro consulted, following paraprotein/monoclonal screenings. Patient with calcified vascular disease on CT. Patient is clinically volume overloaded, with stable creatinine and above eval will start Lasix 20 daily Renal artery Doppler without elevated velocities/normal resistive indices Pancytopenia Beginning to improve, nutrition improving Patient is with early satiety, willing to trial olanzapine for appetite stimulation. We will start with 2.5 mg Leukopenia improving today Anticipate outpatient follow-up with heme-onc Hematuria Outpatient follow-up with urology. Cytology pending.Patient scheduled for outpatient cystoscopy Hypertension Pending renal duplex Lasix pending for above Hydralazine on 3 times daily, if continues to be hypertensive with Lasix we will add amlodipine. Adin Muir is a 76 year old female with PMH of HTN, CAD, HLD, hypothyroidism, and PUD who presented 04/17/22 with chief concern of nausea, lack of appetite, and weight loss that has progressed over the last couple months. Patient is beign managed for PUD vs. Dyspepsia vs Abdominal Trigger points, but has also been found to have an THOMAS, hematuria, pancytopenia, and pleural effusions. 04/23/22: - Appetite - improving, but still remains low (was previously limited by nausea, now limited by lack of desire to eat) - Patient endorses ongoing anxiety surrounding eating, believes it is related to having been so nauseous before - Urination without abnormality - Bowel Movements without abnormality - Headache worse than normal, Tylenol with minimal benefit (04/30) - Patient denies cough, dyspnea, or pleuritic pain - Patient endorses lower extremity swelling Review of Systems Review of Systems: See HPI. Physical Exam Physical Exam: Gen: NAD, alert, interactive HEENT: Supple, no LAD, no JVD Resp:Non-labored, no wheezing/rhonchi/rales, CTAB CV:RRR, normal S1/S2, no M/R/G Abd: Soft, non-distended, no TTP, normoactive bowels, no masses Extr: 2+ dp bilaterally, 1+ pitting edema in LE (R>L) Skin: No rashes lesions or erythema Results & Data Results & Data ([facility]) Vital Signs (Past 12 Hours) Vital Signs Temp Pulse Resp BP BP Pulse Ox O2 Del Method 04/23/22 07:30 36.7 C 77 16 228/93 H 96 Room Air 04/22/22 23:55 36.5 C 61 16 185/78 H 172/78 H 94 Room Air 04/22/22 21:20 189/75 H Diagnostic Findings CXR 04/22/22: IMPRESSION: Mild pulmonary vascular congestion and small bilateral pleural effusions again noted. Renal Artery Duplex 04/23/22: IMPRESSION: No evidence for renal artery stenosis. Resident Activity Tracking Resident Involvement: Resident Care Provided Care Provided: Adult Hospital Medicine (1) GERD (gastroesophageal reflux disease) Esophagitis presence: esophagitis presence not specified Qualified Code(s): K21.9 - Gastro-esophageal reflux disease without esophagitis
[2022-04-23] MEDS: ACETAMINOPHEN 325 MG TAB PO PRN (08:35)
[2022-04-23 08:46] LABS: Hematocrit (blood only) 31.5 % (34.1-44.9); Hemoglobin 10.4 g/dl (12.0-16.0); Mean Corpuscular Hemoglobin 28.5 pg (25.0-34.0); Mean Corpuscular Volume 86.3 fL (80.0-100.0); Mean Platelet Volume 11.5 fL (9.4-12.3); Platelet Count 126 K/uL (130-400); RDW Standard Deviation 43.5 fL (36.4-46.3); Red Blood Count 3.65 M/uL (3.93-5.22); White Blood Count 1.34 K/ul (4.8-10.8)
[2022-04-23 09:12] LABS: BUN Creatinine Ratio 8.1 (10-20); Calcium 8.9 mg/dl (8.5-10.1); Creatinine Clr Calc Pharmacy 13.4 ml/min; Est GFR (African American) 18.6 ml/min; Est GFR (Non-African American) 16.1 ml/min
[2022-04-23] MEDS ORDERED: FUROSEMIDE INJ 20 MG/2 ML VIAL IV ONE (09:19)
[2022-04-23 09:41] LABS: Ovalocytes 1+
[2022-04-23 09:45] LABS: Basophils # (auto) 0.02 K/uL (0-0.2); Basophils % (auto) 1.5 %; Eosinophils # (auto) 0.03 K/uL (0-0.50); Eosinophils % (auto) 2.2 %; Immature Granulocytes # (auto) 0.01 K/uL (0.00-0.02); Immature Granulocytes % (auto) 0.7 %; Lymphocytes # (auto) 0.53 K/uL (1.2-3.4); Lymphocytes % (auto) 39.6 %; Monocytes # (auto) 0.06 K/uL (0.24-0.82); Monocytes % (auto) 4.5 %; Neutrophils # (auto) 0.69 K/uL (1.4-6.5); Neutrophils % (auto) 51.5 %
[2022-04-23] MEDS: OLANZAPINE 2.5 MG TAB PO SCH ×2 (09:57→20:18)
--- NOTE | 2022-04-23 10:26 | Nephrology Progress Note ---
Date of Service April 23, 2022 Assessment & Plan (1) THOMAS (acute kidney injury): Plan: Creatinine relatively stable at 2.7 mg/dL. Non-oliguric. Electrolytes normal. Some fluid retention noted. Calcific vascular disease noted on CT. Duplex pending. Chronicity of elevated creatinine unknown. I will add orders for screening for paraprotein/monoclonal abnormality and evidence of CKD/MBD. Medications are appropriate for kidney function. Today, a low dose loop diuretic will be added to encourage slightly negative fluid balance. I discussed this plan of care with Dr. Bloom. (2) Hematuria: Plan: UA/microscopy yesterday demonstrating persistent hematuria. No WBCs or bacteria. Urine with orange tinge. Isadora will require outpatient urology follow up. Urine cytology sent this AM. (3) Hypertension: Plan: Accelerated but appears asymptomatic. Renal duplex ordered. Start low dose furosemide to encourage slightly negative fluid balance. Consider adding a dihydropyridine CCB such as amlodipine if BP remains elevated. Admission and Anticipated Discharge Date Admission Date: April 17, 2022 Subjective No acute events overnight. Isadora feels reasonably well this AM. Appetite improving. Mild nausea associated with specific smells this AM but this was transient. Elevated BP but denies associated symptoms. Denies fluid retention. Increased urine output noted overnight. No fevers or chills. Review of Systems Review of Systems: All systems reviewed & are unremarkable except as noted in HPI & below Physical Exam Constitutional: well developed and + thin; no acute distress Eyes: + anicteric sclerae; no corneal abnormality Neck: normal visual inspection and trachea midline Respiratory: normal respiratory effort Cardiovascular: Rate/Rhythm: regular rate Extremities: + pedal edema and + edema Musculoskeletal: Extremities: no cyanosis and no clubbing Skin: normal turgor and + turgor decreased; no lesions Neurologic: Motor/Sensory: no tremor and no asterixis Psychiatric: Orientation: alert and oriented x 3 Results & Data ([facility]) Vital Signs (Past 12 Hours) Vital Signs Temp Pulse Resp BP BP Pulse Ox O2 Del Method 04/23/22 09:05 170/73 H 04/23/22 08:29 196/77 H 04/23/22 07:30 36.7 C 77 16 228/93 H 96 Room Air 04/22/22 23:55 36.5 C 61 16 185/78 H 172/78 H 94 Room Air Laboratory Results Laboratory Results - last 24 hr 04/19/22 04/22/22 04/22/22 09:06 14:23 18:52 WBC RBC Hgb Hct MCV MCH MCHC RDW Std Deviation RDW Coeff of Jarrod Plt Count MPV Immature Gran % (Auto) Neut % (Auto) Lymph % (Auto) [place] % (Auto) Eos % (Auto) Baso % (Auto) Neut # (Auto) Lymph # (Auto) [place] # (Auto) Eos # (Auto) Baso # (Auto) Immature Gran # (Auto) Ovalocytes Sodium 137 Potassium 3.5 Chloride 104 Carbon Dioxide 26 Anion Gap 7 BUN 23 Creatinine 2.75 H Est Cr Clr Drug Dosing 13.2 Est GFR ( Amer) 18.4 Est GFR (Non-Af Amer) 15.9 BUN/Creatinine Ratio 8.4 L Glucose 134 H Calcium 8.8 Urine Color [place] Urine Appearance Cloudy A Urine pH 8.5 H Ur Specific [place] 1.010 Urine Protein 2+ H Urine Glucose (UA) Negative Urine Ketones Negative Urine Blood 3+ H Urine Nitrite Negative Urine Bilirubin Negative Urine Urobilinogen Negative Ur Leukocyte Esterase Negative Urine WBC (Auto) 1-5 Urine RBC (Auto) >30 H U Hyaline Cast (Auto) 1-5 U Epithel Cells (Auto) 5-10 H Urine Bacteria (Auto) Negative CMV IgM Ab <30.00 CMV IgG Ab/TORCH 7.90 H 04/23/22 04/23/22 08:02 08:02 WBC 1.34 L RBC 3.65 L Hgb 10.4 L Hct 31.5 L MCV 86.3 MCH 28.5 MCHC 33.0 RDW Std Deviation 43.5 RDW Coeff of Jarrod 14.0 Plt Count 126 L MPV 11.5 Immature Gran % (Auto) 0.7 Neut % (Auto) 51.5 Lymph % (Auto) 39.6 [place] % (Auto) 4.5 Eos % (Auto) 2.2 Baso % (Auto) 1.5 Neut # (Auto) 0.69 L* Lymph # (Auto) 0.53 L [place] # (Auto) 0.06 L Eos # (Auto) 0.03 Baso # (Auto) 0.02 Immature Gran # (Auto) 0.01 Ovalocytes 1+ Sodium 139 Potassium 4.0 Chloride 106 Carbon Dioxide 27 Anion Gap 6 BUN 22 Creatinine 2.72 H Est Cr Clr Drug Dosing 13.4 Est GFR ( Amer) 18.6 Est GFR (Non-Af Amer) 16.1 BUN/Creatinine Ratio 8.1 L Glucose 85 Calcium 8.9 Urine Color Urine Appearance Urine pH Ur Specific [place] Urine Protein Urine Glucose (UA) Urine Ketones Urine Blood Urine Nitrite Urine Bilirubin Urine Urobilinogen Ur Leukocyte Esterase Urine WBC (Auto) Urine RBC (Auto) U Hyaline Cast (Auto) U Epithel Cells (Auto) Urine Bacteria (Auto) CMV IgM Ab CMV IgG Ab/TORCH PG Care Time/CCT Total # of Minutes Spent Total Time Spent with Patient: Total time spent is greater than 50% in coordination of care (as documented) at patient's floor/unit and/or counseling patient: Coding Level of Care Code 33795 Subseq Hosp Care Lvl 3 Diagnoses THOMAS (acute kidney injury) N17.9 Hematuria R31.9 Hypertension I10 Hypertension type: essential hypertension (1) Hypertension Hypertension type: essential hypertension Qualified Code(s): I10 - Essential (primary) hypertension
--- NOTE | 2022-04-23 12:21 | Ultrasound Report ---
US duplex renal artery CLINICAL HISTORY: Acute kidney injury. Assess for renal artery stenosis. COMPARISON STUDY: Renal ultrasound 04/14/2022. FINDINGS: No elevated velocities within the bilateral renal arteries to suggest a stenosis. The bilat eral renal arcuate arteries demonstrate normal resistive indices less than 0.75. The bilateral renal veins are patent. IMPRESSION: No evidence for renal artery stenosis. ACT 112: Negative or not required by law. Electronically signed by: Olvin Langley M.D. 04/23/2022 12:19 PM
--- NOTE | 2022-04-23 13:48 | Billing Data ---
Date of Service April 23, 2022 Coding Level of Care Code 00784 Subseq Hosp Care Lvl 3
--- NOTE | 2022-04-23 13:59 | Billing Data ---
Date of Service April 23, 2022 Coding Level of Care Code 23551 Subseq Hosp Care Lvl 3
[2022-04-23] MEDS ORDERED: amLODIPine BESYLATE 5 MG TAB PO ONE ×2 (16:16→18:25)
[2022-04-23] MEDS: EZETIMIBE 10 MG TABLET PO SCH (20:17)
[2022-04-24] MEDS: LEVOTHYROXINE SODIUM 50 MCG TABLET PO SCH (06:29)
--- NOTE | 2022-04-24 07:35 | Hospitalist Progress Note ---
Date of Service April 24, 2022 Assessment & Plan (1) THOMAS (acute kidney injury): Plan: Isadora is a 76 year old female with PMH of HTN, CAD, HLD, hypothyroidism, and PUD who presented 04/17/22 with chief concern of nausea, lack of appetite, and weight loss that has progressed over the last couple months. Patient is beign managed for PUD vs. Dyspepsia vs Abdominal Trigger points, but has also been found to have an THOMAS, hematuria, pancytopenia, and pleural effusions. Hypertension - Patient's 0600 BP 212/74 (per nursing), added 10 mg Amlodipine QAM 04/24, held Metoprolol AM (resumed for 04/25) - 0800 BP 152/80 (per EMR), 1500 BP 106/65 (afternoon Hydralazine held) - Patient received Lasix 20 mg IV in AM 04/23, no additional dosing given 04/24 FTT/Weight Loss/Nausea - Etiology considered 2/2 PUD vs. functional dyspepsia vs. malignancy vs. trigger points - Symptomatically improving, yet anorexia continues - Encouraged PO intake and supplementation with boost - Zofran PRN - Ativan 0.25mg PO prior to meals - Continue pepcid, protonix, viscous lidocaine, tums, and maalox (previously improved sx) - Cyprohepatdine 2 mg PO QID started 04/19 for functional dyspepsia - Olanzapine 2.5 mg PO BID added 04/23 AM, improving appetite, continue - Recommending outpatient EGD following discharge - Continue to monitor Pancytopenia - Etiology 2/2 malnutrition vs. malignancy vs. infection - Hx recent melanoma - WBC 1.34 L, Plt 126, Hgb 10.4 (improving) - Neutropenic (0.69) - unrevealing peripheral smear - Afebrile - CRP 0.9 H on 04/18 - Procalcitonin negative - Low iron, IBC, and transferrin with normal ferritin - Blood Cultures NGTD @ 5 days - Viral Panel Negative for acute process - Peripheral Smear Cytology normal - Hematology consulted 04/19 ---Anticipate outpatient hematology/oncology follow up THOMAS vs CKD/Hematuria - Etiology considered prerenal vs. intrinsic, chronicity unknown - Cr on admission 2.54, currently 2.95 04/24 (rising) w/ GFR 14.6 (downtrending) - Nephrology consulted 04/22, following * 04/22 - Unclear etiology of change in kidney fxn, electrolytes acceptable, volume hypervolemic, no emergent need for dialysis, medications appropriate. HTN - asymptomatic, no KASSANDRA/ARB, low threshold to add loop diuretic, defer dietary Na restriction. Hematuria - possibly gross hematuria, chronic bladder changes, recommends urology follow up and outpatient cystoscopy * 04/23 - Cr stable, non-oliguric, calcific vascular disease on CT, duplex pending, recommended loop diuretic. Persistent hematuria, continues to recommend outpatient follow up. HTN- suspect furosemide will benefit BP, recommended consideration of amlodipine if BP remains elevated. * 04/24 - Slight increase in Cr, suspected secondary to intravascular depletion following negative fluid balance, volume acceptable, BP improving, no JAGJIT on duplex. Chronicity of elevation in Cr unknown, sPTH, SPEP/IF pending. Medications appropriate. Additional diuretics held. Goal to maintain even/sli ghtly negative fluids balance. ---Anticipate outpatient urology follow up and cystoscopy CAD - s/p stent placement to LAD in 2016 - Continue ASA 81mg PO daily - Continue Zetia 10mg PO daily - Continue Metoprolol GERD - home regimen 40 mg protonix daily - increased to 40 mg BID d/t concern for progression of PUD HLD - Continue ezetimibe Hypothyroidism - Continue Synthroid 50mcg alternating with 75mcg PO daily - TSH slightly elevated at 4.635 (2) Nausea: (3) Hematuria: (4) CAD (coronary artery disease): (5) GERD (gastroesophageal reflux disease): (6) Hyperlipidemia: (7) Hypothyroidism: Plan Diet: regular Fluids/electrolytes: LR 100 mL/hr d/c 04/22, none at present Consults: hem/onc, nephro Dispo: med Admission and Anticipated Discharge Date Admission Date: April 17, 2022 Supervising Physician Co-Signing Physician Notes Patient seen and examined, chart reviewed, case discussed with Natalie Luna, and I agree with the assessment and plan as above except as otherwise noted Labs and images reviewed Seen at the bedside, feels a little better today. Definitely notices a difference from Zyprexa, does not want to increase this yet. Feels completely tired and washed out after the Lasix and note she was peeing a great deal all night but feels okay at the bedside. No fever, chills, sweats. No chest pain or chest pressure or bleeding. Her daughter notes she was not hungry and was not can eat breakfast, but after the Zyprexa did eat most of her breakfast. Patient is hesitant to increase this, but is okay continuing it at current dose. Lungs are clear, heart is regular, skin is warm and dry. Dispo planning: Patient now with improving appetite. Doing well on Zyprexa, continue this and if remains well discussed transition to outpatient follow-up which patient is agreeable to Nausea/vomiting: Continue cyproheptadine for treatment of functional dyspepsia. Appetite is improving, but somewhat remains stalled, continue olanzapine . PCI: Patient has had difficulty tolerating aspirin before, but reports a history of cardiac stenting. Would not recommend discontinuing aspirin unless absolutely necessary CKD versus THOMAS Creatinine Currently slightly uptrending, Aerius yesterday and is now relatively euvolemic Nephro consulted, following paraprotein/monoclonal screenings. Patient with calcified vascular disease on CT. Renal artery Doppler without elevated velocities/normal resistive indices Pancytopenia Beginning to improve, nutrition improving Patient is with early satiety, willing to trial olanzapine for appetite stimulation. Candida 2.5 mg, doing well and recommend continuing this Anticipate outpatient follow-up with heme-onc Continue multivitamin with minerals. Improving, appropriate for progression to outpatient follow-up for this at this time Hematuria Outpatient follow-up with urology. Cytology pending. Patient scheduled for outpatient cystoscopy Hypertension Renal duplex without hemodynamically significant stenosis Hydralazine on 3 times daily Remains mildly hypertensive in the morning, but markedly improved with Lasix and amlodipine. Continue amlodipine Adin Muir is a 76 year old female with PMH of HTN, CAD, HLD, hypothyroidism, and PUD who presented 04/17/22 with chief concern of nausea, lack of appetite, and weight loss that has progressed over the last couple months. Patient is beign managed for PUD vs. Dyspepsia vs Abdominal Trigger points, but has also been found to have an THOMAS, hematuria, pancytopenia, and pleural effusions. Today 04/24/22: - Consumed breakfast 04/23, lunch, dinner, and breakfast 04/24 - Feels the new medicine is helping her appetite (Zyprexa) - Shortness of breath/worsening headache with elevated pressures, resolves when controlled - No chest pain or pleuritic pain - Occasional lower abdominal pain, resolves within minutes on its own, no GI changes, not reproducible - Ongoing headache, resolved by Tylenol - Episode of incontinence 2/2 increased urination overnight (dose of Lasix 04/23) - Improvement of lower extremity swelling Discussed plan at length with patient's daughter 9/4 AM during visit. Answered questions and addressed concerns. 04/23/22: - Appetite - improving, but still remains low (was previously limited by nausea, now limited by lack of desire to eat) - Patient endorses ongoing anxiety surrounding eating, believes it is related to having been so nauseous before - Urination without abnormality - Bowel Movements without abnormality - Headache worse than normal, Tylenol with minimal benefit (04/30) - Patient denies cough, dyspnea, or pleuritic pain - Patient endorses lower extremity swelling Review of Systems Review of Systems: See HPI. Physical Exam Physical Exam: Gen: NAD, alert, interactive HEENT: Supple, no LAD, no JVD Resp:Non-labored, no wheezing/rhonchi/rales, CTAB CV:RRR, normal S1/S2, no M/R/G Abd: Soft, non-distended, no TTP, normoactive bowels, no masses Extr: 2+ dp bilaterally, trace pitting edema in LE (R>L) Skin: No rashes lesions or erythema Results & Data Results & Data ([facility]) Vital Signs (Past 12 Hours) Vital Signs Temp Pulse Pulse Pulse Resp BP BP 04/23/22 22:12 37 C 74 17 182/81 H 206/80 H 04/23/22 20:10 68 67 173/69 H 168/74 H Pulse Ox O2 Del Method 04/23/22 22:12 97 Room Air 04/23/22 20:10 Resident Activity Tracking Resident Involvement: Resident Care Provided Care Provided: Adult Hospital Medicine (1) GERD (gastroesophageal reflux disease) Esophagitis presence: esophagitis presence not specified Qualified Code(s): K21.9 - Gastro-esophageal reflux disease without esophagitis
[2022-04-24] MEDS: amLODIPine BESYLATE 5 MG TAB PO SCH (07:41)
[2022-04-24] MEDS: AZELASTINE HCL 0.1% NASAL 200 SPRAYS/27,400 MCG BTL SCH (07:41)
[2022-04-24] MEDS: SUCRALFATE 1 GM/10 ML UDC PO SCH ×4 (07:41→20:21)
[2022-04-24] MEDS: hydrALAZINE HCL 25 MG TAB PO SCH ×3 (07:42→20:21)
[2022-04-24] MEDS: CYPROHEPTADINE HCL 4 MG TAB PO SCH ×4 (07:42→20:22)
[2022-04-24] MEDS: ASPIRIN 81 MG ECTAB PO SCH (07:43)
[2022-04-24] MEDS: OLANZAPINE 2.5 MG TAB PO SCH ×2 (07:43→20:21)
[2022-04-24] MEDS: ISOSORBIDE MONO EXTENDED REL 30 MG TABCR PO SCH (07:43)
[2022-04-24] MEDS: PANTOprazole 40 MG TAB PO SCH ×2 (07:43→20:21)
[2022-04-24] MEDS: FAMOTIDINE 20 MG TAB PO SCH ×2 (07:43→20:21)
[2022-04-24 08:43] LABS: Hematocrit (blood only) 31.4 % (34.1-44.9); Hemoglobin 10.5 g/dl (12.0-16.0); Mean Corpuscular Hemoglobin 28.7 pg (25.0-34.0); Mean Corpuscular Hgb Conc 33.4 g/dL (32.0-36.0); Mean Corpuscular Volume 85.8 fL (80.0-100.0); Mean Platelet Volume 11.5 fL (9.4-12.3); Platelet Count 122 K/uL (130-400); RDW Standard Deviation 43.4 fL (36.4-46.3); Red Blood Count 3.66 M/uL (3.93-5.22)
[2022-04-24 09:01] LABS: Albumin Level 3.2 gm/dl (3.4-5.0); BUN Creatinine Ratio 7.5 (10-20); Calcium 8.8 mg/dl (8.5-10.1); Creatinine Clr Calc Pharmacy 12.3 ml/min; Est GFR (African American) 16.9 ml/min; Est GFR (Non-African American) 14.6 ml/min; Potassium 3.7 mmol/L (3.5-5.1)
[2022-04-24] MEDS: CEROVITE ADV FORMULA TAB PO SCH (09:37)
[2022-04-24] MEDS: ACETAMINOPHEN 325 MG TAB PO PRN (09:39)
--- NOTE | 2022-04-24 11:45 | Nephrology Progress Note ---
Date of Service April 24, 2022 Assessment & Plan (1) THOMAS (acute kidney injury): Plan: Creatinine slightly increased at 2.9 mg/dL. I suspect this reflects some intravascular depletion following negative fluid balance. Volume status acceptable. BP improving. No JAGJIT on duplex. Electrolytes normal. Chronicity of elevated creatinine unknown. However, Isadora does not have sPTH. SPEP/IF pending. Medications are appropriate for kidney function. Additional diuretics held today. Goal is to maintain an even to slightly negative fluid balance. (2) Hematuria: Plan: Isadora will require outpatient urology follow up. Urine cytology pending. (3) Hypertension: Plan: Improvement noted. Consider adding low dose amlodipine if BP remains elevated. Admission and Anticipated Discharge Date Admission Date: April 17, 2022 Subjective No acute events overnight. No complaints this AM. Appetite continues to improve. No nausea or GI symptoms. Robust response to furosemide yesterday. BP and edema showing improvement. Review of Systems Review of Systems: All systems reviewed & are unremarkable except as noted in HPI & below Physical Exam Constitutional: well developed and + thin; no acute distress Eyes: + anicteric sclerae; no corneal abnormality Neck: normal visual inspection and trachea midline Respiratory: normal respiratory effort Cardiovascular: Rate/Rhythm: regular rate Extremities: + pedal edema Musculoskeletal: Extremities: no cyanosis and no clubbing Skin: normal turgor and + turgor decreased; no lesions Neurologic: Motor/Sensory: no tremor and no asterixis Psychiatric: Orientation: alert and oriented x 3 Results & Data ([facility]) Vital Signs (Past 12 Hours) Vital Signs Temp Pulse Resp BP Pulse Ox O2 Del Method 04/24/22 07:38 36.9 C 67 16 152/80 H 95 Room Air Laboratory Results Laboratory Results - last 24 hr 04/24/22 04/24/22 04/24/22 08:15 08:15 08:15 WBC 1.50 L RBC 3.66 L Hgb 10.5 L Hct 31.4 L MCV 85.8 MCH 28.7 MCHC 33.4 RDW Std Deviation 43.4 RDW Coeff of Jarrod 14.0 Plt Count 122 L MPV 11.5 Sodium 136 Potassium 3.7 Chloride 103 Carbon Dioxide 26 Anion Gap 7 BUN 22 Creatinine 2.95 H Est Cr Clr Drug Dosing 12.3 Est GFR ( Amer) 16.9 Est GFR (Non-Af Amer) 14.6 BUN/Creatinine Ratio 7.5 L Glucose 92 Calcium 8.8 Phosphorus 3.0 Total Protein (PEP) Pending Albumin 3.2 L Albumin (PEP) Pending Wxcfp-2-Lqqepffmw Pending Qktph-3-Raqijsjxz Pending Raar-5-Ppdwnjod Pending Zmyo-9-Zgnrzpzg Pending Gamma Globulins Pending Monoclonal Peak 3 Pending Ser Monoclonl Protein Pending Ser Monoclonal Prot 2 Pending PEP Interpretation Pending 25-OH Vitamin D Total PTH Intact Serum Immunofixation Pending Free [place] LC, Quant Pending Free Lambda LC, Quant Pending Free [place]/Lambda Ratio Pending 04/24/22 04/24/22 08:15 08:15 WBC RBC Hgb Hct MCV MCH MCHC RDW Std Deviation RDW Coeff of Jarrod Plt Count MPV Sodium Potassium Chloride Carbon Dioxide Anion Gap BUN Creatinine Est Cr Clr Drug Dosing Est GFR ( Amer) Est GFR (Non-Af Amer) BUN/Creatinine Ratio Glucose Calcium Phosphorus Total Protein (PEP) Albumin Albumin (PEP) Qqerj-7-Hhsqgtsne Zmeiw-8-Kizcbnfrh Wlyn-5-Fjtjclmt Iddz-6-Eqpbnhpj Gamma Globulins Monoclonal Peak 3 Ser Monoclonl Protein Ser Monoclonal Prot 2 PEP Interpretation 25-OH Vitamin D Total 78.8 PTH Intact 42.8 Serum Immunofixation Free [place] LC, Quant Free Lambda LC, Quant Free [place]/Lambda Ratio PG Care Time/CCT Total # of Minutes Spent Total Time Spent with Patient: Total time spent is greater than 50% in coordination of care (as documented) at patient's floor/unit and/or counseling patient: Coding Level of Care Code 27922 Subseq Hosp Care Lvl 3 Diagnoses THOMAS (acute kidney injury) N17.9 Hematuria R31.9 Hypertension I10 Hypertension type: essential hypertension (1) Hypertension Hypertension type: essential hypertension Qualified Code(s): I10 - Essential (primary) hypertension
--- NOTE | 2022-04-24 15:26 | Billing Data ---
Date of Service April 24, 2022 Coding Level of Care Code 61718 Subseq Hosp Care Lvl 2
[2022-04-24] MEDS: EZETIMIBE 10 MG TABLET PO SCH (20:22)
[2022-04-25] MEDS: LEVOTHYROXINE SODIUM 75 MCG TABLET PO SCH (05:46)
[2022-04-25 06:38] LABS: Hematocrit (blood only) 29.1 % (34.1-44.9); Hemoglobin 9.7 g/dl (12.0-16.0); Mean Corpuscular Hemoglobin 28.7 pg (25.0-34.0); Mean Corpuscular Hgb Conc 33.3 g/dL (32.0-36.0); Mean Corpuscular Volume 86.1 fL (80.0-100.0); Mean Platelet Volume 11.2 fL (9.4-12.3); Platelet Count 107 K/uL (130-400); RDW Coefficient of Variation 13.9 % (11.5-14.5); RDW Standard Deviation 43.4 fL (36.4-46.3); Red Blood Count 3.38 M/uL (3.93-5.22); White Blood Count 1.18 K/ul (4.8-10.8)
[2022-04-25 07:05] LABS: BUN Creatinine Ratio 8.2 (10-20); Bilirubin,Total 0.7 mg/dl (0.2-1.0); Calcium 8.6 mg/dl (8.5-10.1); Creatinine Clr Calc Pharmacy 12.4 ml/min; Est GFR (Non-African American) 14.6 ml/min; Phosphorus 3.3 mg/dl (2.5-4.9); Potassium 3.4 mmol/L (3.5-5.1)
--- NOTE | 2022-04-25 07:08 | Hospitalist Progress Note ---
Date of Service April 25, 2022 Assessment & Plan (1) THOMAS (acute kidney injury): Plan: Isadora is a 76 year old female with PMH of HTN, CAD, HLD, hypothyroidism, and PUD who presented 04/17/22 with chief concern of nausea, lack of appetite, and weight loss that has progressed over the last couple months. Patient is beign managed for PUD vs. Dyspepsia vs Abdominal Trigger points, but has also been found to have an THOMAS, hematuria, pancytopenia, and pleural effusions. Hypertension - Patient's 0600 BP 212/74 (per nursing), added 10 mg Amlodipine QAM 04/24, held Metoprolol AM (resumed for 04/25) - Home medications: hydralazine 25mg TID, isosorbide mononitritate 30mg, Metoprol succinate ER 25 mg FTT/Weight Loss/Nausea - Etiology considered 2/2 PUD vs. functional dyspepsia vs. malignancy vs. trigger points - Symptomatically improving, yet anorexia continues - Encouraged PO intake and supplementation with boost - Zofran PRN - Continue pepcid, protonix, viscous lidocaine, tums, and maalox (previously improved sx) - Cyprohepatdine 2 mg PO QID started 04/19 for functional dyspepsia - Olanzapine 2.5 mg PO BID added 04/23 AM, improving appetite, continue - Recommending outpatient EGD following discharge - Continue to monitor Pancytopenia - Etiology 2/2 malnutrition vs. malignancy vs. infection - Hx recent melanoma - WBC 1.18 L, Plt 107, Hgb 9.7 - Neutropenic (0.69) - unrevealing peripheral smear - Afebrile - CRP 0.9 H on 04/18 - Procalcitonin negative - Low iron, IBC, and transferrin with normal ferritin - Blood Cultures NGTD @ 5 days - Viral Panel Negative for acute process - Peripheral Smear Cytology normal - Hematology consulted 04/19 ---Anticipate outpatient hematology/oncology follow up THOMAS vs CKD/Hematuria - Etiology considered prerenal vs. intrinsic, chronicity unknown - Cr on admission 2.54, currently 2.94 04/25 (rising) w/ GFR 14.6 (downtrending); most recent baseline 06/10= 0.96 - Nephrology consulted 04/22, following * 9/2 - Unclear etiology of change in kidney fxn, electrolytes acceptable, volume hypervolemic, no emergent need for dialysis, medications appropriate. HTN - asymptomatic, no KASSANDRA/ARB, low threshold to add loop diuretic, defer dietary Na restriction. Hematuria - possibly gross hematuria, chronic bladder changes, recommends urology follow up and outpatient cystoscopy * 04/23 - Cr stable, non-oliguric, calcific vascular disease on CT, duplex pending, recommended loop diuretic. Persistent hematuria, continues to recommend outpatient follow up. HTN- suspect furosemide will benefit BP, recommended consideration of amlodipine if BP remains elevated. * 04/24 - Slight increase in Cr, suspected secondary to intravascular depletion following negative fluid balance, volume acceptable, BP improving, no JAGJIT on duplex. Chronicity of elevation in Cr unknown, sPTH, SPEP/IF pending. Medications appropriate. Additional diuretics held. Goal to maintain even/slightly negative fluids balance. ---Anticipate outpatient urology follow up and cystoscopy CAD - s/p stent placement to LAD in 2016 - Continue ASA 81mg PO daily - Continue Zetia 10mg PO daily - Continue Metoprolol GERD - home regimen 40 mg protonix daily - increased to 40 mg BID d/t concern for progression of PUD HLD - Continue ezetimibe Hypothyroidism - Continue Synthroid 50mcg alternating with 75mcg PO daily - TSH slightly elevated at 4.635 (2) Nausea: (3) Hematuria: (4) CAD (coronary artery disease): (5) GERD (gastroesophageal reflux disease): (6) Hyperlipidemia: (7) Hypothyroidism: Plan Diet: regular Fluids/electrolytes: LR 100 mL/hr d/c 04/22, none at present Consults: hem/onc, nephro Dispo: med Admission and Anticipated Discharge Date Admission Date: April 17, 2022 Adin Muir is a 76 year old female with PMH of HTN, CAD, HLD, hypothyroidism, and PUD who presented 04/17/22 with chief concern of nausea, lack of appetite, and weight loss that has progressed over the last couple months. Patient is beign managed for PUD vs. Dyspepsia vs Abdominal Trigger points, but has also been found to have an THOMAS, hematuria, pancytopenia, and pleural effusions. Has been tolerating a full diet without nausea/vomiting. She was starting on Zyprexa 04/23 which has significantly helped. Denies any chest pain, shortness of breath, visual changes, abdominal pain, pleuritic pain. Ongoing headache, resolved by Tylenol. Urinating without issue; denies increased frequency, dysuria. Physical Exam Physical Exam: Constitutional: well-appearing, no acute distress HEENT: NCAT, no conjunctival injection CV: regular rhythm, no murmur appreciated, extremities well-perfused, no LE edema Resp: CTABL, no wheezes/rales/rhonchi appreciated, no increased work of breathing GI: normal bowel sounds, soft, nondistended, nontender, BS normoactive MSK: no gross deformities appreciated Skin: warm, dry, no rash appreciated Neuro: alert, oriented, no focal neurologic deficit appreciated Results & Data Results & Data ([facility] [place]) Vital Signs (Past 12 Hours) Vital Signs Temp Pulse Resp BP Pulse Ox O2 Del Method 04/25/22 07:55 36.7 C 82 16 172/69 H 95 Room Air (1) GERD (gastroesophageal reflux disease) Esophagitis presence: esophagitis presence not specified Qualified Code(s): K21.9 - Gastro-esophageal reflux disease without esophagitis
[2022-04-25] MEDS ORDERED: POTASSIUM CHLORIDE CRTAB 20 MEQ TABCR PO STA (07:15)
[2022-04-25 07:27] LABS: Basophils # (auto) 0.02 K/uL (0-0.2); Basophils % (auto) 1.7 %; Eosinophils # (auto) 0.02 K/uL (0-0.50); Eosinophils % (auto) 1.7 %; Immature Granulocytes # (auto) 0.01 K/uL (0.00-0.02); Immature Granulocytes % (auto) 0.8 %; Lymphocytes # (auto) 0.61 K/uL (1.2-3.4); Lymphocytes % (auto) 51.7 %; Monocytes # (auto) 0.07 K/uL (0.24-0.82); Monocytes % (auto) 5.9 %; Neutrophils # (auto) 0.45 K/uL (1.4-6.5); Neutrophils % (auto) 38.2 %
[2022-04-25] MEDS: CYPROHEPTADINE HCL 4 MG TAB PO SCH ×2 (07:34→11:28)
[2022-04-25] MEDS: SUCRALFATE 1 GM/10 ML UDC PO SCH ×2 (07:35→11:28)
[2022-04-25] MEDS: ASPIRIN 81 MG ECTAB PO SCH (08:25)
[2022-04-25] MEDS: METOPROLOL SUCC 25MG EXT REL TAB PO SCH (08:25)
[2022-04-25] MEDS: ISOSORBIDE MONO EXTENDED REL 30 MG TABCR PO SCH (08:25)
[2022-04-25] MEDS: hydrALAZINE HCL 25 MG TAB PO SCH ×2 (08:25→14:26)
[2022-04-25] MEDS: amLODIPine BESYLATE 5 MG TAB PO SCH (08:25)
[2022-04-25] MEDS: FAMOTIDINE 20 MG TAB PO SCH (08:25)
[2022-04-25] MEDS: PANTOprazole 40 MG TAB PO SCH (08:25)
[2022-04-25] MEDS: OLANZAPINE 2.5 MG TAB PO SCH (08:25)
[2022-04-25] MEDS: CEROVITE ADV FORMULA TAB PO SCH (08:25)
[2022-04-25] MEDS: AZELASTINE HCL 0.1% NASAL 200 SPRAYS/27,400 MCG BTL SCH (08:26)
--- NOTE | 2022-04-25 11:47 | Nephrology Progress Note ---
Date of Service April 25, 2022 Assessment & Plan (1) THOMAS (acute kidney injury): Plan: Creatinine stable. Chronicity unclear. Thankfully, no noted worsening. Volume status acceptable. BP fluctuating but overall I anticipate improvement today with amlodipine. Receiving KCl supplementation for hypokalemia. SPEP/IF pending. Medications are appropriate for kidney function. Avoid NSAIDS. No KASSANDRA/ARB at this time. Additional diuretics held today. Goal is to maintain an even to slightly negative fluid balance. Close outpatient follow up with nephrology within 1 week of discharge requested. Plan of care was discussed with Dr. Stacy and his team this time. (2) Hematuria: Plan: Outpatient urology follow up. Urine cytology pending. (3) Hypertension: Plan: Noted improvement yesterday with amlodipine. Medication provided again this AM with monitoring. Avoid additional diuretics at this time. Admission and Anticipated Discharge Date Admission Date: April 17, 2022 Subjective No acute events overnight. No complaints this AM. Isadora continues to report improvement. Appetite slowly improving. No new GI symptoms reported. Review of Systems Review of Systems: All systems reviewed & are unremarkable except as noted in HPI & below Physical Exam Constitutional: well developed and + thin; no acute distress Eyes: + anicteric sclerae; no corneal abnormality Neck: normal visual inspection and trachea midline Respiratory: normal respiratory effort Auscultation: lungs clear to auscultation bilaterally Cardiovascular: Rate/Rhythm: regular rate Heart Sounds: normal S1 and normal S2 Extremities: + pedal edema Musculoskeletal: Extremities: no cyanosis and no clubbing Skin: normal turgor and + turgor decreased; no lesions Neurologic: Motor/Sensory: no tremor and no asterixis Psychiatric: Orientation: alert and oriented x 3 Results & Data ([facility]) Vital Signs (Past 12 Hours) Vital Signs Temp Pulse Resp BP Pulse Ox O2 Del Method 04/25/22 07:55 36.7 C 82 16 172/69 H 95 Room Air Laboratory Results Laboratory Results - last 24 hr 04/25/22 04/25/22 05:52 05:52 WBC 1.18 L RBC 3.38 L Hgb 9.7 L Hct 29.1 L MCV 86.1 MCH 28.7 MCHC 33.3 RDW Std Deviation 43.4 RDW Coeff of Jarrod 13.9 Plt Count 107 L MPV 11.2 Immature Gran % (Auto) 0.8 Neut % (Auto) 38.2 Lymph % (Auto) 51.7 [place] % (Auto) 5.9 Eos % (Auto) 1.7 Baso % (Auto) 1.7 Neut # (Auto) 0.45 L* Lymph # (Auto) 0.61 L [place] # (Auto) 0.07 L Eos # (Auto) 0.02 Baso # (Auto) 0.02 Immature Gran # (Auto) 0.01 Sodium 138 Potassium 3.4 L Chloride 106 Carbon Dioxide 25 Anion Gap 7 BUN 24 H Creatinine 2.94 H Est Cr Clr Drug Dosing 12.4 Est GFR ( Amer) 17.0 Est GFR (Non-Af Amer) 14.6 BUN/Creatinine Ratio 8.2 L Glucose 78 Calcium 8.6 Phosphorus 3.3 Total Bilirubin 0.7 AST 32 ALT 10 Alkaline Phosphatase 61 Total Protein 6.0 Albumin 3.0 L Globulin 3.0 Albumin/Globulin Ratio 1.0 PG Care Time/CCT Total # of Minutes Spent Total Time Spent with Patient: Total time spent is greater than 50% in coordination of care (as documented) at patient's floor/unit and/or counseling patient: Coding Level of Care Code 04442 Subseq Hosp Care Lvl 3 Diagnoses THOMAS (acute kidney injury) N17.9 Hematuria R31.9 Hypertension I10 Hypertension type: essential hypertension (1) Hypertension Hypertension type: essential hypertension Qualified Code(s): I10 - Essential (primary) hypertension
--- NOTE | 2022-04-25 13:08 | Discharge Summary ---
Date of Service April 25, 2022 Admission HPI Per Admitting Provider Isadora Ervin is a 76yo female with history of HTN, HLP, GERD and CAD s/p CRUZITO to LAD in 2017. Patient reports she has been having poor oral intake for the last several months with associated weight loss. She first reports that she had early satiety starting several months ago. She would eat about 25% of her meal then fell full and become nauseated. Over the last month she reports decreased oral intake - becomes nauseated after eating a small amount of food. At times she becomes nauseated with thinking about eating and is becoming increasingly anxious with eating. Today she states she was not even able to eat applesauce or drink fluids without becoming nauseated. She reports feeling nauseated all day today. She also had one episode of watery diarrhea a well as headache and chills. She reports having an appetite - she feels hungry and wants to eat. She has no problems chewing, no dental or oral pain. She is able to swallow without dysphagia or odynophagia. No oral ulcers or lesions. She denies abdominal pain or bloating, vomiting. Denies eating disorder history She does state that food tastes different and often tastes poorly She had an EGD performed 11/09 which was largely unremarkable with exception of antral ulcers which were thought to be secondary to NSAID induced gastropathy. Biopsies were performed which were NEGATIVE for malignancy. H.pylori testing was also NEGATIVE. She was seen by GI on 01/04/22. At that visit her Protonix 40mg was decreased from BID to daily (was on BID x 3 months). Admission Exam Per Admitting Provider General: patient resting comfortably, NAD, non-toxic in appearance, AA&O x 4 Skin: warm, dry, intact, no rashes or lesions HEENT: NC/AT, PERRL, EOMI, anicteric sclera, conjunctiva without injection, external ear normal to inspection and nontender, nares patent, DRY mucus membranes, dentition intact, no oropharyngeal lesions, neck supple, trachea midline, no LAD, no thyromegaly, no JVD Heart: +S1/S2, regular, no m/r/g Lungs: equal air entry bilaterally, no rales/rhonchi/wheezes Abd: +BS, soft, NT/ND, no masses/organomegaly/ascites Ext: warm, 2+ pulses in UE/LE bilaterally, no clubbing/cyanosis or edema Neuro: nonfocal, patient AA&O x 4, speech intact, no facial droop, moving all extremities on command with equal strength 5/5 Principal Diagnosis Nausea Acute on Chronic Kidney Disease Discharge Exam Constitutional: well-appearing, no acute distress HEENT: NCAT, no conjunctival injection CV: regular rhythm, no murmur appreciated, extremities well-perfused, no LE edema Resp: CTABL, no wheezes/rales/rhonchi appreciated, no increased work of bayron athing GI: normal bowel sounds, soft, nondistended, nontender, BS normoactive MSK: no gross deformities appreciated Skin: warm, dry, no rash appreciated Neuro: alert, oriented, no focal neurologic deficit appreciated Discharge Data Allergies Allergy/AdvReac Type Severity Reaction Status Date / Time alcohol Allergy Unknown Verified 04/17/22 21:57 [From Mastisol Adhesive] atorvastatin [From Lipitor] Allergy Unknown Verified 04/17/22 21:57 citalopram [From Celexa] Allergy Unknown Verified 04/17/22 21:57 fexofenadine Allergy Unknown Verified 04/17/22 21:57 [From Rebecca-D 12 Hour] gum mastic Allergy Unknown Verified 04/17/22 21:57 [From Mastisol Adhesive] ketorolac [From Toradol] Allergy Unknown Verified 04/17/22 21:57 methyl salicylate Allergy Unknown Verified 04/17/22 21:57 [From Mastisol Adhesive] pseudoephedrine Allergy Unknown Verified 04/17/22 21:57 [From Rebecca-D 12 Hour] simvastatin [From Zocor] Allergy Unknown Verified 04/17/22 21:57 storax Allergy Unknown Verified 04/17/22 21:57 [From Mastisol Adhesive] clarithromycin AdvReac Intermediate MOUTH SORES Verified 04/17/22 21:57 Consultations 04/17/22 22:41 ED Decision to Admit Stat 04/19/22 15:07 Consult Hematology Routine 04/22/22 11:09 Consult Nephrology Routine 04/22/22 13:22 Consult Lung Nodule Program Routine Ordered Studies 04/17/22 21:11 CT head/brain wo con Urgent Brain parenchyma: There is age-related involutional change noting mild subcortical and periventricular microangiopathic disease. There is no hemorrhage, mass effect, or evidence of acute territorial ischemia by CT criteria. Saenz-white matter differentiation is preserved. The pineal gland is densely calcified. No extra-axial fluid collection is seen. Ventricles, sulci, cisterns: Prominent secondary to involutional change. Intracranial vasculature: There is atherosclerotic calcification of the cavernous carotid and vertebral arteries. Calvarium: Unremarkable. Sinuses and mastoids: There is evidence of previous paranasal sinus surgery. The visualized paranasal sinuses are clear. The mastoid air cells are well pneumatized. Orbits: The bony orbits are grossly intact. There are bilateral ocular lens implants. IMPRESSION: There is no hemorrhage, mass effect, or evidence of acute territorial ischemia by CT criteria. 04/17/22 21:40 CT abd pelvis wo con Urgent FINDINGS: There are 2 new nodules within the right lower lobe measure up to 3 mm on images 27 and 59. These favor small foci of inflammatory/infectious change given the recent interval change. Similar-appearing 3 mm nodule within the lingula on image 12 which is also new. No pneumoperitoneum. No pneumatosis. No fractures within the visualized osseous structures. The unenhanced liver, spleen, adrenal glands, pancreas, left kidney are unremarkable. Stable 1.7 cm cyst within the right kidney. No renal or ureteral stones. No hydronephrosis. Mild calcified plaque within the normal caliber abdominal aorta. Prior cholecystectomy, hysterectomy, and appendectomy. The bladder is unremarkable. Prior rectosigmoid anastomosis. Suboptimal evaluation for bowel pathology due to the lack of intravenous and oral contrast. However, there is no definite bowel wall thickening or obstruction. IMPRESSION: 1. No definite bowel wall thickening or obstruction. 2. A few subcentimeter pulmonary nodules within the lung bases measuring up to 3 mm. Although technically indeterminate these favor small foci of inflammatory/infectious change given the recent interval change. 3. Postoperative changes as described above. 04/21/22 11:07 CT chest diagnostic wo con Urgent Thyroid: Atrophic and heterogeneous. Thoracic aorta: There is atherosclerotic calcification of the thoracic aorta, which is normal in caliber and demonstrates standard 3-vessel arch anatomy. Heart: The heart is enlarged and without pericardial effusion. The coronary arteries are densely calcified. There is diminished attenuation of the cardiac blood pool as compared to the myocardium suggesting anemia. Lungs and pleural spaces: There are small pleural effusions with dependent atelectasis. Intralobular septal thickening is seen throughout both lungs. Foci of patchy groundglass change in both lungs suggests mild pulmonary edema. The trachea and central airways are clear. A 3 mm right lower lobe pulmonary nodule seen on image #221 cm in suspicion. Mediastinum: There is no mediastinal lymphadenopathy. Judith: Not well assessed without IV contrast. Axillae: There is no axillary lymphadenopathy. Upper abdomen: There are calcified splenic granulomas. Partially visualized upper abdominal viscera is otherwise grossly unremarkable. Skeletal structures: The skeletal structures are osteopenic. Mild degenerative change is noted in the shoulders and thoracic spine. No lytic or blastic bony lesions are seen. IMPRESSION: 1. Cardiomegaly without evidence of congestive failure. 2. Small pleural effusions with dependent atelectasis. This is new from 04/17/2022. 3. Scattered foci of patchy groundglass change suggest pulmonary edema. Clinical correlation will be required and radiographic follow-up to resolution is recommended. 4. Pleural effusions and pulmonary edema obscures the evaluation for pulmonary nodules. A six-month follow-up chest CT is recommended for reevaluation. 5. Additional findings as above. 04/23/22 08:23 US duplex renal artery Routine FINDINGS: No elevated velocities within the bilateral renal arteries to suggest a stenosis. The bilateral renal arcuate arteries demonstrate normal resistive indices less than 0.75. The bilateral renal veins are patent. IMPRESSION: No evidence for renal artery stenosis. Hospital Course (1) THOMAS (acute kidney injury): Isadora is a 76 year old female with PMH of HTN, CAD, HLD, hypothyroidism, and PUD who presented 04/17/22 with chief concern of nausea, lack of appetite, and weight loss that has progressed over the last couple months. Patient was initially managed for PUD vs. Dyspepsia vs Abdominal Trigger points, but has also been found to have an THOMAS, hematuria, pancytopenia, and pleural effusions. FTT/Weight Loss/Nausea - Etiology most likely PUD vs functional dyspepsia. She was started on a variety of medications for PUD/functional dyspepsia and was discharged on famotidine, cyproheptadine, sucralfate. She was also started on Zyprexa, which significantly improved her nausea. At discharge she was able to tolerate a full diet. - Would recommend outpatient EGD following discharge and a follow up appointment was made with GI. Hypertension - Blood pressure was evaluated to 200s/80s. We started her on 10mg of amlodipine and continued her prior home medications including hydralazine 25mg TID, isosorbide mononitrate 30mg, Metoprol succinate ER 25 mg. Pancytopenia - Etiology most likely due to malnutrition, but could be malignancy. - WBC 1.18 L, Plt 107, Hgb 9.7, neutropenic (0.69) with unrevealing peripheral smear - CRP= 0.9 - Low iron, IBC, and transferrin with normal ferritin - No acute infection: Afebrile with a negative procalcitonin and negative blood cultures, viral panel negative - Heme/Onc was consulted and pt will follow up with them as an outpatient. THOMAS vs CKD/Hematuria - Etiology most likely secondary to malnutrition/poor oral intake for the past couple of months - Cr on admission 2.54, madelin to 2.94 and remained stable there - Nephrology consulted. She received a dose of lasix and her creatine did not improve, so unlikely due to volume hypervolemia. No JAGJIT on duplex. They did not feel dialysis was indicated at this time. She will follow up this week with nephrology. - sPTH, SPEP/IF pending - Hematuria with chronic bladder changes; she will follow up with urology for further workup Lung Nodule - Lung nodule program was consulted and she will get a follow up for repeat CT. CAD - s/p stent placement to LAD in 2017 - Continue ASA 81mg PO daily - Continue Zetia 10mg PO daily - Continue Metoprolol GERD - home regimen 40 mg protonix daily - increased to 40 mg BID d/t concern for progression of PUD HLD - Continue ezetimibe Hypothyroidism - Continue Synthroid 50mcg alternating with 75mcg PO daily - TSH slightly elevated at 4.635 (2) Nausea: (3) Hematuria: (4) CAD (coronary artery disease): (5) GERD (gastroesophageal reflux disease): (6) Hyperlipidemia: (7) Hypothyroidism: Total Time Total Time Spent Total Time Spent (In Minutes): 45 Discharge Plan Discharge Items Patient Disposition: Home - Self-Care Reason For Visit: THOMAS, NAUSEA Discharge Diagnosis: Malnutrition, Acute on Chronic Kidney Disease Activity: Resume your previous activity Non-emergency contact: Primary Care Provider Call non-emergency contact if: you have any medication questions and your symptoms worsen Follow-up/Referrals: Jean Tony DO [Physician] - Mulugeta Masters DO [Physician] - (Hematuria eval ) Gal Meier DO [Primary Care Provider] - Patrick Lee [Physician] - (Already has EGD scheduled. Needs follow up outpatient appointment. ) Kathy Alicia MD [Physician] - Diet: Regular Addtl Attending Provider Instructions: You were admitted to the hospital for nausea. You were treated with fluids and various medications. We started you on a medication called Olanzapine, which significantly improved your nausea. We will send you home with a prescription for this medication, which you can continue until your follow up appointment with your primary care doctor. We also found that your creatine, a number that is indicative of your kidney function, was elevated. This could be related to your decrease appetite/fluid intake over the past few months. The pillowcase cleaner (kidney doctor) saw you, and you will follow up with them in their outpatient office. Some of your blood counts were also low. This could also be related to malnutrition. We talked to the leach cell operator (blood doctor) and they would like to see you in their outpatient office. Your blood pressure was elevated. We added another blood pressure medication, called amlodipine. Continue to take this medication until you follow up with your primary care doctor. We discussed checking you blood pressure at home a few times a week. A discharge summary will be sent to your primary care physician to ensure continuity of care. Please bring this discharge summary with you to your next office appointment so that your provider can review it at that time. Follow-up appointments: We have requested a follow-up appointment with your primary care physician within one week of discharge. Please call their office if you do not hear from them. - We also contacted the leach cell operator and nephrology for a follow-up appointment. Please call their office if you do not hear from them. Medications: Your medication list has been reviewed and reconciled upon discharge to ensure accuracy and continuity of care. An updated list of all your medications is included with your hospital discharge paperwork. Please review this list closely, and make note of any changes. We sent a new medication called Olanzapine to your pharmacy. Take Olanzapine 2.5mg one tablet twice a day for nausea until your follow up with your primary care doctor. We sent a new medication called amlodipine 10mg. Take the amlodipine 2 5mg tablets once daily until your follow up appointment with your primary care doctor. This medication is for you elevated blood pressure. We sent a new medication called cyproheptadine. You can take 1/2 of the 4mg tablet as needed for nausea 1-2 hours before meals. We sent a new medication called famotidine to your pharmacy. You can take 1 tablet 2 times per day. We sent a new medication called sucralfate. You can take 1g prior to meals and before bedtime. If you have any issues filling these prescriptions, please call [phone] and ask to leave a message for Dr. Chavira. Take your medications as instructed; do not skip a dose of your medicines. Make sure all of your doctors know every medicine you are taking (including [id number] medicines, vitamins, and supplements). Call your primary care provider before taking any new medicines (including over- the-counter medicines, vitamins, and supplements), because some of these may interact with your current medications, or may make your symptoms worse. Tell your primary care provider if you cannot afford your medications. CONTACT YOUR PRIMARY CARE PROVIDER if you experience any of the following: Return of your nausea which makes it so you can't eat or drink Difficulty following your treatment plan, or difficulty taking medications CALL 911 OR GO TO THE EMERGENCY DEPARTMENT if you experience any of the following: Elevated blood pressure readings with a headache, vision changes, chest pain, or shortness of breath Thank you for allowing us to participate in your care. Pending Studies at Discharge: Yes Studies:: Copper, Zinc, SPEP/IF Stand-Alone Forms: My [facility] Medications and DC Order Prescriptions: New sucralfate 100 mg/mL Suspension 1 g PO ACHS 30 Days Qty: 300 0RF amlodipine [Norvasc] 5 mg Tablet 10 mg PO QAM 30 Days Qty: 60 0RF olanzapine 2.5 mg Tablet 2.5 mg PO BID 30 Days Qty: 60 0RF cyproheptadine 4 mg Tablet 2 mg PO ACHS 30 Days Qty: 15 0RF famotidine 20 mg Tablet 20 mg PO BID 30 Days Qty: 60 0RF Continued hydralazine 25 mg tablet 25 mg PO TID Qty: 270 3RF cholecalciferol (vitamin D3) 25 mcg/drop ( 1,000 unit/drop) drops 150 mcg PO DAILY Rx Instructions: 6 drop dose per patient Restasis MultiDose 0.05 % drops 1 drp ophthalmic (eye) Q12H azelastine 137 mcg (0.1 %) aerosol,spray 2 spray intranasal DAILY Qty: 30 11RF levothyroxine 75 mcg tablet 75 mcg PO Q2D Rx Instructions: alternate daily with 50mcg levothyroxine 50 mcg tablet 50 mcg PO Q2D Rx Instructions: Alternate daily with 75mcg aspirin [Joaquin Low Dose Aspirin] 81 mg Tablet,Delayed Release (Dr/Ec) 81 mg PO DAILY pantoprazole 40 mg tablet,delayed release (DR/EC) 40 mg PO QAM isosorbide mononitrate 30 mg tablet extended release 24 hr 30 mg PO QAM ezetimibe 10 mg tablet 10 mg PO QPM metoprolol succinate 50 mg tablet extended release 24 hr 25 mg PO QAM Rx Instructions: 1/2 tablet dose [id number] carb-vit K 18 mg iron-400 mcg-500 mg Tablet 1 tab PO QAM vitamin E 268 mg (400 unit) Capsule 268 mg PO QAM Allergy Shot 1 dose INJ . EVERY 2 WEEKS Discharge Orders: Discharge Order (Routine); Ordered 04/25/22 Ordered By: Sara Chavira Admission Data Admit Date/Time: 04/17/22 23:31 Attending Provider: Dae Stacy Admit Provider: Louann Greenberg Primary Care Provider: Gal Meier Other Providers: Louann Greenberg ; Kathy Alicia ; Jean Tony Other Interventions: Discharge Summary Assessment (RN) Last Done: 04/25/22 15:20 Supervising Physician Co-Signing Physician Notes Attending attestation Pt seen and examined in concert with Dr. Chavira. In agreement with the documented findings as noted in the resident documentation with any exceptions or additions as noted here. Mild intermittent NOGUEIRA resolved with APAP and otherwise feeling much improved. On examination, S1/S2 nl RRR no MCG. CTAB. Abd NT/ND BS+ve, nursing notes and VS reviewed. Nausea with weight loss - outpatient GI appointment - reviewed pathology and evaluation with daughter. Continue Po regimen as noted on discharge and follow up with PCP with consideration of tapering following GI eval. HTN - reviewed condition with daughter and patient - continue amlodipine 10mg and home regimen and follow closely Pancytopenia - hematology outpatient appointment - infectious precautions reviewed Else see resident documentation as noted. Total attending physician time spent with this patient's care on the day of discharge: 45 minutes. Resident Activity Tracking Resident Involvement: Resident Care Provided Care Provided: [facility] Medicine
[2022-04-26 18:32] LABS: Copper, Serum 91 mcg/dL (70-175); Zinc 53 mcg/dL (60-130)
[2022-04-27 18:22] LABS: Albumin 3.3 g/dL (3.8-4.8); Alpha 1 Globulin 0.4 g/dL (0.2-0.3); Alpha 2 Globulin 0.5 g/dL (0.5-0.9); Beta-1-Globulin 0.3 g/dL (0.4-0.6); Beta-2-Globulin 0.3 g/dL (0.2-0.5); Free Kappa 151.8 mg/L (3.3-19.4); Free Kappa/Lambda Ratio 1.07 (0.26-1.65); Free Lambda 141.9 mg/L (5.7-26.3); Gamma Globulin 1.7 g/dL (0.8-1.7); Monoclonal Protein Band 1 DNR g/dL (NONE DETECTED); Monoclonal Protein Band 2 DNR g/dL (NONE DETECTED); Monoclonal Protein Band 3 DNR g/dL (NONE DETECTED); Total Protein 6.6 g/dL (6.1-8.1)
== END 2022-04-25 15:50 | disposition home or self-care (01) | DRG 683 ==
LOC: ED 20:37 → 3W 23:31 → SUATTDRO 23:31 → 3W 04-18 01:20